=== PATIENT | female | born 1960 | race Caucasian/White ===

== ENCOUNTER 2020-03-27 11:50 | Inpatient (IN) | payer MEDICARE, MEDICAID ==
[2020-03-27] VITALS (7 sets, daily range): BP systolic 65–116; BP diastolic 41–62
[~2020-03-27] VITALS: Ht 162 cm; Wt 176.0 kg
[2020-03-27 12:26] LABS: ABG BASE EXCESS 5.9 MMOL/L (-2.5-2.5); ABG OXYGEN SATURATION 89 % (94-100); ABG PCO2 55 MMHG (35-45); ABG PH 7.37 (7.37-7.43); ABG PO2 63 MMHG (79-93); ABG TCO2 32.2 MMOL/L (21.0-31.0)
[2020-03-27 12:27] LABS: PATIENT TEMP 38.4; VENTILATOR NO
[2020-03-27 12:29] LABS: BASOPHILS % (AUTO) 0 % (0-10); EOSINOPHILS % (AUTO) 0 % (0-10); HEMATOCRIT 39 % (35-52); HEMOGLOBIN 11.8 g/dL (11.5-16.0); LYMPHOCYTES # (AUTO) 0.7 10^3/uL (1.0-4.0); LYMPHOCYTES % (AUTO) 17 % (12-44); MEAN CORPUSCULAR HEMOGLOBIN 28 pg (25-34); MEAN CORPUSCULAR HGB CONC 31 g/dL (32-36); MEAN CORPUSCULAR VOLUME 93 fL (80-99); MEAN PLATELET VOLUME 11.4 fL (9.0-12.2); MONOCYTES # (AUTO) 0.4 10^3/uL (0.0-1.0); MONOCYTES % (AUTO) 8 % (0-12); NEUTROPHILS # (AUTO) 3.2 10^3/uL (1.8-7.8); NEUTROPHILS % (AUTO) 74 % (42-75); PLATELET COUNT 175 10^3/uL (130-400); WHITE BLOOD COUNT 4.3 10^3/uL (4.3-11.0)
[2020-03-27 12:32] LABS: ALBUMIN 3.4 GM/DL (3.2-4.5)
[2020-03-27 12:32] LABS: BILIRUBIN,URINE NEGATIVE (NEGATIVE); CLARITY,URINE CLEAR; COLOR,URINE YELLOW; GLUCOSE, URINE (UA) NEGATIVE (NEGATIVE); KETONES,URINE NEGATIVE (NEGATIVE); LEUKOCYTE ESTERASE ,URINE NEGATIVE (NEGATIVE); NITRITE,URINE POSITIVE (NEGATIVE); PROTEIN,URINE 2+ (NEGATIVE)
--- NOTE | 2020-03-27 12:32 | ED General ---
General Chief Complaint: Respiratory Problems Stated Complaint: COVID + Source of Information: Patient Exam Limitations: No Limitations History of Present Illness Date Seen by Provider: Mar 27, 2020 Time Seen by Provider: 12:00 Initial Comments Patient is a 59-year-old female who presents to the emergency department today with a chief complaint of shortness of breath. Patient lives in a local senior care. She has been in and out of the hospital over the last 6 months with sepsis and then for rehab. Most recent admission to the senior care was a week ago this past Wednesday. Patient had a COVID-19 test on Wednesday. She started developing symptoms in the last 48 hours. She has had shortness of breath productive cough, body aches, generalized weakness. Patient is also had a mild sore throat. She denies headache, GI symptoms, symptoms. She is on supplemental oxygen at 15 L per nonrebreather at the time of my initial evaluation satting 86 to 87%. She exhibits obvious increased work of breathing with 4-5 word sentences. She also complains of a diffuse papular rash to her torso and bilateral upper extremities that has been present for the last week or 2. All other review of systems reviewed and negative except as stated above. Timing/Duration: 2-3 Days Severity: Severe Associated Systoms: Fever/Chills, Malaise, Shortness of Air Allergies and Home Medications Allergies Coded Allergies: Penicillins (Verified Allergy, Unknown, 03/27/20) acetylcholine (Verified Allergy, Unknown, 03/27/20) amoxicillin (Verified Allergy, Unknown, 03/27/20) clarithromycin (Verified Allergy, Unknown, 03/27/20) levofloxacin (Verified Allergy, Unknown, 03/27/20) Patient Home Medication List Home Medication List Reviewed: Yes Review of Systems Review of Systems Constitutional: fever, malaise, weakness EENTM: throat pain Respiratory: cough, short of breath Cardiovascular: no symptoms reported Gastrointestinal: no symptoms reported Genitourinary: no symptoms reported Musculoskeletal: no symptoms reported Skin: rash Psychiatric/Neurological: No Symptoms Reported All Other Systems Reviewed Negative Unless Noted: Yes Physical Exam-Suspected Sepsis Physical Exam Vital Signs Vital Signs - First Documented 03/27/20 14:38 FiO2 100 Capillary Refill : Height, Weight, BMI Height: '" Weight: lbs. oz. kg; BMI Method: General Appearance: No Apparent Distress, WD/WN, Moderate Distress Eyes: Bilateral Eye Normal Inspection, Bilateral Eye PERRL, Bilateral Eye EOMI Neck: Full Range of Motion Respiratory: No Normal Breath Sounds; Respiratory Distress, Rhonci (Coarse rhonchus breath sounds throughout bilateral lung fuller) Cardiovascular: Regular Rate, Rhythm, Tachycardia Gastrointestinal: Normal Bowel Sounds, Non Tender, Soft Extremity: Other (1-2+ edema bilateral lower extremities. 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 Nonexcoriated, nondraining, nonpustular) Focused Exam Lactate Level 03/27/20 12:00: Lactic Acid Level 0.78 Lactic Acid Level Progress/Results/Core Measures Suspected Sepsis SIRS Temperature: Pulse: Respiratory Rate: Laboratory Tests 03/27/20 12:00: White Blood Count 4.3 Blood Pressure / Mean: 03/27/20 12:00: Lactic Acid Level 0.78 Laboratory Tests 03/27/20 12:00: Creatinine 0.85, INR Comment 1.0, Platelet Count 175, Total Bilirubin 0.4 Results/Orders Lab Results Laboratory Tests Test 03/27/20 12:00 03/27/20 12:06 03/27/20 12:19 03/27/20 15:15 Range/Units White Blood Count 4.3 4.3-11.0 10^3/uL Red Blood Count 4.15 3.80-5.11 10^6/uL Hemoglobin 11.8 11.5-16.0 g/dL Hematocrit 39 35-52 % Mean Corpuscular Volume 93 80-99 fL Mean Corpuscular Hemoglobin 28 25-34 pg Mean Corpuscular Hemoglobin Concent 31 L 32-36 g/dL Red Cell Distribution Width 14.2 10.0-14.5 % Platelet Count 175 130-400 10^3/uL Mean Platelet Volume 11.4 9.0-12.2 fL Immature Granulocyte % (Auto) 0 % Neutrophils (%) (Auto) 74 42-75 % Lymphocytes (%) (Auto) 17 12-44 % Monocytes (%) (Auto) 8 0-12 % Eosinophils (%) (Auto) 0 0-10 % Basophils (%) (Auto) 0 0-10 % Neutrophils # (Auto) 3.2 1.8-7.8 10^3/uL Lymphocytes # (Auto) 0.7 L 1.0-4.0 10^3/uL Monocytes # (Auto) 0.4 0.0-1.0 10^3/uL Eosinophils # (Auto) 0.0 0.0-0.3 10^3/uL Basophils # (Auto) 0.0 0.0-0.1 10^3/uL Immature Granulocyte # (Auto) 0.0 0.0-0.1 10^3/uL Prothrombin Time 13.5 12.2-14.7 SEC INR Comment 1.0 0.8-1.4 Activated Partial Thromboplast Time 30 24-35 SEC D-Dimer 1.11 H 0.00-0.49 UG/ML Sodium Level 139 135-145 MMOL/L Potassium Level 4.1 3.6-5.0 MMOL/L Chloride Level 99 98-107 MMOL/L Carbon Dioxide Level 27 21-32 MMOL/L Anion Gap 13 5-14 MMOL/L Blood Urea Nitrogen 13 7-18 MG/DL Creatinine 0.85 0.60-1.30 MG/DL Estimat Glomerular Filtration Rate > 60 BUN/Creatinine Ratio 15 Glucose Level 132 H 70-105 MG/DL Lactic Acid Level 0.78 0.50-2.00 MMOL/L Calcium Level 8.0 L 8.5-10.1 MG/DL Corrected Calcium 8.5 8.5-10.1 MG/DL Total Bilirubin 0.4 0.1-1.0 MG/DL Aspartate Amino Transf (AST/SGOT) 28 5-34 U/L Alanine Aminotransferase (ALT/SGPT) 22 0-55 U/L Alkaline Phosphatase 117 40-136 U/L C-Reactive Protein High Sensitivity 10.77 H 0.00-0.50 MG/DL Total Protein 6.5 6.4-8.2 GM/DL Albumin 3.4 3.2-4.5 GM/DL Triglycerides Level 68 <150 MG/DL Procalcitonin 0.10 H <0.10 NG/ML Blood Gas Puncture Site "AXILLARY" RIGHT RADIAL Blood Gas Patient Temperature 38.4 37.2 Arterial Blood pH 7.37 7.36 L 7.37-7.43 Arterial Blood Partial Pressure CO2 55 H 58 H 35-45 MMHG Arterial Blood Partial Pressure O2 63 L 62 L 79-93 MMHG Arterial Blood HCO3 31 H 32 H 23-27 MMOL/L Arterial Blood Total CO2 32.2 H 33.3 H 21.0-31.0 MMOL/L Arterial Blood Oxygen Saturation 89 L 90 L 94-100 % Arterial Blood Base Excess 5.9 H 6.2 H -2.5-2.5 MMOL/L Luis Test UNK POSITVE Blood Gas Ventilator Setting NO NO Blood Gas Inspired Oxygen UNK 100% BIPAP Urine Color YELLOW Urine Clarity CLEAR Urine pH 6.0 5-9 Urine Specific [place] 1.025 H 1.016-1.022 Urine Protein 2+ H NEGATIVE Urine Glucose (UA) NEGATIVE NEGATIVE Urine Ketones NEGATIVE NEGATIVE Urine Nitrite POSITIVE H NEGATIVE Urine Bilirubin NEGATIVE NEGATIVE Urine Urobilinogen 1.0 < = 1.0 MG/DL Urine Leukocyte Esterase NEGATIVE NEGATIVE Urine RBC (Auto) NEGATIVE NEGATIVE Urine RBC RARE /HPF Urine WBC 0-2 /HPF Urine Squamous Epithelial Cells 10-25 H /HPF Urine Crystals NONE /LPF Urine Bacteria LARGE H /HPF Urine Casts NONE /LPF Urine Mucus NEGATIVE /LPF Urine Yeast MODERATE H /HPF Urine Culture Indicated CULTURE PENDING Test 03/27/20 16:55 03/27/20 18:01 Range/Units Blood Gas Puncture Site RIGHT RADIAL Blood Gas Patient Temperature 36.8 Arterial Blood pH 7.34 *L 7.37-7.43 Arterial Blood Partial Pressure CO2 57 H 35-45 MMHG Arterial Blood Partial Pressure O2 58 L 79-93 MMHG Arterial Blood HCO3 30 H 23-27 MMOL/L Arterial Blood Total CO2 31.4 H 21.0-31.0 MMOL/L Arterial Blood Oxygen Saturation 90 L 94-100 % Arterial Blood Base Excess 4.2 H -2.5-2.5 MMOL/L Luis Test POSITIVE Blood Gas Ventilator Setting YES Blood Gas Inspired Oxygen 100% Glucometer 101 70-110 MG/DL My Orders Orders - EB UNDERWOOD MD Cbc With Automated Diff (03/27/20 12:22) Comprehensive Metabolic Panel (03/27/20 12:22) Blood Culture (03/27/20 12:22) Sputum Culture (03/27/20 12:22) Urinalysis (03/27/20 12:22) Urine Culture (03/27/20 12:22) Protime With Inr (03/27/20 12:22) Partial Thromboplastin Time (03/27/20 12:22) Chest 1 View, Ap/Pa Only (03/27/20 12:22) Ed Iv/Invasive Line Start (03/27/20 12:22) Ed Iv/Invasive Line Start (03/27/20 12:22) Vital Signs Adult Sepsis Patie Q15M (03/27/20 12:22) O2 (03/27/20 12:22) Remove Rings In Anticipation O (03/27/20 12:22) Lactic Acid Analyzer (03/27/20 12:22) Hs C Reactive Protein (03/27/20 12:22) Procalcitonin (Pct) (03/27/20 12:22) Arterial Blood Gas (03/27/20 12:22) Fibrin Degradation Products (03/27/20 12:22) Ns Iv 1000 Ml (Sodium Chloride 0.9%) (03/27/20 13:35) Dexamethasone Injection (Decadron Inje (03/27/20 13:35) Vital Signs/I&O 03/27/20 03/27/20 03/27/20 03/27/20 19:00 19:00 19:00 19:44 Temp 36.7 Pulse 84 84 Resp 24 B/P (MAP) 95/58 Pulse Ox 100 O2 Delivery Mechanical Ventilator Mechanical Ventilator O2 Flow Rate 50.00 50.00 03/27/20 03/27/20 03/27/20 03/27/20 19:55 20:00 20:05 20:12 Temp 37.3 Pulse 73 77 Resp 21 24 B/P (MAP) 91/53 85/51 Pulse Ox 99 100 O2 Delivery Mechanical Ventilator Mechanical Ventilator Mechanical Ventilator Mechanical Ventilator O2 Flow Rate 50.00 45.00 50.00 FiO2 50 03/27/20 03/27/20 03/27/20 03/27/20 20:13 21:00 21:09 21:46 Temp 37.2 37.1 Pulse 93 78 77 79 Resp 23 19 20 B/P (MAP) 85/51 84/53 89/52 Pulse Ox 94 98 95 O2 Delivery Mechanical Ventilator Mechanical Ventilator Mechanical Ventilator O2 Flow Rate 50.00 FiO2 50 50 03/27/20 03/27/20 03/27/20 03/27/20 22:00 22:09 23:00 23:45 Pulse 76 79 95 Resp 24 24 19 B/P (MAP) 90/56 92/53 Pulse Ox 91 93 92 O2 Delivery Mechanical Ventilator Mechanical Ventilator Mechanical Ventilator O2 Flow Rate 50.00 50.00 65.00 FiO2 50 03/28/20 03/28/20 03/28/20 01:00 06:51 06:52 Pulse 94 77 102 Capillary Refill : Diagnostic Imaging Diagonstic Imaging: Xray Plain Films/CT/US/NM/MRI: chest Comments [facility], [place] NAME: JAVIER MERIDA [facility] REC#: [id number] PT STATUS: REG ER : 1960 PHYSICIAN: EB UNDERWOOD MD ADMIT DATE: 03/27/20/ER Draft Date of Exam:03/27/20 CHEST 1 VIEW, AP/PA ONLY INDICATION: Sepsis and respiratory distress, COVID positive Frontal chest obtained at 1236 p.m. and compared to 09/27/2014. The heart is enlarged. There is vascular congestion. There is extensive patchy bilateral infiltrate throughout both lungs which is new compared to the previous study. There is no pneumothorax or pleural fluid. IMPRESSION: Cardiomegaly. Extensive patchy infiltrates throughout both lungs are present which are new compared to the prior study, compatible with pneumonia. Some vascular congestion is present. Report was faxed to [facility] Infection Control by nia at 12:55PM. Dictated on workstation # [id number] Dict: 03/27/20 1251 Trans: 03/27/20 1256 NIA [id number] Interpreted by: NAVIN PARISI MD Electronically signed by: Critical Care Note Critical Care Start Time: 12:00 Stop Time: 13:28 Total Time (minutes) 45 minutes critical care time in the evaluation and management of this patient with hypoxia requiring aggressive supplemental oxygen via Vapotherm, IV fluids, review of labs, chest x-ray, discussion with hospitalist for admission Departure Communication (Admissions) Time/Spoke to Admitting Phy: 13:[address] Renae who accepts the patient for admission to the intensive care unit Impression Primary Impression: Pneumonia Qualified Codes: J18.9 - Pneumonia, unspecified organism Additional Impressions: Coronavirus infection Respiratory failure with hypoxia and hypercapnia Qualified Codes: J96.01 - Acute respiratory failure with hypoxia; J96.02 - Acute respiratory failure with hypercapnia Disposition: 09 ADMITTED INPATIENT Condition: Critical Admissions Decision to Admit Reason: Admit from ER (General) Decision to Admit/Date: Mar 27, 2020 Time/Decision to Admit Time: 13:28 Departure-Patient Inst. Referrals: PHUONG ALICEA DO (PCP/Family) Primary Care Physician EB UNDERWOOD MD Mar 27, 2020 12:32
[2020-03-27 12:33] LABS: CHLORIDE 99 MMOL/L (98-107); POTASSIUM 4.1 MMOL/L (3.6-5.0); SODIUM 139 MMOL/L (135-145)
[2020-03-27 12:35] LABS: GLUCOSE 132 MG/DL (70-105); TOTAL PROTEIN 6.5 GM/DL (6.4-8.2)
[2020-03-27 12:36] LABS: CARBON DIOXIDE 27 MMOL/L (21-32)
[2020-03-27 12:37] LABS: BILIRUBIN,TOTAL 0.4 MG/DL (0.1-1.0)
[2020-03-27 12:39] LABS: ALKALINE PHOSPHATASE 117 U/L (40-136); CREATININE SERUM 0.85 MG/DL (0.60-1.30); GFR ESTIMATED > 60
[2020-03-27 12:40] LABS: BUN/CREATININE RATIO 15; FIBRIN DEGRADATION PRODUCTS 1.11 UG/ML (0.00-0.49); PROTHROMBIN TIME PATIENT 13.5 SEC (12.2-14.7)
[2020-03-27 12:42] LABS: ALANINE AMINOTRANSFERASE 22 U/L (0-55)
[2020-03-27 12:54] LABS: BACTERIA,URINE LARGE /HPF; RBC,URINE RARE /HPF; WBC,URINE 0-2 /HPF; YEAST,URINE MODERATE /HPF
--- NOTE | 2020-03-27 12:57 | Diagnostic Imaging Report ---
INDICATION: Sepsis and respiratory distress, COVID positive Frontal chest obtained at 1236 p.m. and compared to 09/27/2014. The heart is enlarged. There is vascular congestion. There is extensive patchy bilateral infiltrate throughout both lungs which is new compared to the previous study. There is no pneumothorax or pleural fluid. IMPRESSION: Cardiomegaly. Extensive patchy infiltrates throughout both lungs are present which are new compared to the prior study, compatible with pneumonia. Some vascular congestion is present. Report was faxed to [facility] by myles at 12:55PM. Dictated by: Dictated on workstation # [id number]
[2020-03-27] MEDS ORDERED: NS IV 1000 ML 1,000 ML IV STA (13:35)
--- NOTE | 2020-03-27 13:35 | NUR ---
SEE LIST FOR CURRENT MEDS
[2020-03-27 15:25] LABS: ABG BASE EXCESS 6.2 MMOL/L (-2.5-2.5); ABG OXYGEN SATURATION 90 % (94-100); ABG PCO2 58 MMHG (35-45); ABG PH 7.36 (7.37-7.43); ABG PO2 62 MMHG (79-93); ABG TCO2 33.3 MMOL/L (21.0-31.0); ALLENS TEST POSITVE; INSPIRED O2 100% BIPAP; PATIENT TEMP 37.2; VENTILATOR NO
[2020-03-27] MEDS ORDERED: PROPOFOL DRIP (ICU) 100 ML IV ONE ×2 (15:29→15:53)
[2020-03-27] MEDS: NS IV 1000 ML 1,000 ML IV SCH (15:30)
[2020-03-27] MEDS ORDERED: CATHETER FLUSH 10 ML SYR IV PRN (15:45)
[2020-03-27] MEDS ORDERED: fentaNYL DRIP PRE-MIX 250 ML IV ONE (15:53)
--- NOTE | 2020-03-27 16:04 | Pulmonary Procedures ---
Pulmonary Procedures Date of Procedure Date of Service: Mar 27, 2020 Reason for Intubation: Acute respiratory failure Time of Intubation: 16:04 Intubation Method: orotracheal Medications: Fentanyl, Propofol, Rocuronium, Versed Positive End Tide CO2: Yes Breath Sounds after Intubation: bilateral-equal Intubation Complications: no complications Post Intubation Xray: Yes WINIFRED LEON DO Mar 27, 2020 16:04
--- NOTE | 2020-03-27 16:11 | Pulmonary Consultation ---
History of Present Illness History of Present Illness Date Seen by Provider: Mar 27, 2020 Time Seen by Provider: 16:05 Date of Admission History of Present Illness 59yo from [facility] presented to ED secondary to worsening SOB She has been in and out of the hospital over the last 6 months with sepsis and then for rehab. Most recent admission to the snf was a week ago this past Wednesday. Patient had a COVID-19 test on Wednesday. She started developing symptoms in the last 48 hours. She has had shortness of breath productive cough, body aches, generalized weakness. Patient is also had a mild sore throat. She has had diffuse papular rash to her torso and bilateral upper extremities that has been present for the last week or 2. denies headache, GI symptoms, symptoms. All information obtained from chart because pt is in acute respiratory distress and currnetly on BiPAP with 100%. Allergies and Home Medications Allergies Coded Allergies: Penicillins (Verified Allergy, Unknown, 03/27/20) acetylcholine (Verified Allergy, Unknown, 03/27/20) amoxicillin (Verified Allergy, Unknown, 03/27/20) clarithromycin (Verified Allergy, Unknown, 03/27/20) levofloxacin (Verified Allergy, Unknown, 03/27/20) Home Medications Aripiprazole 5 Mg Tablet, 7.5 MG PO DAILY, (Reported) TAKES 1 & (5MG) TABS Ascorbate Calcium 500 Mg Tablet, 500 MG PO DAILY, (Reported) Bupropion HCl 75 Mg Tablet, 150 MG PO TID, (Reported) TAKES 2 (75MG) TABS Cephalexin 250 Mg Capsule, 250 MG PO QID, (Reported) OMNICEARE FILLED #120/30 DAY SUPPLY Cetirizine HCl 10 Mg Tablet, 10 MG PO HS, (Reported) Cholecalciferol (Vitamin D3) 125 Mcg Tablet, 125 MCG PO DAILY, (Reported) Docusate Sodium 100 Mg Tablet, 100 MG PO BID, (Reported) Famotidine 20 Mg Tablet, 20 MG PO BID, (Reported) Formoterol Fumarate 20 Mcg/2 Ml Vial.neb, 20 MCG IH DAILY, (Reported) Guaifenesin 100 Mg/5 Ml Liquid, 5 ML PO Q4H PRN for COUGH, (Reported) Hydroxyzine HCl 25 Mg Tablet, 25 MG PO Q8H PRN for ITCHING, (Reported) Levothyroxine Sodium 200 Mcg Tablet, 200 MCG PO DAILY, (Reported) Lidocaine 1 Each Adh..patch, 1 EACH TP DAILY, (Reported) REMOVE PATCH AT BEDTIME Lisinopril 5 Mg Tablet, 5 MG PO DAILY, (Reported) Melatonin 3 Mg Tablet, 3 MG PO HS, (Reported) Menthol 5.8 Mg Lozenge, 5.8 MG MM Q4H PRN for COUGH, (Reported) Mirabegron 50 Mg Tab.er.24h, 50 MG PO DAILY, (Reported) Oxycodone HCl 10 Mg Tab.er.12h, 10 MG PO DAILY, (Reported) Oxycodone HCl 5 Mg Tablet, 5 MG PO Q6H PRN for PAIN-SEVERE (8-10), (Reported) Pantoprazole Sodium 40 Mg Tablet.dr, 40 MG PO DAILY, (Reported) Polyethylene Glycol 3350 17 Gm Powd.pack, 17 GM PO DAILY, (Reported) Pregabalin 200 Mg Capsule, 200 MG PO 0900,1700, (Reported) Zinc Gluconate 50 Mg Tablet, 50 MG PO DAILY, (Reported) Past Lcurtny-Qnpssr-Zifbuz Hx Patient Social History Alcohol Use: Denies Use Recreational Drug Use: No Recent Foreign Travel: No Contact w/Someone Who Travel: No Recent Infectious Disease Expo: No Recent Hopitalizations: Yes Physical Abuse: No Sexual Abuse: No Immunizations Up To Date Date of Influenza Vaccine: Feb 02, 2020 Seasonal Allergies Seasonal Allergies: No Past Medical History Respiratory: Yes Asthma Cardiac: No Neurological: No Genitourinary: No Gastrointestinal: Yes Gastroesophageal Reflux Musculoskeletal: Yes Arthritis Endocrine: Yes Diabetes, Insulin dep, Hypothyroidsim HEENT: No Cancer: No Psychosocial: Yes Depression Integumentary: No Review of Systems Time Seen by Provider: 16:17 Sepsis Event Evaluation Height, Weight, BMI Height: '" Weight: lbs. oz. kg; 67.00 BMI Method: Exam Exam Vital Signs Date Time Temp Pulse Resp B/P (MAP) Pulse Ox O2 Delivery O2 Flow Rate FiO2 03/27/20 15:35 37.3 03/27/20 14:49 91 26 91 100.00 03/27/20 14:38 87 Vapotherm 40.00 100 03/27/20 14:05 93 40 119/60 (91) 93 Vapotherm 03/27/20 11:50 87 Non Rebreather 15.00 03/27/20 11:50 38.3 106 33 121/76 (91) 87 Non Rebreather 15.00 Height & Weight Height: '" Weight: lbs. oz. kg; 67.00 BMI Method: General Appearance: No Apparent Distress, WD/WN, Moderate Distress Neck: Full Range of Motion Respiratory: No Normal Breath Sounds; Respiratory Distress, Rhonci (Coarse rhonchus breath sounds throughout bilateral lung fuller) Cardiovascular: Regular Rate, Rhythm, Tachycardia Capillary Refill: Less Than 3 Seconds Extremity: Other (1-2+ edema bilateral lower extremities. 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
[2020-03-27] MEDS ORDERED: REMDESIVIR INJ 200 MG in NS (IVPB) 210 ML IV NR (16:15)
[2020-03-27] MEDS ORDERED: FLUCONAZOLE 200 MG/100 ML 100 ML IV NR (16:15)
[2020-03-27] MEDS: PROPOFOL DRIP (ICU) 100 ML IV SCH ×2 (16:16→21:09)
[2020-03-27] MEDS: fentaNYL DRIP PRE-MIX 250 ML IV SCH (16:17)
--- NOTE | 2020-03-27 16:44 | Diagnostic Imaging Report ---
INDICATION: Intubation. TECHNIQUE: Single view chest 4:16 PM. CORRELATION STUDY: 03/27/2020 FINDINGS: There has been placement of an endotracheal tube, tip projecting over the trachea approximately clavicles above the candice. Gastric tube has also been placed. Tip cannot be definitively confirmed on this study. Heart size and mediastinum appear generally stable. Extensive patchy infiltrates throughout both lung fuller left slightly greater than right are again demonstrated. IMPRESSION: 1. Interval intubation. Tip projecting over the trachea above the candice. 2. Gastric tube has also been placed, however tip confirmation cannot be definitively determined on this study. 3. Extensive bilateral pulmonary infiltrates do persist left slightly greater than right. Dictated by: Dictated on workstation # [id number]
[2020-03-27 17:11] LABS: ABG BASE EXCESS 4.2 MMOL/L (-2.5-2.5); ABG OXYGEN SATURATION 90 % (94-100); ABG PCO2 57 MMHG (35-45); ABG PO2 58 MMHG (79-93); ABG TCO2 31.4 MMOL/L (21.0-31.0)
[2020-03-27 17:14] LABS: ABG PH 7.34 (7.37-7.43); ALLENS TEST POSITIVE
[2020-03-27 17:15] LABS: INSPIRED O2 100%; PATIENT TEMP 36.8; VENTILATOR YES
--- NOTE | 2020-03-27 17:31 | NUR ---
Timeline note: 1544- 2mg Versed administered 1544- NS bolus started 1550- 2 mg Versed administered 1550- 5 cc propofol administered by Dr. Mcclure 1551- 50 mg of Rocuronium administered 1552- 5 cc propofol administered by Dr. Mcclure 1552- 8.0 24 at lip-color change. 400 VT 24 R P16 FIO2 100 1558- xray called 1558- OG tube placed.
[2020-03-27] MEDS ORDERED: fentaNYL INJECTION 100 MCG/2 ML AMP IV ONE (20:16)
[2020-03-27] MEDS ORDERED: ROCURONIUM 10 MG/ML 5 ML SYRINGE IV ONE (20:16)
[2020-03-27] MEDS ORDERED: MIDAZOLAM 5 MG/5 ML (VERSED) VIAL IJ ONE (20:16)
[2020-03-28] MEDS: NS IV 1000 ML 1,000 ML IV SCH ×5 (00:23→20:33)
[2020-03-28 03:41] LABS: BASOPHILS % (AUTO) 0 % (0-10); HEMOGLOBIN 10.1 g/dL (11.5-16.0); MEAN CORPUSCULAR VOLUME 94 fL (80-99)
[2020-03-28 04:14] LABS: POTASSIUM 3.9 MMOL/L (3.6-5.0)
[2020-03-28 04:15] LABS: CALCIUM 7.5 MG/DL (8.5-10.1)
[2020-03-28 04:19] LABS: PHOSPHORUS 2.8 MG/DL (2.3-4.7)
[2020-03-28 04:20] LABS: CREATININE SERUM 1.07 MG/DL (0.60-1.30)
[2020-03-28 04:22] LABS: MAGNESIUM 1.9 MG/DL (1.6-2.4)
[2020-03-28] MEDS: inSUlin ASPART (NovoLOG) 1 UNIT/0.01 ML (CHARGE PER UNIT) SC SCH ×4 (06:43→17:41)
[2020-03-28 06:47] VITALS: BP 92/54
[2020-03-28] MEDS: PROPOFOL DRIP (ICU) 100 ML IV SCH ×8 (06:51→23:49)
[2020-03-28 07:06] LABS: EOSINOPHILS % (AUTO) 1 % (0-10); HEMATOCRIT 33 % (35-52); LYMPHOCYTES # (AUTO) 0.8 10^3/uL (1.0-4.0); LYMPHOCYTES % (AUTO) 24 % (12-44); MEAN CORPUSCULAR HEMOGLOBIN 28 pg (25-34); MEAN CORPUSCULAR HGB CONC 30 g/dL (32-36); MEAN PLATELET VOLUME 11.7 fL (9.0-12.2); MONOCYTES # (AUTO) 0.2 10^3/uL (0.0-1.0); MONOCYTES % (AUTO) 7 % (0-12); NEUTROPHILS # (AUTO) 2.2 10^3/uL (1.8-7.8); NEUTROPHILS % (AUTO) 68 % (42-75); PLATELET COUNT 140 10^3/uL (130-400); WHITE BLOOD COUNT 3.2 10^3/uL (4.3-11.0)
--- NOTE | 2020-03-28 07:37 | Diagnostic Imaging Report ---
INDICATION: Dyspnea. COMPARISON: 03/27/2020 FINDINGS: Single frontal radiographic view of the chest was obtained. Indwelling endotracheal tube is seen with tip approximately 2 cm above the candice. Gastric tube is also present with side-port just above the esophageal hiatus by approximately 2 cm. Tip likely terminates within the stomach. Lungs continue to show diffuse patchy and confluent bilateral infiltrates. Overall lung volumes are slightly diminished compared to prior exam, but otherwise aeration appears stable. There is no large effusion or pneumothorax. Cardiac silhouette is stable as well. IMPRESSION: 1. Interval diminished lung volumes, but otherwise stable bilateral diffuse infiltrates. 2. Lines and tubes as above. Dictated by: Dictated on workstation # [id number]
[2020-03-28 07:49] LABS: ABG PH 7.41 (7.37-7.43)
[2020-03-28 07:50] LABS: ABG BASE EXCESS 4.5 MMOL/L (-2.5-2.5); ABG OXYGEN SATURATION 91 % (94-100); ABG PCO2 47 MMHG (35-45); ABG PO2 63 MMHG (79-93); ABG TCO2 30.5 MMOL/L (21.0-31.0)
[2020-03-28 07:52] LABS: ALLENS TEST YES-POS; INSPIRED O2 100%; PATIENT TEMP 37; VENTILATOR YES
[2020-03-28] MEDS: ENOXAPARIN 60 MG/0.6 ML (LOVENOX) SYR SC SCH ×2 (08:00→20:30)
[2020-03-28] MEDS: PANTOPRAZOLE 40 MG (PROTONIX) VIAL IV SCH (08:00)
[2020-03-28] MEDS: FLUCONAZOLE 100 MG/50 ML IVPB IV SCH ×2 (08:09)
--- NOTE | 2020-03-28 08:29 | Occ Therapy Progress Note ---
Therapy Progress Note OT orders received, chart reviewed. Pt. currently being sedated and intubated. Will continue to monitor pt. and assess when medically stable. [id number] TRISTIAN YUAN OT Mar 28, 2020 08:29
[2020-03-28] MEDS ORDERED: ENOXAPARIN 40 MG/0.4 ML (LOVENOX) SYR SC SCH (09:00)
[2020-03-28] MEDS ORDERED: FLUCONAZOLE 200 MG/100 ML 50 ML, EMPTY IV BAG (PVC) 1 EA IV SCH ×2 (09:00)
[2020-03-28] MEDS: fentaNYL DRIP PRE-MIX 250 ML IV SCH ×3 (09:05→23:47)
--- NOTE | 2020-03-28 09:25 | NUR ---
Phone call placed to sister Chapman. Update given and questions answered. Obtained consent for picc line, verified with [facility] Leyva. Family has no further questions or concerns at this time.
[2020-03-28 10:25] VITALS: BP 115/102
[2020-03-28] MEDS: cefTRIAXone 1,000 MG/SWFI 10 ML IV PUSH IV SCH ×2 (11:30)
[2020-03-28] MEDS ORDERED: ARIP5TAB12 PO (12:01)
[2020-03-28] MEDS ORDERED: MENT5.8L MM (12:01)
[2020-03-28] MEDS ORDERED: ASCO-262 PO (12:01)
[2020-03-28] MEDS ORDERED: BUPR-168 PO (12:01)
[2020-03-28] MEDS ORDERED: CETI10TA17 PO (12:01)
[2020-03-28] MEDS ORDERED: OXYC-473 PO (12:01)
[2020-03-28] MEDS ORDERED: DOCU100T2 PO (12:01)
[2020-03-28] MEDS ORDERED: MELA3TAB39 PO (12:01)
[2020-03-28] MEDS ORDERED: LEVO200T6 PO (12:01)
[2020-03-28] MEDS ORDERED: FORM20VI IH (12:01)
[2020-03-28] MEDS ORDERED: MIRA50TA PO (12:01)
[2020-03-28] MEDS ORDERED: ZINC50TA11 PO (12:01)
[2020-03-28] MEDS ORDERED: FAMO20TA5 PO (12:01)
[2020-03-28] MEDS ORDERED: OXC10TCR PO (12:01)
[2020-03-28] MEDS ORDERED: CHOL500044 PO (12:01)
[2020-03-28] MEDS ORDERED: CEPH-506 PO (12:01)
[2020-03-28] MEDS ORDERED: GUAI100L13 PO (12:01)
[2020-03-28] MEDS ORDERED: LIDO1ADH TP (12:01)
[2020-03-28] MEDS ORDERED: LISI-556 PO (12:01)
[2020-03-28] MEDS ORDERED: HYDR-700 PO (12:01)
[2020-03-28] MEDS ORDERED: PANT40TA2 PO (12:01)
[2020-03-28] MEDS ORDERED: PREG200C PO (12:01)
[2020-03-28] MEDS ORDERED: POLY17PO6 PO (12:01)
--- NOTE | 2020-03-28 12:02 | NUR ---
MED REC WAS ENTERED USING THE MAR FROM [facility] I CALLED [facility] TO VERIFY THAT BOTH OXYCODONE 5MG AND OXYCODONE ER 10MG WERE BOTH DISPENSED AND WAS TOLD YES THEY FILL BOTH FOR THE PT. I ALSO ASKED THE QTY DISPENSED ON CEPHALEXIN 250MG AND WAS TOLD #120 WERE SENT OUT
--- NOTE | 2020-03-28 14:30 | NUR ---
Edgar Scale 12. patient proned at this time, unable to assess anterior skin. posterior skin shows no skin breakdown over bony prominences. shortened bed bath given, barrier cream applied to all skin fold areas on legs, arms, sides. gluteal fold darkened, no MASD or other skin breakdown at this time. area cleansed, zinc barrier cream applied. Heels dry et peeling. small calluses bilaterally at lateral 5th metatarsophalangeal joint. skin cream applied to peeling and callused areas. SCD's and foot floating booties reapplied/on. Sacral, vertebral, and scapular allevyns placed at this time. Unable to assess patient anterior skin at this time. Patient to be turned supine in early am hours. This RN to assess anterior body skin in am once patient is supine. will con't to monitor.
[2020-03-28 14:47] VITALS: BP 111/67
--- NOTE | 2020-03-28 15:33 | NUR ---
During care rounds, it was discussed to start TF. Recommended Pulmocare at 15ml/hr with 25ml free water flushes q4h for hydration status and to prevent the tube from clogging. Will continue to follow and reassess as pt needs, intake, and status change. Srinivasa Franks, MS RD LD [phone] cell
[2020-03-28] MEDS: REMDESIVIR INJ 100 MG in NS (IVPB) 230 ML IV SCH (15:37)
[2020-03-28 18:37] VITALS: BP 116/67
[2020-03-28 21:57] VITALS: BP 118/67
[2020-03-29] MEDS: inSUlin ASPART (NovoLOG) 1 UNIT/0.01 ML (CHARGE PER UNIT) SC SCH ×5 (01:34→23:55)
[2020-03-29] MEDS: NS IV 1000 ML 1,000 ML IV SCH (03:15)
[2020-03-29 03:18] VITALS: BP 123/71
[2020-03-29 03:34] LABS: ABG BASE EXCESS -1.7 MMOL/L (-2.5-2.5); ABG OXYGEN SATURATION 91 % (94-100); ABG PCO2 50 MMHG (35-45); ABG PO2 67 MMHG (79-93); ABG TCO2 25.4 MMOL/L (21.0-31.0)
[2020-03-29 03:48] LABS: ALLENS TEST POS; INSPIRED O2 80%; VENTILATOR YES
[2020-03-29 03:49] LABS: PATIENT TEMP 37
[2020-03-29] MEDS: PROPOFOL DRIP (ICU) 100 ML IV SCH ×8 (04:27→20:24)
[2020-03-29 04:56] LABS: BASOPHILS % (AUTO) 0 % (0-10); EOSINOPHILS % (AUTO) 0 % (0-10); HEMATOCRIT 39 % (35-52); LYMPHOCYTES # (AUTO) 0.3 10^3/uL (1.0-4.0); LYMPHOCYTES % (AUTO) 10 % (12-44); MEAN CORPUSCULAR HEMOGLOBIN 28 pg (25-34); MEAN CORPUSCULAR HGB CONC 29 g/dL (32-36); MEAN CORPUSCULAR VOLUME 99 fL (80-99); MEAN PLATELET VOLUME 11.6 fL (9.0-12.2); MONOCYTES # (AUTO) 0.2 10^3/uL (0.0-1.0); MONOCYTES % (AUTO) 6 % (0-12); NEUTROPHILS # (AUTO) 2.3 10^3/uL (1.8-7.8); NEUTROPHILS % (AUTO) 84 % (42-75); PLATELET COUNT 159 10^3/uL (130-400); WHITE BLOOD COUNT 2.7 10^3/uL (4.3-11.0)
[2020-03-29 05:09] LABS: CHLORIDE 111 MMOL/L (98-107); POTASSIUM 4.6 MMOL/L (3.6-5.0); SODIUM 141 MMOL/L (135-145)
[2020-03-29 05:11] LABS: GLUCOSE 150 MG/DL (70-105); TRIGLYCERIDES 96 MG/DL (<150)
[2020-03-29 05:12] LABS: CARBON DIOXIDE 17 MMOL/L (21-32)
[2020-03-29 05:14] LABS: PHOSPHORUS 4.1 MG/DL (2.3-4.7)
[2020-03-29 05:15] LABS: BUN/CREATININE RATIO 23; CREATININE SERUM 0.74 MG/DL (0.60-1.30); GFR ESTIMATED > 60
[2020-03-29 05:17] LABS: MAGNESIUM 2.2 MG/DL (1.6-2.4)
--- NOTE | 2020-03-29 05:39 | Pulmonary Progress Note ---
Subjective Date Seen by a Provider: Mar 28, 2020 (Late note. ) Time Seen by a Provider: 05:38 Subjective/Events-last exam Sedated on vent. Sepsis Event Evaluation Height, Weight, BMI Height: '" Weight: lbs. oz. kg; 67.00 BMI Method: Focused Exam Lactate Level 03/27/20 12:00: Lactic Acid Level 0.78 Exam Exam Vital Signs Date Time Temp Pulse Resp B/P (MAP) Pulse Ox O2 Delivery O2 Flow Rate FiO2 03/29/20 05:00 54 23 127/71 94 Mechanical Ventilator 80.00 03/29/20 04:27 56 121/69 03/29/20 04:00 56 23 129/72 93 Mechanical Ventilator 80.00 03/29/20 03:18 56 24 95 80 03/29/20 03:00 55 24 125/69 98 Mechanical Ventilator 80.00 03/29/20 02:00 56 24 117/68 99 Mechanical Ventilator 80.00 03/29/20 01:00 64 23 137/72 98 Mechanical Ventilator 80.00 03/29/20 01:00 64 03/29/20 00:00 59 24 117/66 97 Mechanical Ventilator 80.00 03/28/20 23:49 69 140/77 03/28/20 23:00 56 24 140/77 96 Mechanical Ventilator 80.00 03/28/20 22:00 56 23 114/66 96 Mechanical Ventilator 80.00 03/28/20 21:57 56 24 96 80 03/28/20 21:00 57 24 118/67 95 Mechanical Ventilator 80.00 03/28/20 21:00 96 Mechanical Ventilator 80 03/28/20 20:33 74 117/67 03/28/20 20:00 73 24 106/62 97 Mechanical Ventilator 80.00 03/28/20 19:28 36.0 03/28/20 19:00 75 03/28/20 19:00 74 24 121/70 95 Mechanical Ventilator 80.00 03/28/20 18:37 77 24 90 80 03/28/20 18:30 23 94 Mechanical Ventilator 80.00 03/28/20 18:00 77 23 112/66 97 Mechanical Ventilator 80.00 03/28/20 17:59 89 129/77 03/28/20 17:00 88 23 120/71 94 Mechanical Ventilator 80.00 03/28/20 16:00 89 23 129/77 97 Mechanical Ventilator 80.00 03/28/20 15:56 36.6 03/28/20 15:00 92 24 119/74 96 Mechanical Ventilator 80.00 03/28/20 14:47 93 24 95 80 03/28/20 14:27 84 102/64 03/28/20 14:00 85 23 111/67 96 Mechanical Ventilator 80.00 03/28/20 13:00 99 24 114/69 95 Mechanical Ventilator 80.00 03/28/20 12:42 81 03/28/20 12:00 37.3 84 24 102/64 95 Mechanical Ventilator 80.00 03/28/20 11:36 102 115/102 03/28/20 11:00 99 24 103/62 95 Mechanical Ventilator 80.00 03/28/20 10:25 102 24 93 80 03/28/20 10:00 102 19 102/64 93 Mechanical Ventilator 80.00 03/28/20 09:00 98 19 103/62 95 Mechanical Ventilator 80.00 03/28/20 08:11 37.9 24 95 Mechanical Ventilator 80.00 03/28/20 08:02 102 94/68 03/28/20 08:00 100 24 95/63 96 Mechanical Ventilator 80.00 03/28/20 07:00 99 23 98/59 96 Mechanical Ventilator 80.00 03/28/20 06:52 102 03/28/20 06:51 77 03/28/20 06:47 101 24 95 80 03/28/20 06:40 81 03/28/20 06:00 115 23 94/68 96 Mechanical Ventilator 80.00 03/28/20 05:50 37.1 94 19 92/53 92 Mechanical Ventilator 40.00 80.00 I & O 03/29/20 07:00 Intake Total 50 ml Output Total 2200 ml Balance -2150 ml Height & Weight Height: '" Weight: lbs. oz. kg; 67.00 BMI Method: General Appearance: No Apparent Distress, WD/WN, Moderate Distress Neck: Full Range of Motion Respiratory: No Normal Breath Sounds; Respiratory Distress, Rhonci (Coarse rhonchus breath sounds throughout bilateral lung fuller) Cardiovascular: Regular Rate, Rhythm, Tachycardia Capillary Refill: Less Than 3 Seconds Extremity: Other (1-2+ edema bilateral lower extremities. 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
[2020-03-29] MEDS ORDERED: FUROSEMIDE 40 MG/4 ML INJ (LASIX) IVP ONE (05:45)
--- NOTE | 2020-03-29 05:45 | Pulmonary Progress Note ---
Subjective Time Seen by a Provider: 05:39 Subjective/Events-last exam Sedated on vent. Sepsis Event Evaluation Height, Weight, BMI Height: '" Weight: lbs. oz. kg; 67.00 BMI Method: Focused Exam Lactate Level 03/27/20 12:00: Lactic Acid Level 0.78 Exam Exam Vital Signs Date Time Temp Pulse Resp B/P (MAP) Pulse Ox O2 Delivery O2 Flow Rate FiO2 03/29/20 05:00 54 23 127/71 94 Mechanical Ventilator 80.00 03/29/20 04:27 56 121/69 03/29/20 04:00 56 23 129/72 93 Mechanical Ventilator 80.00 03/29/20 03:18 56 24 95 80 03/29/20 03:00 55 24 125/69 98 Mechanical Ventilator 80.00 03/29/20 02:00 56 24 117/68 99 Mechanical Ventilator 80.00 03/29/20 01:00 64 23 137/72 98 Mechanical Ventilator 80.00 03/29/20 01:00 64 03/29/20 00:00 59 24 117/66 97 Mechanical Ventilator 80.00 03/28/20 23:49 69 140/77 03/28/20 23:00 56 24 140/77 96 Mechanical Ventilator 80.00 03/28/20 22:00 56 23 114/66 96 Mechanical Ventilator 80.00 03/28/20 21:57 56 24 96 80 03/28/20 21:00 57 24 118/67 95 Mechanical Ventilator 80.00 03/28/20 21:00 96 Mechanical Ventilator 80 03/28/20 20:33 74 117/67 03/28/20 20:00 73 24 106/62 97 Mechanical Ventilator 80.00 03/28/20 19:28 36.0 03/28/20 19:00 75 03/28/20 19:00 74 24 121/70 95 Mechanical Ventilator 80.00 03/28/20 18:37 77 24 90 80 03/28/20 18:30 23 94 Mechanical Ventilator 80.00 03/28/20 18:00 77 23 112/66 97 Mechanical Ventilator 80.00 03/28/20 17:59 89 129/77 03/28/20 17:00 88 23 120/71 94 Mechanical Ventilator 80.00 03/28/20 16:00 89 23 129/77 97 Mechanical Ventilator 80.00 03/28/20 15:56 36.6 03/28/20 15:00 92 24 119/74 96 Mechanical Ventilator 80.00 03/28/20 14:47 93 24 95 80 03/28/20 14:27 84 102/64 03/28/20 14:00 85 23 111/67 96 Mechanical Ventilator 80.00 03/28/20 13:00 99 24 114/69 95 Mechanical Ventilator 80.00 03/28/20 12:42 81 03/28/20 12:00 37.3 84 24 102/64 95 Mechanical Ventilator 80.00 03/28/20 11:36 102 115/102 03/28/20 11:00 99 24 103/62 95 Mechanical Ventilator 80.00 03/28/20 10:25 102 24 93 80 03/28/20 10:00 102 19 102/64 93 Mechanical Ventilator 80.00 03/28/20 09:00 98 19 103/62 95 Mechanical Ventilator 80.00 03/28/20 08:11 37.9 24 95 Mechanical Ventilator 80.00 03/28/20 08:02 102 94/68 03/28/20 08:00 100 24 95/63 96 Mechanical Ventilator 80.00 03/28/20 07:00 99 23 98/59 96 Mechanical Ventilator 80.00 03/28/20 06:52 102 03/28/20 06:51 77 03/28/20 06:47 101 24 95 80 03/28/20 06:40 81 03/28/20 06:00 115 23 94/68 96 Mechanical Ventilator 80.00 03/28/20 05:50 37.1 94 19 92/53 92 Mechanical Ventilator 40.00 80.00 I & O 03/29/20 07:00 Intake Total 50 ml Output Total 2200 ml Balance -2150 ml Height & Weight Height: '" Weight: lbs. oz. kg; 67.00 BMI Method: General Appearance: No Apparent Distress, WD/WN, Moderate Distress Neck: Full Range of Motion Respiratory: No Normal Breath Sounds; Respiratory Distress, Rhonci (Coarse rhonchus breath sounds throughout bilateral lung fuller) Cardiovascular: Regular Rate, Rhythm, Tachycardia Capillary Refill: Less Than 3 Seconds Extremity: Other (1-2+ edema bilateral lower extremities. 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
[2020-03-29] MEDS: fentaNYL DRIP PRE-MIX 250 ML IV SCH ×4 (07:18→21:10)
[2020-03-29 07:54] VITALS: BP 121/67
[2020-03-29] MEDS ORDERED: RT-ALBUTEROL INHALER HFA (VENTOLIN HFA) 18 GM IH PRN (08:00)
[2020-03-29] MEDS ORDERED: IPRATROPIUM INHALER (ATROVENT) 12.9 GM INH PRN (08:00)
[2020-03-29] MEDS: PANTOPRAZOLE 40 MG (PROTONIX) VIAL IV SCH (08:56)
[2020-03-29] MEDS: ENOXAPARIN 60 MG/0.6 ML (LOVENOX) SYR SC SCH ×2 (08:57→20:21)
[2020-03-29] MEDS: FLUCONAZOLE 100 MG/50 ML IVPB IV SCH ×2 (08:57)
[2020-03-29] MEDS: cefTRIAXone 1,000 MG/SWFI 10 ML IV PUSH IV SCH ×2 (08:59)
--- NOTE | 2020-03-29 09:58 | NUR ---
frontal skin cleansed. skin under breast tissue and in folds healthy, pink. skin under pannus reddened & darkened, pillowcase placed prior to assessment. areas cleansed, dried. barrier cream applied. will con't to monitor.
[2020-03-29] MEDS ORDERED: ZINC OXIDE 40% (Butt Paste MAX/Desitin) 57 gm TOP PRN (10:00)
--- NOTE | 2020-03-29 10:33 | Diagnostic Imaging Report ---
INDICATION: COVID positive, dyspnea, on mechanical ventilation. TECHNIQUE: Single view chest 9:38 AM. CORRELATION STUDY: 03/28/2020 FINDINGS: Endotracheal tube projects over the trachea just below the clavicles. Gastric tube is also present. Tip is not well-defined but appears to pass below left hemidiaphragm. Heart size remains enlarged and mediastinum prominent. Bilateral pulmonary infiltrates are again demonstrated but overall appear perhaps slightly improved from prior. IMPRESSION: 1. Extensive bilateral pulmonary infiltrates persisting but does appear to be slightly improved from one day earlier. 2. Generally stable appearance about support lines and tubes. Gastric tube however is not well visualized. Report was faxed to [facility] by myles at 10:32am. Dictated by: Dictated on workstation # [id number]
[2020-03-29] MEDS: LACTATED RINGERS 1,000 ML IV SCH (10:34)
--- NOTE | 2020-03-29 10:38 | Physical Therapy Progress Note ---
Therapy Progress Note Pt is currently sedated and intubated. PROM B U/LE's performed. RANJANA ANDERSON PT Mar 29, 2020 10:38
[2020-03-29 11:55] VITALS: BP 150/81
[2020-03-29] MEDS: IPRATROPIUM INHALER (ATROVENT) 12.9 GM INH SCH ×5 (11:55→21:58)
[2020-03-29] MEDS: RT-ALBUTEROL INHALER HFA (VENTOLIN HFA) 18 GM IH SCH ×4 (11:55→21:58)
[2020-03-29] MEDS: MEROPENEM 500 MG/SWFI 10 ML IV PUSH IV SCH ×6 (12:32→23:54)
--- NOTE | 2020-03-29 14:02 | Diagnostic Imaging Report ---
INDICATION: Line placement. TECHNIQUE: Single view chest 1:09 PM. CORRELATION STUDY: 03/29/2020 FINDINGS: Right upper extremity central line has been placed. There is a folding of the distal tip with the tip inverted and directed superiorly may be extending into the innominate vein. Heart size enlarged. Mediastinum stable. Vasculature is slightly prominent. Scattered bilateral pulmonary infiltrates are present most pronounced at the left lower lobe. IMPRESSION: 1. Right upper extremity central line has been placed tip is partially folded on itself. This should be retracted at least 2 cm upon unfolding of the catheter with perhaps slight interval re-advancement. 2. Bilateral pulmonary infiltrates persisting greatest involving the left lung base. Report was called to [facility] by myles at 2:05p.m. Dictated by: Dictated on workstation # [id number]
[2020-03-29 14:45] VITALS: BP 145/81
--- NOTE | 2020-03-29 15:05 | NUR ---
Note pt is currently intubated/sedated. Pt currently receiving TF of Pulmocare at 15ml/hr with 25ml flushes q4h. Would recommend conservative increases of 10ml q12h as medically able and as tolerated, toward goal rate of 40ml/hr. Will continue to follow and reassess as pt needs, intake, and status change. Srinivasa Frnaks, MS RD LD [phone] cell
--- NOTE | 2020-03-29 15:51 | Diagnostic Imaging Report ---
INDICATION: Central line repositioning. TECHNIQUE: Single view chest 3:32 PM. CORRELATION STUDY: 03/29/2020 FINDINGS: The right upper extremity central line appears to have been repositioned. Whle the tip is somewhat indeterminate, it appears to be positioned over the SVC. Endotracheal tube projecting over the lower trachea, approximately 12 mm above the candice. Heart size and mediastinum are generally stable. Scattered pulmonary parenchymal densities appear unchanged. IMPRESSION: 1. Interval repositioning of the right upper extremity central line. Tip appears to be positioned over the expected location of the SVC. Dictated by: Dictated on workstation # [id number]
[2020-03-29] MEDS: REMDESIVIR INJ 100 MG in NS (IVPB) 230 ML IV SCH (16:49)
[2020-03-29] MEDS ORDERED: CEFEPIME 1,000 MG/SWFI 10 ML IV PUSH IV SCH ×2 (18:00)
[2020-03-29 18:50] VITALS: BP 149/85
[2020-03-29] MEDS: MICONAZOLE NITRATE 2% CRM 30 GM TP SCH (20:21)
--- NOTE | 2020-03-29 20:22 | NUR ---
unable to adm. Miconazole to pt panus d/t prone positioning
--- NOTE | 2020-03-29 20:34 | NUR ---
RECTAL THERMOMETER PLACED @ 2030 D/T AXILLARY TEMP READING 93.4 AND 92.6
--- NOTE | 2020-03-29 20:35 | NUR ---
TEMP PER RECTAL THERMOMETER - 35.3
[2020-03-29 21:58] VITALS: BP 149/85
[2020-03-30] MEDS: PROPOFOL DRIP (ICU) 100 ML IV SCH ×7 (01:47→20:07)
[2020-03-30] MEDS: fentaNYL DRIP PRE-MIX 250 ML IV SCH ×4 (01:47→20:06)
[2020-03-30 02:13] LABS: ABG BASE EXCESS 2.3 MMOL/L (-2.5-2.5); ABG OXYGEN SATURATION 96 % (94-100); ABG PCO2 50 MMHG (35-45); ABG PH 7.35 (7.37-7.43); ABG PO2 87 MMHG (79-93); ABG TCO2 29.1 MMOL/L (21.0-31.0)
[2020-03-30 02:17] LABS: ALLENS TEST POSITIVE; INSPIRED O2 30; PATIENT TEMP 36.1; VENTILATOR YES
[2020-03-30 02:19] LABS: BASOPHILS % (AUTO) 0 % (0-10); EOSINOPHILS % (AUTO) 0 % (0-10); HEMATOCRIT 37 % (35-52); HEMOGLOBIN 11.1 g/dL (11.5-16.0); LYMPHOCYTES # (AUTO) 0.3 10^3/uL (1.0-4.0); LYMPHOCYTES % (AUTO) 8 % (12-44); MEAN CORPUSCULAR HEMOGLOBIN 28 pg (25-34); MEAN CORPUSCULAR HGB CONC 30 g/dL (32-36); MEAN CORPUSCULAR VOLUME 92 fL (80-99); MEAN PLATELET VOLUME 11.3 fL (9.0-12.2); MONOCYTES # (AUTO) 0.3 10^3/uL (0.0-1.0); MONOCYTES % (AUTO) 8 % (0-12); NEUTROPHILS # (AUTO) 3.4 10^3/uL (1.8-7.8); NEUTROPHILS % (AUTO) 84 % (42-75); PLATELET COUNT 215 10^3/uL (130-400); WHITE BLOOD COUNT 4.1 10^3/uL (4.3-11.0)
[2020-03-30 02:29] LABS: CHLORIDE 105 MMOL/L (98-107); POTASSIUM 4.5 MMOL/L (3.6-5.0); SODIUM 142 MMOL/L (135-145)
[2020-03-30 02:31] LABS: GLUCOSE 157 MG/DL (70-105)
[2020-03-30 02:32] LABS: CARBON DIOXIDE 24 MMOL/L (21-32)
[2020-03-30 02:35] LABS: CREATININE SERUM 0.74 MG/DL (0.60-1.30); GFR ESTIMATED > 60; PHOSPHORUS 4.4 MG/DL (2.3-4.7)
[2020-03-30 02:36] LABS: BUN/CREATININE RATIO 26
[2020-03-30 02:37] LABS: MAGNESIUM 1.7 MG/DL (1.6-2.4)
[2020-03-30 02:57] VITALS: BP 149/85
[2020-03-30] MEDS: RT-ALBUTEROL INHALER HFA (VENTOLIN HFA) 18 GM IH SCH ×6 (02:57→23:29)
[2020-03-30] MEDS: IPRATROPIUM INHALER (ATROVENT) 12.9 GM INH SCH ×6 (02:57→23:29)
[2020-03-30] MEDS ORDERED: MAGNESIUM 1 GM/100 ML IVPB 200 ML IV ONE (04:36)
[2020-03-30] MEDS: MAGNESIUM 1 GM/100 ML IVPB 100 ML IV SCH ×2 (05:35→05:38)
[2020-03-30] MEDS: LACTATED RINGERS 1,000 ML IV SCH ×2 (05:35→23:50)
[2020-03-30] MEDS: inSUlin ASPART (NovoLOG) 1 UNIT/0.01 ML (CHARGE PER UNIT) SC SCH ×4 (05:35→23:50)
[2020-03-30] MEDS: MEROPENEM 500 MG/SWFI 10 ML IV PUSH IV SCH ×8 (05:35→23:48)
[2020-03-30] MEDS: LEVOTHYROXINE 100 MCG (LEVOTHROID) TAB PO SCH (05:36)
[2020-03-30 07:14] VITALS: BP 104/52
--- NOTE | 2020-03-30 07:28 | Physical Therapy Progress Note ---
Therapy Progress Note Pt remains sedated and on the vent. Will continue to follow RANJANA ANDERSON PT Mar 30, 2020 07:28
[2020-03-30] MEDS: PANTOPRAZOLE 40 MG (PROTONIX) VIAL IV SCH (07:58)
[2020-03-30] MEDS: ENOXAPARIN 60 MG/0.6 ML (LOVENOX) SYR SC SCH ×2 (07:58→20:05)
[2020-03-30] MEDS: FLUCONAZOLE 100 MG/50 ML IVPB IV SCH ×2 (07:59)
[2020-03-30] MEDS: MICONAZOLE NITRATE 2% CRM 30 GM TP SCH ×2 (07:59→20:08)
--- NOTE | 2020-03-30 08:10 | Progress Note - Hospitalist ---
Subjective HPI/CC On Admission Date Seen by Provider: Mar 30, 2020 Time Seen by Provider: 08:06 Subjective/Events-last exam Pt remains intubated and sedated. 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 Doing better with oxygenation. Focused Exam Lactate Level 03/27/20 12:00: Lactic Acid Level 0.78 Objective Exam Vital Signs Vital Signs Date Time Temp Pulse Resp B/P (MAP) Pulse Ox O2 Delivery O2 Flow Rate FiO2 03/30/20 07:28 35.8 03/30/20 07:14 66 24 96 35 03/30/20 06:00 101/51 Mechanical Ventilator 35.00 Capillary Refill : Less Than 3 Seconds General Appearance: Obese, Other (intubated and sedated) Respiratory: Decreased Breath Sounds, Other (on vent) Cardiovascular: Regular Rate, Rhythm, No Murmur Gastrointestinal: Normal Bowel Sounds, Non Tender, Soft Genital/Rectal: Other (schuster in place) Extremity: No Pedal Edema Neurologic/Psychiatric: Other (sedated, appears comfortable) Results/Procedures Lab Laboratory Tests 03/30/20 02:05 Patient resulted labs reviewed. Assessment/Plan Assessment and Plan Assess & Plan/Chief Complaint Acute respiratory failure secondary to COVID -19 with PNA with ARDS -Intubated 03/27 -Continue Remdesivir and decadron - s/pCVP -LR at 30cc/hr -Responded well to lasix with diuresis, BNP only 25 so will hold further dos es for now -Will not prone pt secondary to morbid obesity 175.6kg UTI -Merrem per sensitivities Morbid obesity Debility GI/DVT ppx -Lovenox ppx Clinical Quality Measures DVT/VTE Risk/Contraindication: Risk Factor Score Per Nursin RFS Level Per Nursing on Admit: 4+=Very High RHONDA PIERCE MD Mar 30, 2020 08:10
[2020-03-30] MEDS ORDERED: NON-FORMULARY MEDICATION 1 EA EA (Levothyroxine Sodium 200 MCG) PO SCH (09:00)
--- NOTE | 2020-03-30 10:55 | Diagnostic Imaging Report ---
INDICATION: Follow-up, on a ventilator, COVID positive EXAMINATION: Chest from 03/30/2020 COMPARISON: 03/29/2020 FINDINGS: The heart is prominent. Pulmonary vasculature is congested. There are increased interstitial changes throughout both lungs with airspace opacities bilaterally consistent with infiltrates. No effusions or pneumothorax. ET tube stable. There is a feeding tube with its tip not well seen. Right PICC line tip difficult to visualize as well likely in the distal SVC. IMPRESSION: 1. Worsening appearance of the lungs with increasing bilateral infiltrates and edema suspected. Dictated by: Dictated on workstation # [id number]
[2020-03-30 10:58] VITALS: BP 116/57
[2020-03-30] MEDS: REMDESIVIR INJ 100 MG in NS (IVPB) 230 ML IV SCH (15:12)
[2020-03-30 15:33] VITALS: BP 143/73
[2020-03-30 19:00] VITALS: BP 129/73
[2020-03-31] MEDS: fentaNYL DRIP PRE-MIX 250 ML IV SCH ×5 (00:53→22:48)
[2020-03-31] MEDS: PROPOFOL DRIP (ICU) 100 ML IV SCH ×5 (00:54→20:13)
[2020-03-31] MEDS: IPRATROPIUM INHALER (ATROVENT) 12.9 GM INH SCH ×6 (02:18→21:41)
[2020-03-31] MEDS: RT-ALBUTEROL INHALER HFA (VENTOLIN HFA) 18 GM IH SCH ×6 (02:18→21:41)
[2020-03-31 02:20] VITALS: BP 128/70
[2020-03-31 02:45] LABS: BASOPHILS % (AUTO) 0 % (0-10); EOSINOPHILS % (AUTO) 0 % (0-10); HEMATOCRIT 35 % (35-52); HEMOGLOBIN 10.6 g/dL (11.5-16.0); LYMPHOCYTES # (AUTO) 0.5 10^3/uL (1.0-4.0); LYMPHOCYTES % (AUTO) 11 % (12-44); MEAN CORPUSCULAR HEMOGLOBIN 28 pg (25-34); MEAN CORPUSCULAR HGB CONC 30 g/dL (32-36); MEAN CORPUSCULAR VOLUME 93 fL (80-99); MEAN PLATELET VOLUME 11.2 fL (9.0-12.2); MONOCYTES # (AUTO) 0.4 10^3/uL (0.0-1.0); MONOCYTES % (AUTO) 9 % (0-12); NEUTROPHILS # (AUTO) 3.4 10^3/uL (1.8-7.8); NEUTROPHILS % (AUTO) 79 % (42-75); PLATELET COUNT 226 10^3/uL (130-400); WHITE BLOOD COUNT 4.3 10^3/uL (4.3-11.0)
[2020-03-31 02:47] LABS: ABG BASE EXCESS 2.4 MMOL/L (-2.5-2.5); ABG OXYGEN SATURATION 95 % (94-100); ABG PCO2 51 MMHG (35-45); ABG PH 7.35 (7.37-7.43); ABG PO2 78 MMHG (79-93); ABG TCO2 29.3 MMOL/L (21.0-31.0); INSPIRED O2 40; PATIENT TEMP 36.2; VENTILATOR YES
[2020-03-31 02:56] LABS: CHLORIDE 104 MMOL/L (98-107); POTASSIUM 4.6 MMOL/L (3.6-5.0); SODIUM 142 MMOL/L (135-145)
[2020-03-31 02:58] LABS: GLUCOSE 150 MG/DL (70-105); TRIGLYCERIDES 241 MG/DL (<150)
[2020-03-31 03:00] LABS: CARBON DIOXIDE 26 MMOL/L (21-32)
[2020-03-31 03:02] LABS: CREATININE SERUM 0.72 MG/DL (0.60-1.30); GFR ESTIMATED > 60; PHOSPHORUS 3.4 MG/DL (2.3-4.7)
[2020-03-31 03:03] LABS: BUN/CREATININE RATIO 26
[2020-03-31 03:04] LABS: MAGNESIUM 2.1 MG/DL (1.6-2.4)
[2020-03-31] MEDS: MEROPENEM 500 MG/SWFI 10 ML IV PUSH IV SCH ×8 (06:10→23:58)
[2020-03-31] MEDS: inSUlin ASPART (NovoLOG) 1 UNIT/0.01 ML (CHARGE PER UNIT) SC SCH ×4 (06:10→23:45)
[2020-03-31] MEDS: LEVOTHYROXINE 100 MCG (LEVOTHROID) TAB PO SCH (06:10)
[2020-03-31 08:26] VITALS: BP 123/62
[2020-03-31] MEDS: ENOXAPARIN 60 MG/0.6 ML (LOVENOX) SYR SC SCH ×2 (08:37→20:12)
[2020-03-31] MEDS: PANTOPRAZOLE 40 MG (PROTONIX) VIAL IV SCH (08:37)
[2020-03-31] MEDS: MICONAZOLE NITRATE 2% CRM 30 GM TP SCH ×2 (08:38→21:12)
--- NOTE | 2020-03-31 09:31 | Progress Note - Hospitalist ---
Subjective HPI/CC On Admission Date Seen by Provider: Mar 31, 2020 Time Seen by Provider: 09:24 Subjective/Events-last exam Pt remains on the vent. No ROS possible. Coming down on PEEP and FiO2. Objective Exam Vital Signs Vital Signs Date Time Temp Pulse Resp B/P (MAP) Pulse Ox O2 Delivery O2 Flow Rate FiO2 03/31/20 08:26 58 24 93 45 03/31/20 06:23 134/67 03/31/20 06:00 36.1 Mechanical Ventilator 40.00 Capillary Refill : Less Than 3 Seconds General Appearance: Obese, Other (sedated, on vent) Respiratory: Decreased Breath Sounds ( ), Rhonci; No Wheezing; Other (on vent) Cardiovascular: Regular Rate, Rhythm, No Murmur Gastrointestinal: Normal Bowel Sounds, Non Tender, Soft Neurologic/Psychiatric: Alert, Oriented x3 Results/Procedures Lab Laboratory Tests 03/31/20 02:30 Patient resulted labs reviewed. Assessment/Plan Assessment and Plan Assess & Plan/Chief Complaint Acute respiratory failure secondary to COVID -19 with PNA with ARDS - Intubated 03/27 - Continue Remdesivir and decadron - s/p CVP - Will not prone pt secondary to morbid obesity 175.6kg - TeleICU consulted, appreciate recs - Seems to be improving slightly, hopeful to be able to wean in the next 1-2 days if she continues at this pace UTI -Merrem per sensitivities Morbid obesity Debility GI/DVT ppx -Lovenox ppx Clinical Quality Measures DVT/VTE Risk/Contraindication: Risk Factor Score Per Nursin RFS Level Per Nursing on Admit: 4+=Very High RHONDA PIERCE MD Mar 31, 2020 09:31
--- NOTE | 2020-03-31 09:44 | Diagnostic Imaging Report ---
CHEST 1 VIEW, AP/PA ONLY Indication: Dyspnea Comparison: 03/30/2020 Findings: Stable ET tube with tip approximately 1.5 cm above the candice. Stable ET tube. Stable right PICC. Allowing for differences in technique, stable slight improvement in the bilateral diffuse pulmonary opacities. No pleural effusion or pneumothorax. Stable cardiomediastinal silhouette. Impression: 1. ET tube is in similar position with tip approximately 1.5 cm above the candice. 2. Stable to slight improvement in diffuse bilateral pulmonary opacities. Dictated by: Dictated on workstation # [id number]
[2020-03-31 10:46] VITALS: BP 124/72
[2020-03-31] MEDS: FLUCONAZOLE 100 MG/50 ML IVPB IV SCH ×2 (11:29)
[2020-03-31 15:43] VITALS: BP 128/72
[2020-03-31] MEDS: REMDESIVIR INJ 100 MG in NS (IVPB) 230 ML IV SCH (17:28)
[2020-03-31 19:55] VITALS: BP 126/75
[2020-03-31 21:42] VITALS: BP 125/72
[2020-04-01] VITALS (11 sets, daily range): BP systolic 119–139; BP diastolic 67–74
[2020-04-01] MEDS: PROPOFOL DRIP (ICU) 100 ML IV SCH ×8 (00:42→22:02)
[2020-04-01] MEDS: IPRATROPIUM INHALER (ATROVENT) 12.9 GM INH SCH ×6 (02:03→21:44)
[2020-04-01] MEDS: RT-ALBUTEROL INHALER HFA (VENTOLIN HFA) 18 GM IH SCH ×6 (02:03→21:44)
[2020-04-01] MEDS: fentaNYL DRIP PRE-MIX 250 ML IV SCH ×5 (03:48→22:04)
[2020-04-01 03:55] LABS: BASOPHILS % (AUTO) 0 % (0-10); EOSINOPHILS % (AUTO) 1 % (0-10); HEMATOCRIT 35 % (35-52); HEMOGLOBIN 10.8 g/dL (11.5-16.0); LYMPHOCYTES # (AUTO) 0.7 10^3/uL (1.0-4.0); LYMPHOCYTES % (AUTO) 17 % (12-44); MEAN CORPUSCULAR HEMOGLOBIN 29 pg (25-34); MEAN CORPUSCULAR HGB CONC 31 g/dL (32-36); MEAN CORPUSCULAR VOLUME 93 fL (80-99); MEAN PLATELET VOLUME 11.9 fL (9.0-12.2); MONOCYTES # (AUTO) 0.4 10^3/uL (0.0-1.0); MONOCYTES % (AUTO) 10 % (0-12); NEUTROPHILS % (AUTO) 70 % (42-75); PLATELET COUNT 222 10^3/uL (130-400); WHITE BLOOD COUNT 4.3 10^3/uL (4.3-11.0)
[2020-04-01 04:09] LABS: ABG BASE EXCESS 1.3 MMOL/L (-2.5-2.5); ABG OXYGEN SATURATION 99 % (94-100); ABG PCO2 52 MMHG (35-45); ABG PH 7.33 (7.37-7.43); ABG PO2 118 MMHG (79-93); ABG TCO2 28.4 MMOL/L (21.0-31.0)
[2020-04-01 04:09] LABS: CHLORIDE 103 MMOL/L (98-107); POTASSIUM 3.6 MMOL/L (3.6-5.0); SODIUM 139 MMOL/L (135-145)
[2020-04-01 04:10] LABS: ALLENS TEST POSITIVE; INSPIRED O2 45; PATIENT TEMP 36.4; VENTILATOR YES
[2020-04-01 04:10] LABS: CALCIUM 7.8 MG/DL (8.5-10.1)
[2020-04-01 04:11] LABS: GLUCOSE 107 MG/DL (70-105)
[2020-04-01 04:12] LABS: CARBON DIOXIDE 22 MMOL/L (21-32)
[2020-04-01 04:15] LABS: CREATININE SERUM 0.65 MG/DL (0.60-1.30); GFR ESTIMATED > 60; PHOSPHORUS 2.5 MG/DL (2.3-4.7)
[2020-04-01 04:16] LABS: BUN/CREATININE RATIO 26
[2020-04-01 04:17] LABS: MAGNESIUM 1.7 MG/DL (1.6-2.4)
[2020-04-01] MEDS: KCL 20 MEQ TAB (K-DUR) PO SCH (04:22)
[2020-04-01] MEDS: POTASSIUM CL 10MEQ/50ML IVPB 50 ML IV SCH ×3 (04:22→05:16)
[2020-04-01] MEDS: inSUlin ASPART (NovoLOG) 1 UNIT/0.01 ML (CHARGE PER UNIT) SC SCH ×4 (04:22→23:27)
[2020-04-01] MEDS: MAGNESIUM 1 GM/100 ML IVPB 100 ML IV SCH ×3 (04:22→05:16)
--- NOTE | 2020-04-01 04:36 | Pulmonary Progress Note ---
Subjective Time Seen by a Provider: 04:33 Sepsis Event Evaluation Height, Weight, BMI Height: '" Weight: lbs. oz. kg; 67.00 BMI Method: Exam Exam Vital Signs Date Time Temp Pulse Resp B/P (MAP) Pulse Ox O2 Delivery O2 Flow Rate FiO2 04/01/20 04:16 Mechanical Ventilator 60.00 04/01/20 03:34 36.4 04/01/20 02:03 61 24 91 50 04/01/20 00:42 132/77 04/01/20 00:42 132/77 03/31/20 23:00 36.4 61 24 127/74 91 Mechanical Ventilator 55.00 03/31/20 22:00 36.4 61 23 123/73 92 Mechanical Ventilator 55.00 03/31/20 21:42 60 24 92 55 03/31/20 21:12 93 Mechanical Ventilator 55 03/31/20 21:00 36.4 61 24 123/73 93 Mechanical Ventilator 55.00 03/31/20 20:18 36.4 61 24 132/76 93 Mechanical Ventilator 55.00 03/31/20 20:13 126/75 03/31/20 20:13 126/75 03/31/20 19:55 61 24 92 55 03/31/20 19:00 36.4 50 22 126/78 88 Mechanical Ventilator 55.00 03/31/20 19:00 50 03/31/20 18:00 36.4 59 23 126/73 94 Mechanical Ventilator 55.00 03/31/20 17:00 36.4 52 23 124/72 94 Mechanical Ventilator 55.00 03/31/20 16:00 36.4 61 24 127/72 93 Mechanical Ventilator 55.00 03/31/20 15:43 61 24 93 55 03/31/20 15:11 64 141/84 03/31/20 15:11 64 141/84 03/31/20 15:00 36.5 64 24 141/84 93 Mechanical Ventilator 40.00 03/31/20 14:00 36.5 54 23 125/72 94 Mechanical Ventilator 40.00 03/31/20 13:00 36.5 53 23 122/69 94 Mechanical Ventilator 40.00 03/31/20 12:37 62 03/31/20 12:00 36.5 57 23 123/70 91 Mechanical Ventilator 40.00 03/31/20 11:28 78 122/73 03/31/20 11:28 78 122/73 03/31/20 11:00 36.6 78 23 122/73 91 Mechanical Ventilator 40.00 03/31/20 10:46 66 24 90 45 03/31/20 10:00 36.5 52 24 105/53 93 Mechanical Ventilator 40.00 03/31/20 09:30 36.5 53 23 104/53 93 Mechanical Ventilator 40.00 03/31/20 09:29 93 Mechanical Ventilator 45 03/31/20 09:15 36.5 52 23 104/54 93 Mechanical Ventilator 40.00 03/31/20 09:00 36.5 52 23 101/51 93 Mechanical Ventilator 40.00 03/31/20 08:45 36.4 60 23 114/59 92 Mechanical Ventilator 40.00 03/31/20 08:30 36.4 60 23 123/62 92 Mechanical Ventilator 40.00 03/31/20 08:26 58 24 93 45 03/31/20 08:15 36.4 51 24 107/56 93 Mechanical Ventilator 40.00 03/31/20 08:00 36.3 52 23 109/55 92 Mechanical Ventilator 40.00 03/31/20 07:45 36.3 51 23 108/56 92 Mechanical Ventilator 40.00 03/31/20 07:30 36.3 52 23 112/55 93 Mechanical Ventilator 40.00 03/31/20 07:15 36.3 52 24 108/54 93 Mechanical Ventilator 40.00 03/31/20 07:00 55 03/31/20 07:00 36.3 52 23 113/56 93 Mechanical Ventilator 40.00 03/31/20 06:23 58 134/67 03/31/20 06:23 58 134/67 03/31/20 06:00 36.1 52 23 117/58 92 Mechanical Ventilator 40.00 03/31/20 05:00 36.1 53 24 122/61 92 Mechanical Ventilator 40.00 I & O 04/01/20 07:00 Intake Total 1200 ml Output Total 730 ml Balance 470 ml Height & Weight Height: '" Weight: lbs. oz. kg; 67.00 BMI Method: General Appearance: Obese, Other (sedated, on vent) Neck: Full Range of Motion Respiratory: Decreased Breath Sounds ( ), Rhonci; No Wheezing; Other (on vent) Cardiovascular: Regular Rate, Rhythm, No Murmur Capillary Refill: Less Than 3 Seconds Extremity: No Pedal Edema Neurologic/Psychiatric: Alert, Oriented x3 Results Lab Laboratory Tests 03/31/20 02:30 04/01/20 03:35 Assessment/Plan Assessment/Plan Acute respiratory failure secondary to COVID -19 with PNA with ARDS -Intubated 03/27 -s/p Remdesivir, CVP PEEP to 10 currently -Decadron -Change IVF to LR and decrease to 30cc/hr -Give 40mg of Lasix x 1 -Check BNP, PCT, and Ddimer -Continue to Prone -LR currently at 30cc/hr -Repeat PCT, DDImer, and BNP UTI -Currently on Merrem and Diflucan -Improving leukocytosis Morbid obesity Debility GI/DVT ppx -Lovenox ppx WINIFRED LEON DO Apr 01, 2020 04:36
[2020-04-01] MEDS: MEROPENEM 500 MG/SWFI 10 ML IV PUSH IV SCH ×8 (05:01→23:27)
[2020-04-01] MEDS: LACTATED RINGERS 1,000 ML IV SCH (05:15)
[2020-04-01] MEDS: LEVOTHYROXINE 100 MCG (LEVOTHROID) TAB PO SCH (06:46)
--- NOTE | 2020-04-01 07:34 | Diagnostic Imaging Report ---
INDICATION: Followup COVID pneumonia. COMPARISON: 03/31/2020 FINDINGS: Single frontal radiographic view of the chest was obtained and demonstrates indwelling endotracheal tube with tip at the lower level of the clavicular heads. Gastric tube is also seen and appears to terminate within the lower esophagus. Right upper extremity PICC line is present with tip likely in the SVC. Lungs continue to show diffuse bilateral patchy and confluent infiltrates. Overall, aeration is not safely changed. Cardiac silhouette is heavily obscured. There is no large effusion or pneumothorax. Osseous structures are unchanged. IMPRESSION: 1. Stable exam of the chest showing diffuse bilateral infiltrates. 2. Lines and tubes as above. Dictated by: Dictated on workstation # [id number]
[2020-04-01] MEDS: METOCLOPRAMIDE INJ 10 MG/2 ML (REGLAN) IVP SCH ×2 (08:23→19:46)
[2020-04-01] MEDS: FLUCONAZOLE 100 MG/50 ML IVPB IV SCH ×2 (08:23)
[2020-04-01] MEDS: ENOXAPARIN 60 MG/0.6 ML (LOVENOX) SYR SC SCH ×2 (08:23→19:46)
[2020-04-01] MEDS: PANTOPRAZOLE 40 MG (PROTONIX) VIAL IV SCH (08:23)
[2020-04-01] MEDS: MICONAZOLE NITRATE 2% CRM 30 GM TP SCH ×2 (08:24→19:46)
--- NOTE | 2020-04-01 09:55 | NUR ---
OK TO D/C PRONING PER DR LEON.
--- NOTE | 2020-04-01 12:01 | Physical Therapy Progress Note ---
Therapy Progress Note PROM B U/LE in available planes. RANJANA ANDERSON PT Apr 01, 2020 12:01
--- NOTE | 2020-04-01 15:47 | NUR ---
Note pt had issues with vomiting over the weekend, per Muna RN. Note kangaroo pump tubing shortage, and note pt is getting 60ml bolus TF throughout the day, per Muna. Would recommend continuation of bolus feeds until tubing is available. Would recommend flushing with 60ml free water before and after each bolus. Will continue to follow and reassess as pt needs, intake, and status change. Srinivasa Franks, MS RD LD [phone] cell
[2020-04-02 01:58] VITALS: BP 129/68
[2020-04-02] MEDS: IPRATROPIUM INHALER (ATROVENT) 12.9 GM INH SCH ×6 (01:58→21:17)
[2020-04-02] MEDS: RT-ALBUTEROL INHALER HFA (VENTOLIN HFA) 18 GM IH SCH ×6 (01:58→21:17)
[2020-04-02] MEDS: PROPOFOL DRIP (ICU) 100 ML IV SCH ×8 (02:30→20:27)
[2020-04-02 02:41] LABS: ABG OXYGEN SATURATION 95 % (94-100); ABG PCO2 45 MMHG (35-45); ABG PH 7.42 (7.37-7.43); ABG PO2 76 MMHG (79-93); ABG TCO2 29.7 MMOL/L (21.0-31.0); BASOPHILS % (AUTO) 0 % (0-10); EOSINOPHILS % (AUTO) 1 % (0-10); HEMATOCRIT 31 % (35-52); LYMPHOCYTES # (AUTO) 0.4 10^3/uL (1.0-4.0); LYMPHOCYTES % (AUTO) 12 % (12-44); MEAN CORPUSCULAR HEMOGLOBIN 30 pg (25-34); MEAN CORPUSCULAR HGB CONC 32 g/dL (32-36); MEAN CORPUSCULAR VOLUME 92 fL (80-99); MEAN PLATELET VOLUME 11.7 fL (9.0-12.2); MONOCYTES # (AUTO) 0.3 10^3/uL (0.0-1.0); MONOCYTES % (AUTO) 10 % (0-12); NEUTROPHILS # (AUTO) 2.5 10^3/uL (1.8-7.8); NEUTROPHILS % (AUTO) 76 % (42-75); PLATELET COUNT 210 10^3/uL (130-400); WHITE BLOOD COUNT 3.2 10^3/uL (4.3-11.0)
[2020-04-02 02:42] LABS: ALLENS TEST YES-POS; INSPIRED O2 70%; PATIENT TEMP 36.7; VENTILATOR YES
[2020-04-02 02:55] LABS: CHLORIDE 101 MMOL/L (98-107); POTASSIUM 4.2 MMOL/L (3.6-5.0); SODIUM 142 MMOL/L (135-145)
[2020-04-02 02:57] LABS: GLUCOSE 141 MG/DL (70-105)
[2020-04-02 02:58] LABS: CARBON DIOXIDE 21 MMOL/L (21-32)
[2020-04-02 03:01] LABS: CREATININE SERUM 0.55 MG/DL (0.60-1.30); GFR ESTIMATED > 60; PHOSPHORUS 2.7 MG/DL (2.3-4.7)
[2020-04-02 03:02] LABS: BUN/CREATININE RATIO 20
[2020-04-02] MEDS: fentaNYL DRIP PRE-MIX 250 ML IV SCH ×5 (03:02→22:29)
[2020-04-02] MEDS ORDERED: FUROSEMIDE 40 MG/4 ML INJ (LASIX) ONE (04:40)
--- NOTE | 2020-04-02 04:42 | Pulmonary Progress Note ---
Subjective Time Seen by a Provider: 04:38 Subjective/Events-last exam Pt is sedated on vent. Sepsis Event Evaluation Height, Weight, BMI Height: '" Weight: lbs. oz. kg; 67.00 BMI Method: Exam Exam Vital Signs Date Time Temp Pulse Resp B/P (MAP) Pulse Ox O2 Delivery O2 Flow Rate FiO2 04/02/20 02:31 127/65 04/02/20 02:30 51 04/02/20 01:58 51 24 87 55 04/01/20 22:02 134/68 04/01/20 22:02 134/68 04/01/20 21:59 54 24 92 55 04/01/20 21:45 54 24 92 55 04/01/20 20:49 90 Mechanical Ventilator 60 04/01/20 19:40 37.0 54 24 130/65 90 Mechanical Ventilator 55.00 04/01/20 19:00 56 04/01/20 18:34 54 24 92 50 04/01/20 18:33 54 24 92 50 04/01/20 18:00 55 135/69 91 Mechanical Ventilator 50.00 04/01/20 17:23 54 139/70 04/01/20 17:23 54 139/70 04/01/20 17:00 55 24 126/64 91 Mechanical Ventilator 50.00 04/01/20 16:00 53 24 138/71 90 Mechanical Ventilator 50.00 04/01/20 15:29 36.2 Mechanical Ventilator 50.00 04/01/20 15:00 54 23 138/71 91 Mechanical Ventilator 50.00 04/01/20 14:21 54 24 92 50 04/01/20 14:20 54 24 92 50 04/01/20 14:00 53 24 136/71 91 Mechanical Ventilator 50.00 04/01/20 13:26 53 137/73 04/01/20 13:26 53 137/73 04/01/20 13:25 Mechanical Ventilator 50.00 04/01/20 13:00 55 37 137/71 91 Mechanical Ventilator 40.00 04/01/20 12:31 56 04/01/20 12:00 53 137/73 90 Mechanical Ventilator 40.00 04/01/20 11:53 36.7 04/01/20 11:00 61 17 136/69 92 Mechanical Ventilator 40.00 04/01/20 10:32 61 24 92 40 04/01/20 10:31 61 24 92 40 04/01/20 10:00 62 24 125/68 92 Mechanical Ventilator 40.00 04/01/20 09:20 63 119/67 04/01/20 09:19 63 119/67 04/01/20 09:09 Mechanical Ventilator 40.00 04/01/20 09:00 66 24 100/57 96 Mechanical Ventilator 50.00 04/01/20 09:00 95 Mechanical Ventilator 50 04/01/20 08:22 35.9 Mechanical Ventilator 50.00 04/01/20 08:00 56 23 116/66 96 Mechanical Ventilator 60.00 04/01/20 07:00 61 24 118/74 94 Mechanical Ventilator 60.00 04/01/20 06:41 63 04/01/20 06:19 63 24 95 50 04/01/20 06:18 63 24 95 50 04/01/20 06:00 62 24 115/68 95 Mechanical Ventilator 60.00 04/01/20 05:16 63 04/01/20 05:15 63 04/01/20 05:00 63 24 128/72 94 Mechanical Ventilator 60.00 I & O 04/02/20 07:00 Intake Total 2280 ml Output Total 3325 ml Balance -1045 ml Height & Weight Height: '" Weight: lbs. oz. kg; 67.00 BMI Method: General Appearance: Obese, Other (sedated, on vent) Neck: Full Range of Motion Respiratory: Decreased Breath Sounds ( ), Rhonci; No Wheezing; Other (on vent) Cardiovascular: Regular Rate, Rhythm, No Murmur Capillary Refill: Less Than 3 Seconds Extremity: No Pedal Edema Neurologic/Psychiatric: Alert, Oriented x3 Results Lab Laboratory Tests 04/01/20 03:35 04/02/20 02:20 Assessment/Plan Assessment/Plan Acute respiratory failure secondary to COVID -19 with PNA with ARDS -Intubated 03/27 -s/p Remdesivir, CVP -Continue TF PEEP to 10 currently -Decadron -Change IVF to LR and decrease to 30cc/hr -Give 40mg of Lasix x 1 -Check BNP, PCT, and Ddimer -LR currently at 30cc/hr -Repeat PCT, DDImer, and BNP UTI -Currently on Merrem and Diflucan -Improving leukocytosis Morbid obesity Debility GI/DVT ppx -Lovenox ppx WINIFRED LEON DO Apr 02, 2020 04:42
[2020-04-02] MEDS: MAGNESIUM 1 GM/100 ML IVPB 100 ML IV SCH (04:44)
[2020-04-02] MEDS: POTASSIUM CL 10MEQ/50ML IVPB 50 ML IV SCH (04:44)
[2020-04-02] MEDS ORDERED: FUROSEMIDE 40 MG/4 ML INJ (LASIX) IVP ONE (04:45)
[2020-04-02] MEDS: KCL 20 MEQ TAB (K-DUR) PO SCH (04:45)
[2020-04-02] MEDS: inSUlin ASPART (NovoLOG) 1 UNIT/0.01 ML (CHARGE PER UNIT) SC SCH ×3 (04:45→17:54)
[2020-04-02] MEDS: MEROPENEM 500 MG/SWFI 10 ML IV PUSH IV SCH ×6 (05:06→17:54)
[2020-04-02] MEDS: LACTATED RINGERS 1,000 ML IV SCH ×2 (05:07→11:31)
[2020-04-02] MEDS: LEVOTHYROXINE 100 MCG (LEVOTHROID) TAB PO SCH (05:07)
[2020-04-02 06:29] VITALS: BP 123/68
[2020-04-02] MEDS: FLUCONAZOLE 100 MG/50 ML IVPB IV SCH ×2 (08:29)
[2020-04-02] MEDS: ENOXAPARIN 60 MG/0.6 ML (LOVENOX) SYR SC SCH ×2 (08:30→20:24)
[2020-04-02] MEDS: PANTOPRAZOLE 40 MG (PROTONIX) VIAL IV SCH (08:30)
[2020-04-02] MEDS: METOCLOPRAMIDE INJ 10 MG/2 ML (REGLAN) IVP SCH ×2 (08:35→20:24)
[2020-04-02] MEDS: MICONAZOLE NITRATE 2% CRM 30 GM TP SCH ×2 (08:35→20:28)
[2020-04-02 11:24] VITALS: BP 159/80
[2020-04-02 14:24] VITALS: BP 157/78
--- NOTE | 2020-04-02 14:30 | NUR ---
Placed phone call to Sister Adela. Update given and questions answered. Sister has no further questions or concerns at this time.
--- NOTE | 2020-04-02 15:14 | NUR ---
Note pt is currently receiving Pulmocare via bolus feeds of 60ml q4h with 30ml free water flushes before and after bolus. Wen SIMPSON states pt is tolerating well. Would recommend continuing bolus feeds at this time. Will continue to follow and reassess as pt needs, intake, and status change. Addy ZELAYA, MS RD LD [phone] CELL
[2020-04-02 18:42] VITALS: BP 130/74
[2020-04-02 21:18] VITALS: BP 130/76
[2020-04-03] MEDS: MEROPENEM 500 MG/SWFI 10 ML IV PUSH IV SCH ×8 (00:18→18:04)
[2020-04-03] MEDS: inSUlin ASPART (NovoLOG) 1 UNIT/0.01 ML (CHARGE PER UNIT) SC SCH ×4 (00:26→18:07)
[2020-04-03] MEDS: PROPOFOL DRIP (ICU) 100 ML IV SCH ×9 (01:21→23:43)
[2020-04-03] MEDS: IPRATROPIUM INHALER (ATROVENT) 12.9 GM INH SCH ×6 (02:08→21:42)
[2020-04-03] MEDS: RT-ALBUTEROL INHALER HFA (VENTOLIN HFA) 18 GM IH SCH ×6 (02:08→21:42)
[2020-04-03 02:09] VITALS: BP 138/73
[2020-04-03 03:30] LABS: ABG BASE EXCESS 7.8 MMOL/L (-2.5-2.5); ABG OXYGEN SATURATION 91 % (94-100); ABG PCO2 49 MMHG (35-45); ABG PH 7.43 (7.37-7.43); ABG PO2 62 MMHG (79-93); ABG TCO2 33.9 MMOL/L (21.0-31.0); BASOPHILS % (AUTO) 0 % (0-10); EOSINOPHILS % (AUTO) 0 % (0-10); HEMATOCRIT 36 % (35-52); HEMOGLOBIN 10.9 g/dL (11.5-16.0); LYMPHOCYTES # (AUTO) 0.5 10^3/uL (1.0-4.0); LYMPHOCYTES % (AUTO) 10 % (12-44); MEAN CORPUSCULAR HEMOGLOBIN 28 pg (25-34); MEAN CORPUSCULAR HGB CONC 30 g/dL (32-36); MEAN CORPUSCULAR VOLUME 92 fL (80-99); MEAN PLATELET VOLUME 11.2 fL (9.0-12.2); MONOCYTES # (AUTO) 0.4 10^3/uL (0.0-1.0); MONOCYTES % (AUTO) 9 % (0-12); NEUTROPHILS # (AUTO) 3.8 10^3/uL (1.8-7.8); NEUTROPHILS % (AUTO) 79 % (42-75); PLATELET COUNT 296 10^3/uL (130-400); WHITE BLOOD COUNT 4.8 10^3/uL (4.3-11.0)
[2020-04-03 03:31] LABS: ALLENS TEST YES-POS; INSPIRED O2 60%; PATIENT TEMP 36.3; VENTILATOR YES
[2020-04-03] MEDS: fentaNYL DRIP PRE-MIX 250 ML IV SCH ×4 (03:33→23:40)
[2020-04-03 04:04] LABS: BUN/CREATININE RATIO 23; CARBON DIOXIDE 28 MMOL/L (21-32); CHLORIDE 103 MMOL/L (98-107); CREATININE SERUM 0.64 MG/DL (0.60-1.30); GFR ESTIMATED > 60; GLUCOSE 149 MG/DL (70-105); MAGNESIUM 2.1 MG/DL (1.6-2.4); PHOSPHORUS 3.9 MG/DL (2.3-4.7); POTASSIUM 4.3 MMOL/L (3.6-5.0); SODIUM 143 MMOL/L (135-145)
[2020-04-03] MEDS: MAGNESIUM 1 GM/100 ML IVPB 100 ML IV SCH (04:24)
[2020-04-03] MEDS: POTASSIUM CL 10MEQ/50ML IVPB 50 ML IV SCH ×5 (04:24→09:35)
[2020-04-03] MEDS: KCL 20 MEQ TAB (K-DUR) PO SCH (04:24)
--- NOTE | 2020-04-03 05:09 | Pulmonary Progress Note ---
Subjective Time Seen by a Provider: 05:06 Sepsis Event Evaluation Height, Weight, BMI Height: '" Weight: lbs. oz. kg; 67.00 BMI Method: Exam Exam Vital Signs Date Time Temp Pulse Resp B/P (MAP) Pulse Ox O2 Delivery O2 Flow Rate FiO2 04/03/20 02:09 68 24 99 70 04/03/20 01:21 72 04/03/20 01:21 73 04/03/20 01:00 Mechanical Ventilator 60.00 04/03/20 01:00 70 04/03/20 00:00 36.3 Mechanical Ventilator 70.00 04/02/20 21:18 80 24 97 70 04/02/20 20:39 95 Mechanical Ventilator 70 04/02/20 20:27 76 04/02/20 20:25 76 04/02/20 20:00 36.3 Mechanical Ventilator 70.00 04/02/20 19:00 87 04/02/20 18:42 71 24 99 70 04/02/20 18:00 36.4 23 23 133/76 (95) 98 Mechanical Ventilator 70.00 04/02/20 17:00 36.6 24 126/73 (90) 96 Mechanical Ventilator 70.00 04/02/20 16:00 36.6 150/72 (98) 92 Mechanical Ventilator 70.00 04/02/20 15:36 49 157/78 04/02/20 15:00 36.6 51 147/73 (97) 92 Mechanical Ventilator 70.00 04/02/20 14:24 49 24 92 70 04/02/20 14:00 36.5 152/74 (100) 92 Mechanical Ventilator 70.00 04/02/20 13:00 36.4 155/77 (103) 92 Mechanical Ventilator 70.00 04/02/20 12:46 52 04/02/20 12:00 36.4 156/78 (104) 91 Mechanical Ventilator 70.00 04/02/20 11:31 51 159/80 04/02/20 11:30 51 159/80 04/02/20 11:24 51 24 91 70 04/02/20 11:00 36.4 153/80 (104) 90 Mechanical Ventilator 70.00 04/02/20 10:00 36.4 156/78 (104) 89 Mechanical Ventilator 70.00 04/02/20 09:00 36.3 134/76 (95) 90 Mechanical Ventilator 70.00 04/02/20 09:00 95 Mechanical Ventilator 70 04/02/20 08:00 36.4 60 134/72 (92) 92 Mechanical Ventilator 70.00 04/02/20 07:20 120/66 04/02/20 07:20 48 04/02/20 07:00 36.4 49 120/64 (82) 88 Mechanical Ventilator 70.00 04/02/20 06:43 52 04/02/20 06:29 49 24 88 70 04/02/20 06:00 36.4 52 129/66 89 Mechanical Ventilator 70.00 I & O 04/03/20 07:00 Intake Total 1440 ml Output Total 4810 ml Balance -3370 ml Height & Weight Height: '" Weight: lbs. oz. kg; 67.00 BMI Method: General Appearance: Obese, Other (sedated, on vent) Neck: Full Range of Motion Respiratory: Decreased Breath Sounds ( ), Rhonci; No Wheezing; Other (on vent) Cardiovascular: Regular Rate, Rhythm, No Murmur Capillary Refill: Less Than 3 Seconds Extremity: No Pedal Edema Neurologic/Psychiatric: Alert, Oriented x3 Results Lab Laboratory Tests 04/02/20 02:20 04/03/20 03:05 Assessment/Plan Assessment/Plan Acute respiratory failure secondary to COVID -19 with PNA with ARDS -Intubated 03/27 -s/p Remdesivir, CVP -Continue TF PEEP to 10 currently -Decadron -Change IVF to LR and decrease to 30cc/hr -Give 40mg of Lasix x 1 -Check BNP, PCT, and Ddimer -LR currently at 30cc/hr UTI -Currently on Merrem and Diflucan -Improving leukocytosis Morbid obesity Debility GI/DVT ppx -Lovenox ppx WINIFRED LEON DO Apr 03, 2020 05:09
[2020-04-03] MEDS ORDERED: FUROSEMIDE 40 MG/4 ML INJ (LASIX) IVP ONE (05:15)
--- NOTE | 2020-04-03 06:49 | NUR ---
PT BED SCALE INOPERABLE. Addendum: 04/03/20 at 0649 by LY HOROWITZ RN Amended: Links added.
[2020-04-03 07:11] VITALS: BP 129/84
[2020-04-03] MEDS: PANTOPRAZOLE 40 MG (PROTONIX) VIAL IV SCH (08:30)
[2020-04-03] MEDS: METOCLOPRAMIDE INJ 10 MG/2 ML (REGLAN) IVP SCH ×2 (08:30→21:52)
[2020-04-03] MEDS: FLUCONAZOLE 100 MG/50 ML IVPB IV SCH ×2 (08:32)
[2020-04-03] MEDS: MICONAZOLE NITRATE 2% CRM 30 GM TP SCH ×2 (09:23→21:53)
[2020-04-03] MEDS: ENOXAPARIN 60 MG/0.6 ML (LOVENOX) SYR SC SCH ×2 (10:21→21:53)
[2020-04-03] MEDS: LEVOTHYROXINE 100 MCG (LEVOTHROID) TAB PO SCH (10:46)
[2020-04-03 11:40] VITALS: BP 141/80
--- NOTE | 2020-04-03 12:02 | Diagnostic Imaging Report ---
Indication: Intubated patient COMPARISON: 04/01/2020 FINDINGS: Single frontal radiograph view the chest was obtained demonstrates indwelling endotracheal tube with tip at the clavicular heads. Gastric tube is also seen with tip just above the hiatus. Right upper extremity PICC line is seen with tip in the SVC. Lungs continue to show diffuse bilateral infiltrates. Overall, aeration is stable. There is no new large effusion or pneumothorax. Cardiac silhouette is heavily obscured, but appears stable as well. IMPRESSION: 1. Stable bilateral diffuse infiltrates. 2. Lines and tubes as above. Dictated by: Dictated on workstation # [id number]
--- NOTE | 2020-04-03 12:59 | Physical Therapy Progress Note ---
Therapy Progress Note Pt is currently intubated and sedated, no skilled therapy services performed this date. RANJANA ANDERSON PT Apr 03, 2020 12:59
--- NOTE | 2020-04-03 14:20 | NUR ---
Report given to Anjana SIMPSON, Janny SIMPSON.
[2020-04-03 15:12] VITALS: BP 166/86
--- NOTE | 2020-04-03 15:27 | NUR ---
Note pt currently receiving Pulmocare via 60ml bolus feeds q4h, with 30ml water flushes before and after each bolus. Would recommend continuing current regimen at this time. Will continue to follow and reassess as pt needs, intake, and status change. Addy ZELAYA, MS RD LD [phone] CELL
--- NOTE | 2020-04-03 16:04 | Physical Therapy Progress Note ---
Therapy Progress Note PROM B U/LE all planes. RANJANA ANDERSON PT Apr 03, 2020 16:04
[2020-04-03 19:00] VITALS: BP 142/89
--- NOTE | 2020-04-03 20:37 | NUR ---
DR ROBBINS E-ICU NOTIFIED OF PATIENT'S CONTINUED BRADYCARDIA. RATES DECREASING TO 40'S AND SUSTAINING. REQUESTED POSSIBLE CHANGE IN SEDATION FROM PROPOFOL TO VERSED. NO NEW ORDERS RECEIVED AT THIS TIME. WILL CONTINUE TO CLOSELY MONITOR PATIENT.
[2020-04-03 21:42] VITALS: BP 142/89
[2020-04-03] MEDS: FAMOTIDINE 20MG/2ML IV (PEPCID) IV SCH (21:52)
[2020-04-03] MEDS: LACTATED RINGERS 1,000 ML IV SCH (21:53)
--- NOTE | 2020-04-03 22:11 | NUR ---
ADMINISTERED PULMOCARE 60 ML AND H20 60 ML. IMMEDIATELY FOLLOWING ADMINISTRATION TUBE FEED AND WATER WAS RUNNING OUT OF PATIENT'S MOUTH. THIS RN SUCTIONED ORAL AND ENDOTRACHEAL AT THIS TIME. Addendum: 04/03/20 at 2212 by LY HOROWITZ RN Amended: Links added.
[2020-04-04] MEDS: MEROPENEM 500 MG/SWFI 10 ML IV PUSH IV SCH ×10 (00:42→23:41)
[2020-04-04] MEDS: inSUlin ASPART (NovoLOG) 1 UNIT/0.01 ML (CHARGE PER UNIT) SC SCH ×5 (00:43→22:56)
[2020-04-04] MEDS: RT-ALBUTEROL INHALER HFA (VENTOLIN HFA) 18 GM IH SCH ×5 (01:34→21:15)
[2020-04-04] MEDS: IPRATROPIUM INHALER (ATROVENT) 12.9 GM INH SCH ×5 (01:34→21:15)
[2020-04-04 01:35] VITALS: BP 135/77
[2020-04-04] MEDS: PROPOFOL DRIP (ICU) 100 ML IV SCH ×7 (03:15→20:40)
[2020-04-04 03:34] LABS: ABG BASE EXCESS 7.3 MMOL/L (-2.5-2.5); ABG OXYGEN SATURATION 99 % (94-100); ABG PCO2 38 MMHG (35-45); ABG PH 7.51 (7.37-7.43); ABG PO2 116 MMHG (79-93)
[2020-04-04 03:59] LABS: ALLENS TEST POS; INSPIRED O2 45%; PATIENT TEMP 36.3; VENTILATOR YES
[2020-04-04] MEDS: fentaNYL DRIP PRE-MIX 250 ML IV SCH ×4 (04:55→19:54)
[2020-04-04] MEDS: LEVOTHYROXINE 100 MCG (LEVOTHROID) TAB PO SCH (05:26)
--- NOTE | 2020-04-04 06:06 | Pulmonary Progress Note ---
Subjective Time Seen by a Provider: 06:00 Subjective/Events-last exam Pt is sedated on vent. Sepsis Event Evaluation Height, Weight, BMI Height: '" Weight: lbs. oz. kg; 67.00 BMI Method: Exam Exam Vital Signs Date Time Temp Pulse Resp B/P (MAP) Pulse Ox O2 Delivery O2 Flow Rate FiO2 04/04/20 04:41 72 26 94 04/04/20 04:00 68 24 134/78 (96) 100 04/04/20 03:15 56 04/04/20 03:15 56 04/04/20 03:00 57 19 136/84 (101) 96 Mechanical Ventilator 45.00 04/04/20 02:00 58 23 130/76 (94) Mechanical Ventilator 45.00 04/04/20 02:00 36.3 Mechanical Ventilator 45.00 04/04/20 01:35 57 24 94 45 04/04/20 01:00 52 24 126/76 (93) 93 Mechanical Ventilator 45.00 04/04/20 00:46 36.3 Mechanical Ventilator 45.00 04/04/20 00:00 52 23 138/76 (96) Mechanical Ventilator 45.00 04/03/20 23:43 54 140/79 04/03/20 23:41 54 140/79 04/03/20 23:00 54 23 144/88 (106) 94 Mechanical Ventilator 45.00 04/03/20 22:00 53 23 127/75 (92) Mechanical Ventilator 45.00 04/03/20 21:55 36.3 Mechanical Ventilator 45.00 04/03/20 21:42 53 24 94 55 04/03/20 21:00 96 Mechanical Ventilator 55 04/03/20 21:00 55 24 140/80 (100) 94 Mechanical Ventilator 55.00 04/03/20 20:00 36.4 Mechanical Ventilator 55.00 04/03/20 20:00 56 24 142/80 (100) 94 Mechanical Ventilator 55.00 04/03/20 19:45 64 04/03/20 19:45 65 04/03/20 19:23 36.4 04/03/20 19:00 56 24 98 50 04/03/20 19:00 48 24 130/77 (94) 97 Mechanical Ventilator 55.00 04/03/20 18:40 Mechanical Ventilator 55.00 04/03/20 18:17 Mechanical Ventilator 65.00 04/03/20 18:00 36.3 46 24 149/81 (103) 97 Mechanical Ventilator 75.00 04/03/20 17:00 36.3 49 24 158/86 (110) 100 Mechanical Ventilator 75.00 04/03/20 16:00 36.4 50 13 156/84 (108) 97 Mechanical Ventilator 75.00 04/03/20 15:36 36.3 04/03/20 15:12 49 24 96 50 04/03/20 15:05 49 153/87 04/03/20 15:04 49 153/87 04/03/20 15:00 36.3 52 21 154/88 (110) 96 Mechanical Ventilator 75.00 04/03/20 14:39 75.00 04/03/20 14:00 36.1 51 23 158/77 (104) 97 Mechanical Ventilator 50.00 04/03/20 13:14 49 04/03/20 12:53 50 04/03/20 12:00 36.2 49 24 153/87 (109) 96 Mechanical Ventilator 50.00 04/03/20 11:40 50 24 95 50 04/03/20 11:00 36.2 51 24 147/82 (103) 97 Mechanical Ventilator 50.00 04/03/20 10:21 60 130/85 04/03/20 10:21 61 130/85 04/03/20 10:00 36.3 51 24 148/86 (106) 94 Mechanical Ventilator 50.00 04/03/20 09:00 36.3 62 23 128/86 (100) 93 Mechanical Ventilator 50.00 04/03/20 08:00 36.4 80 24 126/81 (96) 92 Mechanical Ventilator 50.00 04/03/20 07:56 97 Mechanical Ventilator 40 04/03/20 07:11 51 24 95 50 04/03/20 07:00 36.4 73 23 139/85 (103) 96 Mechanical Ventilator 50.00 04/03/20 06:44 73 04/03/20 06:30 62 04/03/20 06:25 64 I & O 04/04/20 07:00 Intake Total 1460 ml Output Total 5835 ml Balance -4375 ml Height & Weight Height: '" Weight: lbs. oz. kg; 67.00 BMI Method: General Appearance: Obese, Other (sedated, on vent) Neck: Full Range of Motion Respiratory: Decreased Breath Sounds ( ), Rhonci; No Wheezing; Other (on vent) Cardiovascular: Regular Rate, Rhythm, No Murmur Capillary Refill: Less Than 3 Seconds Extremity: No Pedal Edema Neurologic/Psychiatric: Alert, Oriented x3 Results Lab Laboratory Tests 04/03/20 03:05 Assessment/Plan Assessment/Plan Acute respiratory failure secondary to COVID -19 with PNA with ARDS -Intubated 03/27 -s/p Remdesivir, CVP -Labs pending -Continue TF PEEP to 10 currently -Decadron -Change IVF to LR and decrease to 30cc/hr -Give 40mg of Lasix x 1 -Check BNP, PCT, and Ddimer -LR currently at 30cc/hr UTI -Currently on Merrem and Diflucan -Improving leukocytosis Morbid obesity Debility GI/DVT ppx -Lovenox ppx WINIFRED LEON DO Apr 04, 2020 06:06
[2020-04-04 06:26] LABS: BASOPHILS % (AUTO) 0 % (0-10); EOSINOPHILS % (AUTO) 1 % (0-10); HEMATOCRIT 36 % (35-52); LYMPHOCYTES # (AUTO) 0.6 10^3/uL (1.0-4.0); LYMPHOCYTES % (AUTO) 15 % (12-44); MEAN CORPUSCULAR HEMOGLOBIN 28 pg (25-34); MEAN CORPUSCULAR HGB CONC 31 g/dL (32-36); MEAN CORPUSCULAR VOLUME 90 fL (80-99); MEAN PLATELET VOLUME 10.9 fL (9.0-12.2); MONOCYTES # (AUTO) 0.5 10^3/uL (0.0-1.0); MONOCYTES % (AUTO) 12 % (0-12); NEUTROPHILS # (AUTO) 2.9 10^3/uL (1.8-7.8); NEUTROPHILS % (AUTO) 70 % (42-75); PLATELET COUNT 306 10^3/uL (130-400); WHITE BLOOD COUNT 4.2 10^3/uL (4.3-11.0)
[2020-04-04 06:52] LABS: BUN/CREATININE RATIO 27; CALCIUM 8.9 MG/DL (8.5-10.1); CARBON DIOXIDE 29 MMOL/L (21-32); CHLORIDE 100 MMOL/L (98-107); CREATININE SERUM 0.63 MG/DL (0.60-1.30); GFR ESTIMATED > 60; GLUCOSE 140 MG/DL (70-105); MAGNESIUM 2.3 MG/DL (1.6-2.4); PHOSPHORUS 3.4 MG/DL (2.3-4.7); POTASSIUM 3.9 MMOL/L (3.6-5.0); SODIUM 141 MMOL/L (135-145)
[2020-04-04] MEDS: MAGNESIUM 1 GM/100 ML IVPB 100 ML IV SCH (07:43)
[2020-04-04] MEDS: POTASSIUM CL 10MEQ/50ML IVPB 50 ML IV SCH (07:43)
[2020-04-04] MEDS: KCL 20 MEQ TAB (K-DUR) PO SCH (07:43)
--- NOTE | 2020-04-04 07:43 | Diagnostic Imaging Report ---
INDICATION: Covid pneumonia. Comparison made with prior examination 04/03/2020. FINDINGS: There are persistent bilateral pulmonary infiltrates. There is cardiomegaly. There is no pleural fusion or pneumothorax. Lines and tubes are in satisfactory position. IMPRESSION: Persistent bilateral airspace disease suspect for pneumonia. Some underlying central pulmonary venous congestion cannot be excluded. Dictated by: Dictated on workstation # [id number]
[2020-04-04] MEDS: METOCLOPRAMIDE INJ 10 MG/2 ML (REGLAN) IVP SCH ×2 (08:05→20:45)
[2020-04-04] MEDS: FAMOTIDINE 20MG/2ML IV (PEPCID) IV SCH ×2 (08:06→20:42)
[2020-04-04] MEDS: ENOXAPARIN 60 MG/0.6 ML (LOVENOX) SYR SC SCH ×2 (08:06→20:42)
[2020-04-04] MEDS: MICONAZOLE NITRATE 2% CRM 30 GM TP SCH ×2 (08:07→20:43)
[2020-04-04 08:27] VITALS: BP 143/85
[2020-04-04] MEDS: FLUCONAZOLE 100 MG/50 ML IVPB IV SCH ×2 (08:39)
[2020-04-04 09:46] LABS: ABG OXYGEN SATURATION 97 % (94-100); ABG PCO2 44 MMHG (35-45); ABG PH 7.46 (7.37-7.43); ABG PO2 83 MMHG (79-93); ABG TCO2 32.6 MMOL/L (21.0-31.0)
[2020-04-04 09:47] LABS: ALLENS TEST YES-POS; INSPIRED O2 70%; PATIENT TEMP 36.1; VENTILATOR YES
--- NOTE | 2020-04-04 13:23 | Physical Therapy Progress Note ---
Therapy Progress Note Pt intubated and sedated. PROM B U/LE available planes. Assisted nursing to turn her to unweight her buttock area. RANJANA ANDERSON PT Apr 04, 2020 13:23
--- NOTE | 2020-04-04 14:00 | NUR ---
PT'S SISTER YUNIER UPDATED ON CONDITION BY PHONE. NO QUESTIONS/CONCERNS VOICED.
[2020-04-04 15:08] VITALS: BP 136/76
--- NOTE | 2020-04-04 15:24 | NUR ---
Note pt is currently receiving Pulmocare via 60ml bolus feeds q4h with 30ml water flushes before and each bolus. Pt appears to be tolerating well when supine, but not when prone per Muna RN. Discussed with Muna about increasing TF to 75ml q4h when supine, but holding off when prone. Will continue to follow and reassess as pt needs, intake, and status change. Addy ZELAYA, MS RD LD
[2020-04-04] MEDS: ARTIFICIAL TEARS OINT (LACRI-LUBE) 3.5 GM TUBE OU SCH (20:46)
[2020-04-04 21:15] VITALS: BP 147/80
[2020-04-05] MEDS: fentaNYL DRIP PRE-MIX 250 ML IV SCH ×6 (00:51→22:28)
[2020-04-05] MEDS: PROPOFOL DRIP (ICU) 100 ML IV SCH ×4 (01:08→06:01)
[2020-04-05] MEDS: IPRATROPIUM INHALER (ATROVENT) 12.9 GM INH SCH ×7 (01:53→22:52)
[2020-04-05] MEDS: RT-ALBUTEROL INHALER HFA (VENTOLIN HFA) 18 GM IH SCH ×6 (01:53→22:52)
[2020-04-05 01:54] VITALS: BP 140/81
[2020-04-05 03:36] LABS: BASOPHILS % (AUTO) 0 % (0-10); EOSINOPHILS % (AUTO) 0 % (0-10); HEMATOCRIT 35 % (35-52); HEMOGLOBIN 11.3 g/dL (11.5-16.0); LYMPHOCYTES # (AUTO) 0.5 10^3/uL (1.0-4.0); LYMPHOCYTES % (AUTO) 16 % (12-44); MEAN CORPUSCULAR HEMOGLOBIN 29 pg (25-34); MEAN CORPUSCULAR HGB CONC 33 g/dL (32-36); MEAN CORPUSCULAR VOLUME 90 fL (80-99); MEAN PLATELET VOLUME 11.5 fL (9.0-12.2); MONOCYTES # (AUTO) 0.4 10^3/uL (0.0-1.0); MONOCYTES % (AUTO) 12 % (0-12); NEUTROPHILS # (AUTO) 2.1 10^3/uL (1.8-7.8); NEUTROPHILS % (AUTO) 68 % (42-75); PLATELET COUNT 295 10^3/uL (130-400); WHITE BLOOD COUNT 3.1 10^3/uL (4.3-11.0)
[2020-04-05 03:58] LABS: CHLORIDE 97 MMOL/L (98-107); POTASSIUM 4.1 MMOL/L (3.6-5.0); SODIUM 136 MMOL/L (135-145)
[2020-04-05 03:59] LABS: CALCIUM 8.5 MG/DL (8.5-10.1)
[2020-04-05 04:00] LABS: GLUCOSE 128 MG/DL (70-105)
[2020-04-05 04:01] LABS: CARBON DIOXIDE 27 MMOL/L (21-32)
[2020-04-05 04:04] LABS: CREATININE SERUM 0.61 MG/DL (0.60-1.30); GFR ESTIMATED > 60; PHOSPHORUS 3.4 MG/DL (2.3-4.7)
[2020-04-05 04:05] LABS: BUN/CREATININE RATIO 26
[2020-04-05 04:06] LABS: MAGNESIUM 1.8 MG/DL (1.6-2.4)
[2020-04-05 04:07] LABS: TRIGLYCERIDES 1624 MG/DL (<150)
[2020-04-05] MEDS: LACTATED RINGERS 1,000 ML IV SCH (04:59)
[2020-04-05] MEDS: KCL 20 MEQ TAB (K-DUR) PO SCH (05:47)
[2020-04-05] MEDS: MAGNESIUM 1 GM/100 ML IVPB 100 ML IV SCH (05:47)
[2020-04-05] MEDS: POTASSIUM CL 10MEQ/50ML IVPB 50 ML IV SCH (05:47)
[2020-04-05] MEDS: inSUlin ASPART (NovoLOG) 1 UNIT/0.01 ML (CHARGE PER UNIT) SC SCH ×3 (05:48→17:06)
[2020-04-05] MEDS: MEROPENEM 500 MG/SWFI 10 ML IV PUSH IV SCH ×2 (06:05)
[2020-04-05 06:53] VITALS: BP 140/81
[2020-04-05] MEDS: LEVOTHYROXINE 100 MCG (LEVOTHROID) TAB PO SCH (07:10)
--- NOTE | 2020-04-05 07:25 | Pulmonary Progress Note ---
Subjective Time Seen by a Provider: 07:24 Subjective/Events-last exam Sedated on vent. Sepsis Event Evaluation Height, Weight, BMI Height: '" Weight: lbs. oz. kg; 67.00 BMI Method: Exam Exam Vital Signs Date Time Temp Pulse Resp B/P (MAP) Pulse Ox O2 Delivery O2 Flow Rate FiO2 04/05/20 06:53 47 24 96 35 04/05/20 06:01 56 133/83 04/05/20 06:00 56 133/83 04/05/20 05:00 35.5 52 23 136/83 (100) 94 Mechanical Ventilator 70.00 04/05/20 04:00 35.6 53 23 131/80 (97) 93 Mechanical Ventilator 70.00 04/05/20 03:00 35.7 53 24 134/80 (98) 93 Mechanical Ventilator 70.00 04/05/20 02:00 35.7 55 23 136/79 (98) 93 Mechanical Ventilator 70.00 04/05/20 01:54 47 24 96 40 04/05/20 01:11 52 147/77 04/05/20 01:08 50 147/77 04/05/20 01:00 56 04/05/20 01:00 35.7 56 15 147/79 (101) 92 Mechanical Ventilator 70.00 04/05/20 00:00 35.7 52 23 140/93 (109) 93 Mechanical Ventilator 70.00 04/04/20 23:00 35.8 48 24 134/79 (97) 94 Mechanical Ventilator 70.00 04/04/20 22:00 35.9 51 24 148/86 (106) 94 Mechanical Ventilator 70.00 04/04/20 22:00 35.8 04/04/20 21:22 92 Mechanical Ventilator 70 04/04/20 21:15 52 24 95 60 04/04/20 21:00 36.1 46 24 135/74 (94) 93 Mechanical Ventilator 70.00 04/04/20 20:40 149/79 04/04/20 20:38 149/79 04/04/20 20:19 58 24 95 70 04/04/20 20:00 36.0 46 13 131/76 (94) 94 Mechanical Ventilator 70.00 04/04/20 19:00 47 04/04/20 19:00 36.0 46 23 134/77 (96) 93 Mechanical Ventilator 70.00 04/04/20 18:00 51 23 144/78 (100) 95 Mechanical Ventilator 70.00 04/04/20 17:00 49 23 148/81 (103) 96 Mechanical Ventilator 70.00 04/04/20 16:00 47 24 142/79 (100) 95 Mechanical Ventilator 70.00 04/04/20 15:53 54 136/76 04/04/20 15:53 54 136/76 04/04/20 15:52 Mechanical Ventilator 50.00 04/04/20 15:08 54 24 96 70 04/04/20 15:00 54 24 141/78 (99) 96 Mechanical Ventilator 70.00 04/04/20 14:00 51 15 132/78 (96) 95 Mechanical Ventilator 70.00 04/04/20 13:00 51 23 132/66 (88) 96 Mechanical Ventilator 70.00 04/04/20 12:30 49 04/04/20 12:08 46 143/85 04/04/20 12:07 46 143/85 04/04/20 12:00 49 23 150/79 (102) 95 Mechanical Ventilator 70.00 04/04/20 11:00 50 24 147/77 (100) 93 Mechanical Ventilator 70.00 04/04/20 10:00 47 19 129/73 (91) 93 Mechanical Ventilator 70.00 04/04/20 09:00 92 Mechanical Ventilator 70 04/04/20 09:00 46 24 160/84 (109) 93 Mechanical Ventilator 70.00 04/04/20 08:34 Mechanical Ventilator 70.00 04/04/20 08:27 46 24 94 70 04/04/20 08:07 72 134/78 04/04/20 08:07 72 134/78 04/04/20 08:00 46 13 123/71 (88) 94 Mechanical Ventilator 70.00 I & O 04/05/20 07:00 Intake Total 4175 ml Output Total 3600 ml Balance 575 ml Height & Weight Height: '" Weight: lbs. oz. kg; 67.00 BMI Method: General Appearance: Obese, Other (sedated, on vent) Neck: Full Range of Motion Respiratory: Decreased Breath Sounds ( ), Rhonci; No Wheezing; Other (on vent) Cardiovascular: Regular Rate, Rhythm, No Murmur Capillary Refill: Less Than 3 Seconds Extremity: No Pedal Edema Neurologic/Psychiatric: Alert, Oriented x3 Results Lab Laboratory Tests 04/04/20 06:20 04/05/20 03:01 Assessment/Plan Assessment/Plan Acute respiratory failure secondary to COVID -19 with PNA with ARDS -Intubated 03/27 -s/p Remdesivir, CVP -Labs pending -Continue TF PEEP to 10 currently -Decadron -Change IVF to LR and decrease to 30cc/hr -Check BNP, PCT, and Ddimer -LR currently at 30cc/hr UTI -Currently on Merrem and Diflucan -Improving leukocytosis Morbid obesity Debility GI/DVT ppx -Lovenox ppx WINIFRED LEON DO Apr 05, 2020 07:25
--- NOTE | 2020-04-05 07:41 | Diagnostic Imaging Report ---
INDICATION: Covid positive. TECHNIQUE: Single view chest 7:09 AM. CORRELATION STUDY: 04/04/2020 FINDINGS: Endotracheal tube projecting over the lower trachea, stable. Gastric tube likely in the proximal body of stomach. Right upper extremity central line tip over the SVC. Heart size and mediastinum remains enlarged and prominent. Extensive 5 lobe infiltrate persists stable to slightly increased. Small effusions suspect. IMPRESSION: 1. Generally stable appearance about support lines and tubes. 2. Extensive 5 lobe infiltrate stable to slightly progressed from prior. Dictated by: Dictated on workstation # [id number]
[2020-04-05] MEDS: MIDAZOLAM DRIP PRE-MIX 100 ML IV SCH ×2 (07:59→21:11)
[2020-04-05] MEDS: FAMOTIDINE 20MG/2ML IV (PEPCID) IV SCH ×2 (08:03→20:35)
[2020-04-05] MEDS: FLUCONAZOLE 100 MG/50 ML IVPB IV SCH ×2 (08:03)
[2020-04-05] MEDS: METOCLOPRAMIDE INJ 10 MG/2 ML (REGLAN) IVP SCH ×2 (08:04→20:35)
[2020-04-05] MEDS: DOCUSATE SODIUM 10 MG/ML 10 ML UDC (COLACE) PO SCH ×2 (08:04→20:35)
[2020-04-05] MEDS: ENOXAPARIN 60 MG/0.6 ML (LOVENOX) SYR SC SCH ×2 (08:05→20:35)
[2020-04-05] MEDS: MICONAZOLE NITRATE 2% CRM 30 GM TP SCH ×2 (08:12→20:36)
[2020-04-05] MEDS: ARTIFICIAL TEARS OINT (LACRI-LUBE) 3.5 GM TUBE OU SCH ×2 (08:13→20:36)
[2020-04-05 08:43] LABS: ABG BASE EXCESS 7.4 MMOL/L (-2.5-2.5); ABG OXYGEN SATURATION 48 % (94-100); ABG PCO2 47 MMHG (35-45); ABG PH 7.44 (7.37-7.43); ABG TCO2 33.5 MMOL/L (21.0-31.0)
[2020-04-05 08:46] LABS: ABG PO2 29 MMHG (79-93); ALLENS TEST YES-POS
[2020-04-05 08:47] LABS: INSPIRED O2 45%; PATIENT TEMP 35.6; VENTILATOR YES
[2020-04-05 10:45] VITALS: BP 137/76
--- NOTE | 2020-04-05 11:24 | Physical Therapy Progress Note ---
Therapy Progress Note Patient sedated and ventilated. PROM all extremities. AIME GIFFORD PT Apr 05, 2020 11:24
--- NOTE | 2020-04-05 13:57 | NUR ---
Note pt currently intubated/sedated. Note pt currently receiving Pulmocare via 75ml bolus feeds q4h, with 30ml water flushes before/after each bolus. Recommend increase TF by 30ml q8h as tolerated, toward goal of 150ml bolus feed q4h. Will continue to follow and reassess as pt needs, intake, and status change. Srinivasa Franks, MS RD [phone] cell
[2020-04-05 15:13] VITALS: BP 148/84
--- NOTE | 2020-04-05 15:30 | NUR ---
ATTEMPTED T.F WHILE PT IN PRONE POSITION. WATER FLUSH STARTED COMING OUT OF PT'S MOUTH. ORAL CARE DONE AND T.F HELD UNTIL TURNED BACK SUPINE.
--- NOTE | 2020-04-05 15:42 | NUR ---
PT'S SISTER YUNIER UPDATED ON CONDITION BY PHONE. NO QUESTIONS/CONCERNS VOICED.
[2020-04-05 19:30] VITALS: BP 138/81
[2020-04-05 22:52] VITALS: BP 136/82
[2020-04-06] MEDS: inSUlin ASPART (NovoLOG) 1 UNIT/0.01 ML (CHARGE PER UNIT) SC SCH ×5 (00:46→22:36)
[2020-04-06] MEDS: IPRATROPIUM INHALER (ATROVENT) 12.9 GM INH SCH ×6 (03:06→21:37)
[2020-04-06] MEDS: RT-ALBUTEROL INHALER HFA (VENTOLIN HFA) 18 GM IH SCH ×6 (03:06→21:37)
[2020-04-06 03:07] VITALS: BP 162/95
[2020-04-06 03:14] LABS: BASOPHILS % (AUTO) 0 % (0-10); EOSINOPHILS % (AUTO) 0 % (0-10); HEMATOCRIT 37 % (35-52); HEMOGLOBIN 11.4 g/dL (11.5-16.0); LYMPHOCYTES # (AUTO) 0.6 10^3/uL (1.0-4.0); LYMPHOCYTES % (AUTO) 16 % (12-44); MEAN CORPUSCULAR HEMOGLOBIN 28 pg (25-34); MEAN CORPUSCULAR HGB CONC 31 g/dL (32-36); MEAN CORPUSCULAR VOLUME 90 fL (80-99); MEAN PLATELET VOLUME 11.1 fL (9.0-12.2); MONOCYTES # (AUTO) 0.4 10^3/uL (0.0-1.0); MONOCYTES % (AUTO) 12 % (0-12); NEUTROPHILS # (AUTO) 2.5 10^3/uL (1.8-7.8); NEUTROPHILS % (AUTO) 68 % (42-75); PLATELET COUNT 321 10^3/uL (130-400); WHITE BLOOD COUNT 3.6 10^3/uL (4.3-11.0)
[2020-04-06 03:15] LABS: ABG BASE EXCESS 7.6 MMOL/L (-2.5-2.5); ABG OXYGEN SATURATION 97 % (94-100); ABG PCO2 48 MMHG (35-45); ABG PH 7.43 (7.37-7.43); ABG PO2 87 MMHG (79-93); ABG TCO2 33.7 MMOL/L (21.0-31.0)
[2020-04-06 03:16] LABS: ALLENS TEST POSITIVE; INSPIRED O2 35; PATIENT TEMP 36; VENTILATOR YES
[2020-04-06 03:25] LABS: CHLORIDE 100 MMOL/L (98-107); SODIUM 140 MMOL/L (135-145)
[2020-04-06 03:26] LABS: CALCIUM 8.8 MG/DL (8.5-10.1)
[2020-04-06 03:27] LABS: GLUCOSE 115 MG/DL (70-105)
[2020-04-06 03:28] LABS: CARBON DIOXIDE 28 MMOL/L (21-32)
[2020-04-06 03:30] LABS: PHOSPHORUS 3.8 MG/DL (2.3-4.7)
[2020-04-06 03:31] LABS: CREATININE SERUM 0.61 MG/DL (0.60-1.30); GFR ESTIMATED > 60
[2020-04-06 03:32] LABS: BUN/CREATININE RATIO 28
[2020-04-06 03:33] LABS: MAGNESIUM 1.7 MG/DL (1.6-2.4)
[2020-04-06] MEDS: fentaNYL DRIP PRE-MIX 250 ML IV SCH ×4 (04:48→20:14)
[2020-04-06] MEDS: MAGNESIUM 1 GM/100 ML IVPB 100 ML IV SCH (05:25)
[2020-04-06] MEDS: POTASSIUM CL 10MEQ/50ML IVPB 50 ML IV SCH (05:25)
[2020-04-06] MEDS: KCL 20 MEQ TAB (K-DUR) PO SCH (05:26)
[2020-04-06] MEDS: LEVOTHYROXINE 100 MCG (LEVOTHROID) TAB PO SCH (06:12)
[2020-04-06 06:48] VITALS: BP 119/66
--- NOTE | 2020-04-06 06:55 | Diagnostic Imaging Report ---
INDICATION: COVID pneumonia. Comparison made with prior examination of 04/05/2020. FINDINGS: There are bilateral pulmonary infiltrates. There is cardiomegaly. There is some venous congestion. No pneumothorax. Lines and tubes are in satisfactory position. IMPRESSION: Bilateral pulmonary infiltrates suspect for pneumonia. Cardiomegaly and some central pulmonary venous congestion. Dictated by: Dictated on workstation # [id number]
[2020-04-06] MEDS: LACTATED RINGERS 1,000 ML IV SCH (08:33)
[2020-04-06] MEDS: FLUCONAZOLE 100 MG/50 ML IVPB IV SCH ×2 (08:33)
[2020-04-06] MEDS: DOCUSATE SODIUM 10 MG/ML 10 ML UDC (COLACE) PO SCH ×2 (08:34→20:14)
[2020-04-06] MEDS: MICONAZOLE NITRATE 2% CRM 30 GM TP SCH ×2 (08:34→20:15)
[2020-04-06] MEDS: ENOXAPARIN 60 MG/0.6 ML (LOVENOX) SYR SC SCH ×2 (08:34→20:14)
[2020-04-06] MEDS: METOCLOPRAMIDE INJ 10 MG/2 ML (REGLAN) IVP SCH ×2 (08:34→20:14)
[2020-04-06] MEDS: FAMOTIDINE 20MG/2ML IV (PEPCID) IV SCH ×2 (08:34→20:14)
[2020-04-06] MEDS: ARTIFICIAL TEARS OINT (LACRI-LUBE) 3.5 GM TUBE OU SCH ×2 (08:34→20:15)
[2020-04-06 10:42] VITALS: BP 132/79
--- NOTE | 2020-04-06 11:51 | Progress Note - Hospitalist ---
Subjective HPI/CC On Admission Date Seen by Provider: Apr 06, 2020 Time Seen by Provider: 11:15 Subjective/Events-last exam No major events overnight Reviewed meds and labs Vent management appreciated Objective Exam Vital Signs Vital Signs Date Time Temp Pulse Resp B/P (MAP) Pulse Ox O2 Delivery O2 Flow Rate FiO2 04/07/20 06:00 37.7 82 20 99/59 (72) 93 Mechanical Ventilator 30.00 04/07/20 01:58 35 Capillary Refill : Less Than 3 Seconds General Appearance: No Apparent Distress, WD/WN, Chronically ill, Obese Respiratory: Normal Breath Sounds, Decreased Breath Sounds Cardiovascular: Regular Rate, Rhythm Neurologic/Psychiatric: Other (sedated) Results/Procedures Lab Laboratory Tests 04/07/20 02:05 Patient resulted labs reviewed. Assessment/Plan Assessment and Plan Assess & Plan/Chief Complaint Assessment per Dr Mcclure: Acute respiratory failure secondary to COVID -19 with PNA with ARDS -Intubated 03/27 -s/p Remdesivir, CVP -Labs pending -Continue TF PEEP to 10 currently -Decadron -Change IVF to LR and decrease to 30cc/hr -Check BNP, PCT, and Ddimer -LR currently at 30cc/hr UTI -Currently on Merrem and Diflucan -Improving leukocytosis Morbid obesity Debility GI/DVT ppx -Lovenox ppx 04/06/20: Prone position helpful since desats when supine Clinical Quality Measures DVT/VTE Risk/Contraindication: Risk Factor Score Per Nursin RFS Level Per Nursing on Admit: 4+=Very High TREMAINE PANDYA DO Apr 06, 2020 11:51
[2020-04-06] MEDS: MIDAZOLAM DRIP PRE-MIX 100 ML IV SCH (13:04)
[2020-04-06 14:55] VITALS: BP 137/91
[2020-04-06] MEDS ORDERED: FUROSEMIDE 40 MG/4 ML INJ (LASIX) ONE (16:02)
[2020-04-06 20:10] VITALS: BP 139/83
[2020-04-06 21:38] VITALS: BP 129/74
[2020-04-07] MEDS: fentaNYL DRIP PRE-MIX 250 ML IV SCH ×5 (01:53→23:22)
[2020-04-07] MEDS: RT-ALBUTEROL INHALER HFA (VENTOLIN HFA) 18 GM IH SCH ×6 (01:58→22:24)
[2020-04-07] MEDS: IPRATROPIUM INHALER (ATROVENT) 12.9 GM INH SCH ×6 (01:58→22:23)
[2020-04-07 02:11] LABS: BASOPHILS % (AUTO) 0 % (0-10); EOSINOPHILS # (AUTO) 0.1 10^3/uL (0.0-0.3); EOSINOPHILS % (AUTO) 2 % (0-10); HEMATOCRIT 39 % (35-52); HEMOGLOBIN 11.7 g/dL (11.5-16.0); LYMPHOCYTES # (AUTO) 0.8 10^3/uL (1.0-4.0); LYMPHOCYTES % (AUTO) 16 % (12-44); MEAN CORPUSCULAR HEMOGLOBIN 28 pg (25-34); MEAN CORPUSCULAR HGB CONC 30 g/dL (32-36); MEAN CORPUSCULAR VOLUME 91 fL (80-99); MEAN PLATELET VOLUME 10.7 fL (9.0-12.2); MONOCYTES # (AUTO) 0.6 10^3/uL (0.0-1.0); MONOCYTES % (AUTO) 11 % (0-12); NEUTROPHILS # (AUTO) 3.4 10^3/uL (1.8-7.8); NEUTROPHILS % (AUTO) 69 % (42-75); PLATELET COUNT 324 10^3/uL (130-400)
[2020-04-07 02:29] LABS: CHLORIDE 97 MMOL/L (98-107); POTASSIUM 3.6 MMOL/L (3.6-5.0); SODIUM 138 MMOL/L (135-145)
[2020-04-07 02:30] LABS: CALCIUM 8.9 MG/DL (8.5-10.1)
[2020-04-07 02:31] LABS: GLUCOSE 111 MG/DL (70-105); TRIGLYCERIDES 365 MG/DL (<150)
[2020-04-07 02:32] LABS: CARBON DIOXIDE 27 MMOL/L (21-32)
[2020-04-07 02:34] LABS: PHOSPHORUS 3.6 MG/DL (2.3-4.7)
[2020-04-07 02:35] LABS: BUN/CREATININE RATIO 29; CREATININE SERUM 0.62 MG/DL (0.60-1.30); GFR ESTIMATED > 60
[2020-04-07 02:37] LABS: MAGNESIUM 1.4 MG/DL (1.6-2.4)
[2020-04-07 02:45] LABS: ABG BASE EXCESS 7.7 MMOL/L (-2.5-2.5); ABG OXYGEN SATURATION 94 % (94-100); ABG PCO2 42 MMHG (35-45); ABG PH 7.49 (7.37-7.43); ABG PO2 65 MMHG (79-93); ALLENS TEST POSITIVE; INSPIRED O2 35; PATIENT TEMP 37.3; VENTILATOR YES
[2020-04-07] MEDS: MIDAZOLAM DRIP PRE-MIX 100 ML IV SCH ×2 (04:29→21:51)
[2020-04-07] MEDS: MAGNESIUM 1 GM/100 ML IVPB 100 ML IV SCH ×3 (04:57→06:39)
[2020-04-07] MEDS: POTASSIUM CL 10MEQ/50ML IVPB 50 ML IV SCH ×3 (04:57→06:38)
[2020-04-07] MEDS: LACTATED RINGERS 1,000 ML IV SCH ×2 (06:38→16:01)
[2020-04-07] MEDS: KCL 20 MEQ TAB (K-DUR) PO SCH (06:39)
[2020-04-07] MEDS: inSUlin ASPART (NovoLOG) 1 UNIT/0.01 ML (CHARGE PER UNIT) SC SCH ×4 (06:47→23:12)
[2020-04-07 07:19] VITALS: BP 100/65
--- NOTE | 2020-04-07 08:20 | Diagnostic Imaging Report ---
CHEST 1 VIEW, AP/PA ONLY Indication: Intubation Comparison: 04/06/2020 Findings: Stable ET and enteric tubes. The tip of the ET tube is 2 cm above the candice. Stable right PICC. Diffuse bilateral pulmonary opacities have increased. No pleural effusion or pneumothorax. Grossly stable cardiomediastinal silhouette. Impression: 1. Stable position of ET and enteric tubes. 2. Mild progression in bilateral pulmonary consolidations. Dictated by: Dictated on workstation # [id number]
[2020-04-07] MEDS: FAMOTIDINE 20MG/2ML IV (PEPCID) IV SCH ×2 (08:49→21:51)
[2020-04-07] MEDS: LEVOTHYROXINE 100 MCG (LEVOTHROID) TAB PO SCH (08:49)
[2020-04-07] MEDS: MICONAZOLE NITRATE 2% CRM 30 GM TP SCH ×2 (08:49→21:52)
[2020-04-07] MEDS: DOCUSATE SODIUM 10 MG/ML 10 ML UDC (COLACE) PO SCH ×2 (08:49→21:52)
[2020-04-07] MEDS: METOCLOPRAMIDE INJ 10 MG/2 ML (REGLAN) IVP SCH ×2 (08:49→21:51)
[2020-04-07] MEDS: ARTIFICIAL TEARS OINT (LACRI-LUBE) 3.5 GM TUBE OU SCH ×2 (08:49→21:52)
[2020-04-07] MEDS: ENOXAPARIN 60 MG/0.6 ML (LOVENOX) SYR SC SCH ×2 (08:50→21:52)
[2020-04-07] MEDS ORDERED: APAP 325 MG/10.15 ML LIQ (TYLENOL) UDC ONE (08:51)
[2020-04-07] MEDS: APAP 325 MG/10.15 ML LIQ (TYLENOL) UDC PO PRN (08:54)
[2020-04-07] MEDS ORDERED: FUROSEMIDE 40 MG/4 ML INJ (LASIX) IVP ONE (10:00)
[2020-04-07 11:13] VITALS: BP 96/43
--- NOTE | 2020-04-07 11:54 | Progress Note - Hospitalist ---
Subjective HPI/CC On Admission Date Seen by Provider: Apr 07, 2020 Time Seen by Provider: 11:00 Subjective/Events-last exam No major events overnight [place] candidate? Monitor BP Objective Exam Vital Signs Vital Signs Date Time Temp Pulse Resp B/P (MAP) Pulse Ox O2 Delivery O2 Flow Rate FiO2 04/07/20 19:10 82 24 94 40 04/07/20 18:08 35.00 04/07/20 18:00 37.6 116/57 (70) Mechanical Ventilator Capillary Refill : Less Than 3 Seconds General Appearance: No Apparent Distress, WD/WN, Chronically ill Respiratory: Lungs Clear, Normal Breath Sounds Cardiovascular: Regular Rate, Rhythm Results/Procedures Lab Laboratory Tests 04/07/20 02:05 Patient resulted labs reviewed. Assessment/Plan Assessment and Plan Assess & Plan/Chief Complaint Assessment per Dr Mcclure: Acute respiratory failure secondary to COVID -19 with PNA with ARDS -Intubated 03/27 -s/p Remdesivir, CVP -Labs pending -Continue TF PEEP to 10 currently -Decadron -Change IVF to LR and decrease to 30cc/hr -Check BNP, PCT, and Ddimer -LR currently at 30cc/hr UTI -Currently on Merrem and Diflucan -Improving leukocytosis Morbid obesity Debility GI/DVT ppx -Lovenox ppx 04/06/20: Prone position helpful since desats when supine 04/07/20: supine now and doing much better Clinical Quality Measures DVT/VTE Risk/Contraindication: Risk Factor Score Per Nursin RFS Level Per Nursing on Admit: 4+=Very High TREMAINE PANDYA DO Apr 07, 2020 11:54
[2020-04-07 14:37] VITALS: BP 117/61
[2020-04-07 19:10] VITALS: BP 100/65
[2020-04-07 22:24] VITALS: BP 106/53
[2020-04-08] MEDS: RT-ALBUTEROL INHALER HFA (VENTOLIN HFA) 18 GM IH SCH ×6 (02:44→21:28)
[2020-04-08] MEDS: IPRATROPIUM INHALER (ATROVENT) 12.9 GM INH SCH ×6 (02:44→21:28)
[2020-04-08 02:45] VITALS: BP 116/84
[2020-04-08 03:23] LABS: BASOPHILS % (AUTO) 0 % (0-10); EOSINOPHILS % (AUTO) 1 % (0-10); HEMATOCRIT 33 % (35-52); HEMOGLOBIN 10.1 g/dL (11.5-16.0); LYMPHOCYTES # (AUTO) 0.8 10^3/uL (1.0-4.0); LYMPHOCYTES % (AUTO) 14 % (12-44); MEAN CORPUSCULAR HEMOGLOBIN 28 pg (25-34); MEAN CORPUSCULAR HGB CONC 30 g/dL (32-36); MEAN CORPUSCULAR VOLUME 92 fL (80-99); MONOCYTES # (AUTO) 0.5 10^3/uL (0.0-1.0); MONOCYTES % (AUTO) 9 % (0-12); NEUTROPHILS # (AUTO) 3.9 10^3/uL (1.8-7.8); NEUTROPHILS % (AUTO) 74 % (42-75); PLATELET COUNT 273 10^3/uL (130-400); WHITE BLOOD COUNT 5.3 10^3/uL (4.3-11.0)
[2020-04-08 03:26] LABS: ALLENS TEST POSITIVE; INSPIRED O2 35; PATIENT TEMP 37.5; VENTILATOR YES
[2020-04-08 03:35] LABS: CHLORIDE 100 MMOL/L (98-107); POTASSIUM 3.7 MMOL/L (3.6-5.0); SODIUM 139 MMOL/L (135-145)
[2020-04-08 03:36] LABS: CALCIUM 8.4 MG/DL (8.5-10.1); GLUCOSE 153 MG/DL (70-105)
[2020-04-08 03:38] LABS: CARBON DIOXIDE 27 MMOL/L (21-32)
[2020-04-08 03:40] LABS: CREATININE SERUM 0.71 MG/DL (0.60-1.30); GFR ESTIMATED > 60; PHOSPHORUS 3.8 MG/DL (2.3-4.7)
[2020-04-08 03:41] LABS: BUN/CREATININE RATIO 34
[2020-04-08 03:43] LABS: MAGNESIUM 1.6 MG/DL (1.6-2.4)
[2020-04-08] MEDS ORDERED: FUROSEMIDE 40 MG/4 ML INJ (LASIX) ONE (04:44)
--- NOTE | 2020-04-08 04:44 | Pulmonary Progress Note ---
Subjective Time Seen by a Provider: 04:40 Subjective/Events-last exam Sedated on vent. Sepsis Event Evaluation Height, Weight, BMI Height: '" Weight: lbs. oz. kg; 67.00 BMI Method: Exam Exam Vital Signs Date Time Temp Pulse Resp B/P (MAP) Pulse Ox O2 Delivery O2 Flow Rate FiO2 04/08/20 04:00 37.6 90 24 110/53 (72) 96 Mechanical Ventilator 35.00 04/08/20 03:00 37.5 80 24 125/61 (82) 92 Mechanical Ventilator 30.00 04/08/20 02:45 75 24 91 40 04/08/20 02:00 37.4 80 23 114/56 (75) 90 Mechanical Ventilator 30.00 04/08/20 01:00 37.4 84 24 111/53 (72) 89 Mechanical Ventilator 30.00 04/08/20 01:00 84 04/08/20 00:00 37.4 82 24 102/51 (68) 91 Mechanical Ventilator 30.00 04/07/20 23:00 37.5 86 23 118/59 (78) 96 Mechanical Ventilator 30.00 04/07/20 22:24 84 24 94 40 04/07/20 22:00 37.5 83 101/49 (66) 90 Mechanical Ventilator 30.00 04/07/20 21:51 83 24 96/46 04/07/20 21:30 Mechanical Ventilator 30.00 04/07/20 21:00 95 Mechanical Ventilator 35 04/07/20 21:00 37.5 80 25 116/58 (77) 90 Mechanical Ventilator 35.00 04/07/20 20:45 37.5 81 25 120/55 (71) 90 04/07/20 20:30 37.5 73 24 117/59 (74) 91 04/07/20 20:15 37.5 83 33 113/55 (74) 90 04/07/20 20:00 37.5 82 25 112/56 (69) 90 Mechanical Ventilator 35.00 04/07/20 19:45 37.5 84 27 114/56 (71) 90 04/07/20 19:30 37.6 82 33 113/54 (69) 90 04/07/20 19:15 37.6 83 33 110/53 (67) 91 04/07/20 19:10 82 24 94 40 04/07/20 19:00 86 12/13/20 19:00 37.6 86 24 108/54 (68) 91 Mechanical Ventilator 35.00 04/07/20 18:08 35.00 04/07/20 18:00 37.6 78 23 116/57 (70) 92 Mechanical Ventilator 40.00 04/07/20 17:45 37.5 98 41 118/69 (86) 93 04/07/20 17:30 37.6 101 25 123/59 (74) 92 04/07/20 17:15 37.6 101 25 117/62 (78) 92 04/07/20 17:00 37.6 101 24 118/54 (77) 94 Mechanical Ventilator 40.00 04/07/20 16:45 37.6 98 23 119/54 (71) 95 04/07/20 16:30 37.6 80 24 121/57 (77) 98 04/07/20 16:15 37.6 80 26 113/54 (69) 97 04/07/20 16:00 37.6 78 26 120/59 (76) 97 Mechanical Ventilator 40.00 04/07/20 15:45 37.6 78 26 127/57 (74) 97 04/07/20 15:30 37.6 82 27 127/57 (69) 97 04/07/20 15:15 37.5 83 27 122/53 (74) 98 04/07/20 15:00 37.5 76 25 130/57 (78) 96 Mechanical Ventilator 40.00 04/07/20 14:45 37.5 75 25 127/62 (79) 95 04/07/20 14:37 81 24 94 40 04/07/20 14:30 37.5 81 24 117/61 (77) 94 04/07/20 14:15 37.6 72 23 115/53 (69) 93 04/07/20 14:00 37.6 79 24 110/56 (73) 93 Mechanical Ventilator 40.00 04/07/20 13:45 37.6 83 25 109/55 (69) 93 04/07/20 13:30 37.7 79 27 112/51 (68) 93 04/07/20 13:15 37.7 79 24 114/50 (65) 93 04/07/20 13:00 37.7 78 28 112/50 (67) 93 Mechanical Ventilator 40.00 04/07/20 12:45 37.7 71 48 155/71 (95) 92 04/07/20 12:37 109 04/07/20 12:30 37.8 110 24 101/52 (71) 92 04/07/20 12:15 37.8 110 27 101/50 (67) 93 04/07/20 12:00 37.8 109 25 100/56 (72) 93 Mechanical Ventilator 40.00 04/07/20 11:45 37.8 108 27 102/60 (74) 94 04/07/20 11:30 37.8 101 26 98/54 (72) 94 04/07/20 11:15 37.8 101 26 97/59 (72) 95 04/07/20 11:13 102 25 95 40 04/07/20 11:00 37.8 105 26 96/43 (57) 95 Mechanical Ventilator 40.00 04/07/20 10:45 37.9 100 35 87/51 (65) 94 04/07/20 10:30 37.9 106 26 91/44 (55) 94 04/07/20 10:15 37.9 105 26 95/46 (58) 95 04/07/20 10:00 37.9 110 24 79/46 (58) 90 Mechanical Ventilator 40.00 04/07/20 09:45 37.9 88 34 84/47 (58) 92 04/07/20 09:34 37.9 04/07/20 09:30 37.9 88 32 89/52 (64) 92 04/07/20 09:15 37.8 86 28 113/62 (78) 92 04/07/20 09:00 37.8 81 36 100/58 (70) 93 Mechanical Ventilator 40.00 04/07/20 08:54 37.8 04/07/20 08:45 40.00 04/07/20 08:45 92 Mechanical Ventilator 40 04/07/20 08:45 37.8 104/64 (73) 04/07/20 08:30 37.8 98 56 94/65 (75) 89 04/07/20 08:15 37.8 98 56 108/62 (79) 89 04/07/20 08:00 37.8 82 27 105/63 (76) 90 Mechanical Ventilator 30.00 04/07/20 07:45 37.8 83 27 109/64 (78) 91 04/07/20 07:30 37.7 82 33 107/64 (79) 90 04/07/20 07:19 80 24 90 35 04/07/20 07:15 37.7 82 29 100/65 (75) 91 04/07/20 07:00 37.7 81 24 101/63 (74) 91 Mechanical Ventilator 30.00 04/07/20 07:00 82 04/07/20 06:45 37.7 80 22 106/62 (76) 93 04/07/20 06:30 37.7 17 99/60 (71) 90 04/07/20 06:15 37.7 22 99/59 (72) 91 04/07/20 06:00 37.7 82 20 99/59 (72) 93 Mechanical Ventilator 30.00 04/07/20 05:00 37.6 79 24 112/64 (80) 94 Mechanical Ventilator 30.00 I & O 04/08/20 07:00 Intake Total 2830 ml Output Total 515 ml Balance 2315 ml Height & Weight Height: '" Weight: lbs. oz. kg; 67.00 BMI Method: General Appearance: No Apparent Distress, WD/WN, Chronically ill Neck: Full Range of Motion Respiratory: Lungs Clear, Normal Breath Sounds Cardiovascular: Regular Rate, Rhythm Capillary Refill: Less Than 3 Seconds Extremity: No Pedal Edema Neurologic/Psychiatric: Other (sedated) Results Lab Laboratory Tests 04/07/20 02:05 04/08/20 03:00 Assessment/Plan Assessment/Plan Acute respiratory failure secondary to COVID -19 with PNA with ARDS -Intubated 03/27 -s/p Remdesivir, CVP -Labs pending -Continue TF PEEP to 10 currently -Decadron -Change IVF to LR and decrease to 30cc/hr -Check BNP, PCT, and Ddimer -LR currently at 30cc/hr UTI -Currently on Merrem and Diflucan -Improving leukocytosis Morbid obesity Debility GI/DVT ppx -Lovenox ppx WINIFRED LEON DO Apr 08, 2020 04:44
[2020-04-08] MEDS ORDERED: FUROSEMIDE 40 MG/4 ML INJ (LASIX) IVP ONE (04:45)
[2020-04-08] MEDS: POTASSIUM CL 10MEQ/50ML IVPB 50 ML IV SCH ×4 (05:16→06:33)
[2020-04-08 05:22] LABS: ABG PCO2 52 MMHG (35-45); ABG PO2 59 MMHG (79-93)
[2020-04-08 05:23] LABS: ABG BASE EXCESS 6.8 MMOL/L (-2.5-2.5); ABG OXYGEN SATURATION 88 % (94-100)
[2020-04-08] MEDS: KCL 20 MEQ TAB (K-DUR) PO SCH (05:50)
[2020-04-08] MEDS: inSUlin ASPART (NovoLOG) 1 UNIT/0.01 ML (CHARGE PER UNIT) SC SCH ×3 (05:50→17:44)
[2020-04-08] MEDS: MAGNESIUM 1 GM/100 ML IVPB 100 ML IV SCH ×2 (05:50→07:35)
[2020-04-08] MEDS: LEVOTHYROXINE 100 MCG (LEVOTHROID) TAB PO SCH (06:05)
--- NOTE | 2020-04-08 07:17 | Diagnostic Imaging Report ---
EXAM: CHEST 1 VIEW, AP/PA ONLY INDICATION: Hypoxia. COMPARISON: Chest radiograph 04/07/2020. FINDINGS: ETT tip is approximately 1 cm from the candice. NG tube tip and side-port in the stomach. Low lung volumes. There has been some improved aeration of the left lung with persistent airspace opacification bilaterally. Small to moderate pleural effusions greater on the left. Right PICC tip near the RA/SVC junction. No pneumothorax. Epidural spinal stimulator. IMPRESSION: 1. Mild improved aeration in the left lung with persistent airspace opacities in both lungs. 2. Small to moderate bilateral pleural effusions, greater on the left. 3. ETT is approximately 1 cm from the candice. Dictated by: Dictated on workstation # [id number]
[2020-04-08] MEDS: fentaNYL DRIP PRE-MIX 250 ML IV SCH ×3 (07:34→17:45)
[2020-04-08] MEDS: METOCLOPRAMIDE INJ 10 MG/2 ML (REGLAN) IVP SCH ×2 (07:45→21:16)
[2020-04-08] MEDS: DOCUSATE SODIUM 10 MG/ML 10 ML UDC (COLACE) PO SCH ×2 (07:45→21:15)
[2020-04-08] MEDS: ENOXAPARIN 60 MG/0.6 ML (LOVENOX) SYR SC SCH ×2 (07:45→21:16)
[2020-04-08] MEDS: MICONAZOLE NITRATE 2% CRM 30 GM TP SCH ×2 (07:46→21:15)
[2020-04-08] MEDS: ARTIFICIAL TEARS OINT (LACRI-LUBE) 3.5 GM TUBE OU SCH ×2 (07:46→21:15)
[2020-04-08] MEDS: FAMOTIDINE 20MG/2ML IV (PEPCID) IV SCH ×2 (07:46→21:16)
[2020-04-08 09:15] VITALS: BP 116/57
--- NOTE | 2020-04-08 11:46 | Physical Therapy Progress Note ---
Therapy Progress Note Patient sedated and intubated. PROM and repositioning performed. AIME GIFFORD PT Apr 08, 2020 11:46
--- NOTE | 2020-04-08 11:48 | Physical Therapy Progress Note ---
Therapy Progress Note Non skilled PROM B U/LE in available planes. Assisted nursing to reposition patient. RANJANA ANDERSON PT Apr 08, 2020 11:48
[2020-04-08] MEDS: MIDAZOLAM DRIP PRE-MIX 100 ML IV SCH (12:58)
[2020-04-08] MEDS: DexMEDEtomidine PRE MIX 100 ML IV SCH ×2 (14:58→21:38)
--- NOTE | 2020-04-08 15:46 | NUR ---
PT'S SISTER YUNIER UPDATED ON CONDITION BY PHONE. NO QUESTIONS/CONCERNS VOICED.
--- NOTE | 2020-04-08 17:12 | NUR ---
CM/SS: Telephone call to Adela - [phone] - sister of pt - she reports that she would like for pt to be considered for placement at a senior care acute care hospital in [place]. She reports that pt has not lived at the [facility] and that pt's son is from [place]. They want pt to be closer to her son and grandson. Sister reports that they feel like they want pt to get better, but being closer to family will help. Discuss visitation and limits at some facilities. She verbalizes understanding. Telephone call back to sister [phone] later in the day. Letting her know that there is a wait list for the facility in [place] by 25 people. She would like for a referral to be sent there, as well as she is open to any facility that will take pt. Even in the facility is in [facility] with the hope that pt can be moved closer to [place] at some time. This worker will follow up.
--- NOTE | 2020-04-08 17:20 | NUR ---
Note pt is currently receiving Pulm[facility] via 105ml bolus feeds q4h with 60ml water flushes before/after each bolus. Continue to increase TF by 30ml q8h as tolerated toward goal of 150ml bolus feeds q4h. Will continue to follow and reassess as pt needs, intake, and status change. Srinivasa Franks, MS RD LD [phone] cell
--- NOTE | 2020-04-08 17:51 | NUR ---
med scanner has not been working during this rn's shift. unable to scan all meds.
[2020-04-08 18:26] VITALS: BP 121/63
[2020-04-08] MEDS: APAP 325 MG/10.15 ML LIQ (TYLENOL) UDC PO PRN (21:15)
[2020-04-08 21:28] VITALS: BP 128/63
[2020-04-09] MEDS: inSUlin ASPART (NovoLOG) 1 UNIT/0.01 ML (CHARGE PER UNIT) SC SCH ×5 (00:43→23:50)
[2020-04-09] MEDS: fentaNYL DRIP PRE-MIX 250 ML IV SCH ×4 (00:43→20:07)
[2020-04-09 01:13] VITALS: BP 118/60
[2020-04-09] MEDS: RT-ALBUTEROL INHALER HFA (VENTOLIN HFA) 18 GM IH SCH ×7 (01:13→22:23)
[2020-04-09] MEDS: IPRATROPIUM INHALER (ATROVENT) 12.9 GM INH SCH ×5 (01:13→22:23)
[2020-04-09] MEDS: DexMEDEtomidine PRE MIX 100 ML IV SCH ×4 (02:52→20:05)
[2020-04-09 03:32] LABS: BASOPHILS % (AUTO) 0 % (0-10); EOSINOPHILS % (AUTO) 1 % (0-10); HEMATOCRIT 35 % (35-52); HEMOGLOBIN 10.6 g/dL (11.5-16.0); LYMPHOCYTES # (AUTO) 0.7 10^3/uL (1.0-4.0); LYMPHOCYTES % (AUTO) 14 % (12-44); MEAN CORPUSCULAR HEMOGLOBIN 28 pg (25-34); MEAN CORPUSCULAR HGB CONC 31 g/dL (32-36); MEAN CORPUSCULAR VOLUME 92 fL (80-99); MEAN PLATELET VOLUME 11.5 fL (9.0-12.2); MONOCYTES # (AUTO) 0.4 10^3/uL (0.0-1.0); MONOCYTES % (AUTO) 8 % (0-12); NEUTROPHILS # (AUTO) 3.9 10^3/uL (1.8-7.8); NEUTROPHILS % (AUTO) 75 % (42-75); PLATELET COUNT 271 10^3/uL (130-400); WHITE BLOOD COUNT 5.2 10^3/uL (4.3-11.0)
[2020-04-09 03:33] LABS: ABG BASE EXCESS 7.9 MMOL/L (-2.5-2.5); ABG OXYGEN SATURATION 89 % (94-100); ABG PCO2 52 MMHG (35-45); ABG PH 7.42 (7.37-7.43); ABG PO2 71 MMHG (79-93); ABG TCO2 33.9 MMOL/L (21.0-31.0)
[2020-04-09 03:39] LABS: ALLENS TEST YES-POS; INSPIRED O2 50%; VENTILATOR YES
[2020-04-09 03:44] LABS: CHLORIDE 97 MMOL/L (98-107); POTASSIUM 3.9 MMOL/L (3.6-5.0); SODIUM 135 MMOL/L (135-145)
[2020-04-09 03:46] LABS: CALCIUM 8.8 MG/DL (8.5-10.1); GLUCOSE 181 MG/DL (70-105); TRIGLYCERIDES 249 MG/DL (<150)
[2020-04-09 03:48] LABS: CARBON DIOXIDE 28 MMOL/L (21-32)
[2020-04-09 03:50] LABS: GFR ESTIMATED > 60
[2020-04-09 03:51] LABS: BUN/CREATININE RATIO 26
[2020-04-09 03:52] LABS: MAGNESIUM 1.9 MG/DL (1.6-2.4)
--- NOTE | 2020-04-09 04:50 | Pulmonary Progress Note ---
Subjective Time Seen by a Provider: 04:47 Subjective/Events-last exam Pt is sedated on vent currently. Sepsis Event Evaluation Height, Weight, BMI Height: '" Weight: lbs. oz. kg; 67.00 BMI Method: Exam Exam Vital Signs Date Time Temp Pulse Resp B/P (MAP) Pulse Ox O2 Delivery O2 Flow Rate FiO2 04/09/20 02:52 38.0 59 24 114/65 90 Mechanical Ventilator 50.00 04/09/20 01:13 60 24 90 50 04/09/20 01:00 60 04/09/20 01:00 38.0 60 24 118/60 (79) 90 Mechanical Ventilator 50.00 04/09/20 00:00 38.1 60 23 120/62 (81) 90 Mechanical Ventilator 50.00 04/08/20 23:00 38.1 67 23 119/62 (81) 90 Mechanical Ventilator 50.00 04/08/20 22:00 38.1 64 23 122/60 (80) 90 Mechanical Ventilator 50.00 04/08/20 21:45 38.1 04/08/20 21:39 Mechanical Ventilator 50.00 04/08/20 21:38 38.1 63 24 120/63 90 Mechanical Ventilator 50.00 04/08/20 21:28 63 24 90 45 04/08/20 21:15 38.1 04/08/20 21:00 90 Mechanical Ventilator 50 04/08/20 21:00 38.1 63 24 126/64 (84) 89 Mechanical Ventilator 45.00 04/08/20 20:00 38.1 63 24 130/65 (85) 89 Mechanical Ventilator 45.00 04/08/20 19:45 38.1 64 23 126/66 (86) 90 Mechanical Ventilator 45.00 04/08/20 19:30 38.1 64 29 125/68 (86) 90 Mechanical Ventilator 45.00 04/08/20 19:15 38.1 65 24 124/66 (84) 90 Mechanical Ventilator 45.00 04/08/20 19:00 38.1 65 23 125/66 (85) 90 Mechanical Ventilator 45.00 04/08/20 19:00 65 04/08/20 18:26 64 24 90 45 04/08/20 14:58 83 24 116/57 92 Mechanical Ventilator 40.00 04/08/20 14:31 83 24 92 35 04/08/20 13:06 Mechanical Ventilator 45.00 04/08/20 12:58 86 24 116/57 04/08/20 12:30 80 04/08/20 09:15 86 24 90 35 04/08/20 09:00 90 Mechanical Ventilator 35 04/08/20 08:52 Mechanical Ventilator 35.00 04/08/20 06:46 92 04/08/20 06:00 37.8 88 24 117/61 (79) 97 Mechanical Ventilator 30.00 04/08/20 05:00 37.6 96 20 118/59 (78) 96 Mechanical Ventilator 30.00 I & O 04/09/20 07:00 Intake Total 2530 ml Output Total 2000 ml Balance 530 ml Height & Weight Height: '" Weight: lbs. oz. kg; 67.00 BMI Method: General Appearance: No Apparent Distress, WD/WN, Chronically ill Neck: Full Range of Motion Respiratory: Lungs Clear, Normal Breath Sounds Cardiovascular: Regular Rate, Rhythm Capillary Refill: Less Than 3 Seconds Extremity: No Pedal Edema Neurologic/Psychiatric: Other (sedated) Results Lab Laboratory Tests 04/08/20 03:00 04/09/20 03:00 Assessment/Plan Assessment/Plan Acute respiratory failure secondary to COVID -19 with PNA with ARDS -Intubated 03/27 -s/p Remdesivir, CVP -Currently on Precedex and Fentanyl -Hold fentanyl and will attempt to wean today. -Will give 40mg of Lasix. -Transfer to LTAC if possible. Family wants LTAC in [place] -SW was consulted 04/08. -Labs pending -Continue TF PEEP 8 currently -Decadron -Change IVF to LR and decrease to 30cc/hr -Check BNP, PCT, and Ddimer -LR currently at 30cc/hr UTI -Currently on Merrem and Diflucan -Improving leukocytosis Morbid obesity Debility GI/DVT ppx -Lovenox ppx WINIFRED LEON DO Apr 09, 2020 04:50
[2020-04-09] MEDS ORDERED: FUROSEMIDE 40 MG/4 ML INJ (LASIX) ONE (04:57)
[2020-04-09] MEDS ORDERED: FUROSEMIDE 40 MG/4 ML INJ (LASIX) IVP ONE (05:15)
[2020-04-09] MEDS: LEVOTHYROXINE 100 MCG (LEVOTHROID) TAB PO SCH (05:48)
[2020-04-09] MEDS: POTASSIUM CL 10MEQ/50ML IVPB 50 ML IV SCH ×4 (05:48→06:28)
[2020-04-09] MEDS: LACTATED RINGERS 1,000 ML IV SCH (05:49)
[2020-04-09] MEDS: KCL 20 MEQ TAB (K-DUR) PO SCH (05:55)
[2020-04-09] MEDS: MAGNESIUM 1 GM/100 ML IVPB 100 ML IV SCH (05:55)
[2020-04-09] MEDS: ARTIFICIAL TEARS OINT (LACRI-LUBE) 3.5 GM TUBE OU SCH ×2 (07:45→20:06)
[2020-04-09] MEDS: DOCUSATE SODIUM 10 MG/ML 10 ML UDC (COLACE) PO SCH ×2 (07:45→20:06)
[2020-04-09] MEDS: ENOXAPARIN 60 MG/0.6 ML (LOVENOX) SYR SC SCH ×2 (07:45→20:06)
[2020-04-09] MEDS: METOCLOPRAMIDE INJ 10 MG/2 ML (REGLAN) IVP SCH ×2 (07:45→20:06)
[2020-04-09] MEDS: FAMOTIDINE 20MG/2ML IV (PEPCID) IV SCH ×2 (07:45→20:05)
[2020-04-09] MEDS: MICONAZOLE NITRATE 2% CRM 30 GM TP SCH ×2 (07:46→20:07)
--- NOTE | 2020-04-09 08:21 | Diagnostic Imaging Report ---
Portable semierect AP chest at 228 hours. INDICATION: Hypoxia. FINDINGS: The prior exam of 04/08/2020 noted diffuse alveolar/interstitial pulmonary infiltrates bilaterally. On this study, there does seem to have been some increase in the density in both lung bases since the prior exam. The heart is stable in size. The mediastinum is not widened. The osseous structures are intact. The supportive tubes and lines seem similar in position to the prior exam. IMPRESSION: The appearance of the chest has worsened somewhat since the prior exam as there is slightly greater involvement of both lung bases by pneumonia/atelectasis. A follow-up study would be recommended for continued evaluation. Dictated by: Dictated on workstation # [id number]
--- NOTE | 2020-04-09 08:25 | NUR ---
PT OPENS EYES, WILL NOT MAKE EYE CONTACT. NOT FOLLOWING COMMANDS. O2 SAT MID-UPPER 80S ON 50% FIO2, INCREASED TO 100%. SATS MID 90'S ON 100%. DR LEON NOTIFIED. NEW ORDERS RECEIVED TO RE-SEDATE PT.
[2020-04-09 09:14] VITALS: BP 137/68
--- NOTE | 2020-04-09 10:27 | Physical Therapy Progress Note ---
Therapy Progress Note PROM bilateral extremities all planes in supine with repositioning. Restraints in place bilateral UE. AIME GIFFORD PT Apr 09, 2020 10:27
--- NOTE | 2020-04-09 10:44 | Diagnostic Imaging Report ---
EXAMINATION: AP portable chest INDICATION: Hypoxia. Endotracheal tube placement. COMPARISON: Multiple priors, most recent performed earlier same day. FINDINGS: Evaluation is limited secondary to suboptimal technique. Endotracheal tube is in place, with distal tip near the candice, directed towards the right mainstem bronchus. Enteric tube also remains in place, with distal tip in the gastric body. Right upper extremity PICC is unchanged in position, with distal tip overlying the right atrium. No significant change in interstitial and alveolar opacities in both lungs, more pronounced in the mid and lower lungs. There are small bilateral pleural effusions, unchanged. No pneumothorax is identified. Mediastinal contours are unchanged, allowing for mild patient rotation. No acute osseous abnormality is appreciated. Spinal stimulator is again demonstrated. IMPRESSION: No significant change in bilateral airspace disease, reflecting pneumonia, and/or edema. Unchanged small bilateral pleural effusions. Endotracheal tube tip is near the level of the candice, directed towards the right mainstem bronchus. Recommend partial retraction by approximately 2 to 4 cm for optimal positioning. Called to Rosio at 10:34 a.m. by cvb. Dictated by: Dictated on workstation # [id number]
--- NOTE | 2020-04-09 12:08 | Diagnostic Imaging Report ---
Portable semierect AP chest at 11:09. Indication: Tube placement The exam performed earlier today at 9:58 AM noted that the ET tube was near the level of the candice. In the interval since the prior exam the ET tube has been slightly retracted. The tip now lies 1.3 cm cephalad to the candice. It could be retracted another 1-2 cm. The overall appearance of the chest has not changed significantly otherwise. Impression: 1. There has been slight retraction of the ET tube. The ET tube could be retracted another 1-2 cm. 2. The overall appearance the chest is otherwise stable. Called to Whitney at 12:05 p.m. by cvb. Dictated by: Dictated on workstation # [id number]
[2020-04-09 14:50] VITALS: BP 117/63
--- NOTE | 2020-04-09 15:03 | NUR ---
PT'S SISTER YUNIER UPDATED ON CONDITION BY PHONE. NO QUESTIONS/CONCERNS VOICED.
--- NOTE | 2020-04-09 15:45 | NUR ---
Note pt currently receiving Pulmocare via 150ml bolus feeds q4h with 30ml water flushes before/after each bolus. Note pt is at goal feeding at this time. Will continue to follow and reassess as pt needs, intake, and status change. Srinivasa Franks, MS RD LD [phone] cell
--- NOTE | 2020-04-09 15:45 | Diagnostic Imaging Report ---
EXAMINATION: Portable erect AP chest at 03:17 p.m. INDICATION: Tube placement. FINDINGS: The prior exam performed earlier today at 11:09 a.m. noted that the ET tube tip had been retracted since the previous study of 09:56 a.m. The tip of the tube was approximately 1.3 cm cephalad to the candice. In the interval since the prior exam, the ET tube tip has been further retracted and now lies approximately 3.2 cm cephalad to the candice. The overall appearance of the chest has not changed significantly, otherwise. No new abnormality has developed. IMPRESSION: 1. In the interval since the prior exam, the ET tube tip has been retracted and now overlies the midportion of the tracheal air shadow. 2. The overall appearance of the chest is otherwise stable. A follow-up exam would be recommended for continued evaluation. Dictated by: Dictated on workstation # [id number]
--- NOTE | 2020-04-09 16:16 | NUR ---
MOST RECENT CXRAY SENT TO DR LEON, INFORMED PT IS NOW REQUIRING 90%FIO2. NO NEW ORDERS RECEIVED.
[2020-04-09 18:32] VITALS: BP 113/61
[2020-04-09] MEDS: APAP 325 MG/10.15 ML LIQ (TYLENOL) UDC PO PRN (21:52)
[2020-04-09 22:23] VITALS: BP 110/60
[2020-04-10] MEDS: DexMEDEtomidine PRE MIX 100 ML IV SCH (02:10)
[2020-04-10] MEDS: fentaNYL DRIP PRE-MIX 250 ML IV SCH ×5 (02:11→20:00)
[2020-04-10 02:20] VITALS: BP 121/68
[2020-04-10] MEDS: RT-ALBUTEROL INHALER HFA (VENTOLIN HFA) 18 GM IH SCH ×6 (02:20→22:25)
[2020-04-10] MEDS: IPRATROPIUM INHALER (ATROVENT) 12.9 GM INH SCH ×6 (02:20→22:25)
[2020-04-10 03:24] LABS: BASOPHILS % (AUTO) 1 % (0-10); EOSINOPHILS % (AUTO) 1 % (0-10); HEMATOCRIT 33 % (35-52); HEMOGLOBIN 10.2 g/dL (11.5-16.0); LYMPHOCYTES # (AUTO) 0.8 10^3/uL (1.0-4.0); LYMPHOCYTES % (AUTO) 12 % (12-44); MEAN CORPUSCULAR HEMOGLOBIN 28 pg (25-34); MEAN CORPUSCULAR HGB CONC 31 g/dL (32-36); MEAN CORPUSCULAR VOLUME 92 fL (80-99); MEAN PLATELET VOLUME 11.2 fL (9.0-12.2); MONOCYTES # (AUTO) 0.5 10^3/uL (0.0-1.0); MONOCYTES % (AUTO) 7 % (0-12); NEUTROPHILS % (AUTO) 79 % (42-75); PLATELET COUNT 246 10^3/uL (130-400); WHITE BLOOD COUNT 6.3 10^3/uL (4.3-11.0)
[2020-04-10 03:27] LABS: ABG BASE EXCESS 8.6 MMOL/L (-2.5-2.5); ABG OXYGEN SATURATION 93 % (94-100); ABG PCO2 55 MMHG (35-45); ABG PO2 72 MMHG (79-93)
[2020-04-10 03:29] LABS: ALLENS TEST YES-POS
[2020-04-10 03:30] LABS: INSPIRED O2 90%; PATIENT TEMP 37.9; VENTILATOR YES
[2020-04-10 03:43] LABS: CHLORIDE 98 MMOL/L (98-107); POTASSIUM 4.1 MMOL/L (3.6-5.0); SODIUM 135 MMOL/L (135-145)
[2020-04-10 03:44] LABS: CALCIUM 8.4 MG/DL (8.5-10.1); GLUCOSE 168 MG/DL (70-105)
[2020-04-10 03:46] LABS: CARBON DIOXIDE 30 MMOL/L (21-32)
[2020-04-10 03:48] LABS: CREATININE SERUM 0.66 MG/DL (0.60-1.30); GFR ESTIMATED > 60; PHOSPHORUS 3.2 MG/DL (2.3-4.7)
[2020-04-10 03:49] LABS: BUN/CREATININE RATIO 23
[2020-04-10 03:51] LABS: MAGNESIUM 1.5 MG/DL (1.6-2.4)
[2020-04-10] MEDS: MAGNESIUM 1 GM/100 ML IVPB 100 ML IV SCH ×3 (03:52→04:17)
[2020-04-10] MEDS: KCL 20 MEQ TAB (K-DUR) PO SCH (03:52)
[2020-04-10] MEDS: POTASSIUM CL 10MEQ/50ML IVPB 50 ML IV SCH ×3 (03:52→06:07)
[2020-04-10] MEDS: inSUlin ASPART (NovoLOG) 1 UNIT/0.01 ML (CHARGE PER UNIT) SC SCH ×4 (03:52→23:23)
[2020-04-10] MEDS: LACTATED RINGERS 1,000 ML IV SCH (04:17)
[2020-04-10] MEDS: LEVOTHYROXINE 100 MCG (LEVOTHROID) TAB PO SCH (04:17)
[2020-04-10] MEDS ORDERED: FUROSEMIDE 40 MG/4 ML INJ (LASIX) IVP ONE (05:15)
--- NOTE | 2020-04-10 05:18 | Pulmonary Progress Note ---
Subjective Time Seen by a Provider: 05:17 Subjective/Events-last exam sedated on vent. Sepsis Event Evaluation Height, Weight, BMI Height: '" Weight: lbs. oz. kg; 67.00 BMI Method: Exam Exam Vital Signs Date Time Temp Pulse Resp B/P (MAP) Pulse Ox O2 Delivery O2 Flow Rate FiO2 04/10/20 04:00 37.7 61 34 115/65 (82) 89 Mechanical Ventilator 100.00 04/10/20 03:25 Mechanical Ventilator 100.00 04/10/20 03:00 37.9 65 23 125/68 (87) 89 Mechanical Ventilator 90.00 04/10/20 02:20 58 24 90 90 04/10/20 02:10 58 99/59 04/10/20 02:00 38.0 58 23 99/59 (72) 90 Mechanical Ventilator 90.00 04/10/20 01:00 38.1 61 24 107/59 (75) 89 Mechanical Ventilator 90.00 04/10/20 00:00 38.3 60 23 103/56 (72) 90 Mechanical Ventilator 90.00 04/09/20 23:00 38.3 61 23 108/58 (75) 90 Mechanical Ventilator 90.00 04/09/20 22:23 55 24 91 90 04/09/20 22:00 38.3 61 24 110/60 (77) 90 Mechanical Ventilator 90.00 04/09/20 21:52 38.3 04/09/20 21:06 Mechanical Ventilator 90.00 04/09/20 21:00 93 Mechanical Ventilator 90 04/09/20 21:00 38.2 71 23 117/64 (81) 91 Mechanical Ventilator 90.00 04/09/20 20:05 61 115/63 04/09/20 20:00 38.2 61 23 115/63 (80) 92 Mechanical Ventilator 90.00 04/09/20 19:45 38.2 61 23 116/62 (79) 92 Mechanical Ventilator 90.00 04/09/20 19:30 38.2 61 24 117/64 (80) 91 Mechanical Ventilator 90.00 04/09/20 19:15 38.2 60 24 114/61 (77) 91 Mechanical Ventilator 90.00 04/09/20 19:00 60 04/09/20 19:00 38.2 60 24 111/62 (77) 91 Mechanical Ventilator 90.00 04/09/20 18:32 61 24 91 90 04/09/20 18:00 38.2 62 24 106/61 (76) 90 Mechanical Ventilator 90.00 04/09/20 17:00 38.1 61 24 103/57 (72) 92 Mechanical Ventilator 90.00 04/09/20 16:14 Mechanical Ventilator 90.00 04/09/20 16:00 38.1 62 24 113/62 (79) 92 Mechanical Ventilator 100.00 04/09/20 15:34 Mechanical Ventilator 100.00 04/09/20 15:12 Mechanical Ventilator 70.00 04/09/20 15:00 38.1 53 23 107/59 (75) 94 Mechanical Ventilator 60.00 04/09/20 14:50 59 24 91 50 04/09/20 14:49 Mechanical Ventilator 50.00 04/09/20 14:37 37.9 60 24 113/62 92 Mechanical Ventilator 50.00 04/09/20 14:00 37.9 60 24 113/62 (79) 92 Mechanical Ventilator 60.00 04/09/20 13:10 Mechanical Ventilator 60.00 04/09/20 13:00 37.8 60 23 121/63 (82) 92 Mechanical Ventilator 80.00 04/09/20 12:00 37.8 56 23 145/68 (93) 94 Mechanical Ventilator 80.00 04/09/20 11:45 56 04/09/20 11:00 37.8 58 24 146/70 (95) 93 Mechanical Ventilator 80.00 04/09/20 10:00 37.8 63 23 116/57 (76) 93 Mechanical Ventilator 80.00 04/09/20 09:37 Mechanical Ventilator 80.00 04/09/20 09:36 71 25 137/68 93 Mechanical Ventilator 80.00 04/09/20 09:14 71 25 93 80 04/09/20 09:00 93 Mechanical Ventilator 80 04/09/20 09:00 37.7 59 25 103/53 (70) 92 Mechanical Ventilator 80.00 04/09/20 08:33 Mechanical Ventilator 80.00 04/09/20 08:00 37.8 71 21 126/69 (88) 92 Mechanical Ventilator 100.00 04/09/20 07:50 Mechanical Ventilator 100.00 04/09/20 07:27 58 04/09/20 07:00 37.8 57 24 106/56 (73) 91 Mechanical Ventilator 50.00 04/09/20 06:15 37.8 57 23 117/67 (84) 91 Mechanical Ventilator 50.00 04/09/20 05:36 37.8 58 24 122/65 (84) 91 Mechanical Ventilator 50.00 I & O 04/10/20 07:00 Intake Total 1950 ml Output Total 2755 ml Balance -805 ml Height & Weight Height: '" Weight: lbs. oz. kg; 67.00 BMI Method: General Appearance: WD/WN, Chronically ill Neck: Full Range of Motion Respiratory: Lungs Clear, Normal Breath Sounds Cardiovascular: Regular Rate, Rhythm Capillary Refill: Less Than 3 Seconds Extremity: No Pedal Edema Neurologic/Psychiatric: Other (sedated) Results Lab Laboratory Tests 04/09/20 03:00 04/10/20 03:00 Assessment/Plan Assessment/Plan Acute respiratory failure secondary to COVID -19 with PNA with ARDS -Intubated 03/27 -s/p Remdesivir, CVP -Currently on Precedex and Fentanyl -Change precedex to Versed pt is not ready for weaning at this time. -Will give 40mg of Lasix. -Vent setting 370, 24, peep of 8 -Increase PEEP to 12 currently requiring 100% oxygen -SW was consulted 04/08. -Resume proning -Labs pending -Continue TF -Decadron -Change IVF to LR and decrease to 30cc/hr -Check BNP, PCT, and Ddimer -LR currently at 30cc/hr UTI -Currently on Merrem and Diflucan -Improving leukocytosis Morbid obesity Debility GI/DVT ppx -Lovenox ppx WINIFRED LEON DO Apr 10, 2020 05:17
[2020-04-10] MEDS ORDERED: FUROSEMIDE 40 MG/4 ML INJ (LASIX) ONE (05:19)
[2020-04-10] MEDS ORDERED: MIDAZOLAM DRIP PRE-MIX 100 ML IV SCH (05:30)
[2020-04-10] MEDS: MIDAZOLAM DRIP PRE-MIX 100 ML IV SCH ×2 (06:06→17:18)
[2020-04-10 07:17] VITALS: BP 124/70
--- NOTE | 2020-04-10 08:20 | Diagnostic Imaging Report ---
Portable erect AP chest at 236 hours. INDICATION: Respiratory distress. FINDINGS: The cardiomegaly and the bibasilar atelectasis/infiltrate and bilateral pleural effusions seen on the prior exam of 04/09/2020 are again evident and not significantly changed. There is still alveolar/interstitial infiltrates in both perihilar regions as well. The density in the right perihilar region may be somewhat greater than on the prior exam. The mediastinum is not widened. The osseous structures are intact. The supportive tubes and lines are similar in position to the prior exam. IMPRESSION: The overall appearance of the chest has not changed significantly since the prior exam. There may be somewhat greater involvement of the right perihilar region by pneumonia/atelectasis, however. Dictated by: Dictated on workstation # [id number]
[2020-04-10] MEDS: DOCUSATE SODIUM 10 MG/ML 10 ML UDC (COLACE) PO SCH ×2 (08:50→20:00)
[2020-04-10] MEDS: ARTIFICIAL TEARS OINT (LACRI-LUBE) 3.5 GM TUBE OU SCH ×2 (08:50→20:00)
[2020-04-10] MEDS: ENOXAPARIN 60 MG/0.6 ML (LOVENOX) SYR SC SCH ×2 (08:50→20:00)
[2020-04-10] MEDS: FAMOTIDINE 20MG/2ML IV (PEPCID) IV SCH ×2 (08:50→20:00)
[2020-04-10] MEDS: METOCLOPRAMIDE INJ 10 MG/2 ML (REGLAN) IVP SCH ×2 (08:50→20:00)
[2020-04-10] MEDS: MICONAZOLE NITRATE 2% CRM 30 GM TP SCH ×2 (08:51→20:00)
[2020-04-10] MEDS: APAP 325 MG/10.15 ML LIQ (TYLENOL) UDC PO PRN (08:57)
[2020-04-10 10:43] VITALS: BP 107/69
--- NOTE | 2020-04-10 11:37 | Physical Therapy Progress Note ---
Therapy Progress Note PT performed PROM to bilateral extremities, restraints on at the end of tx. Proper PPE donned before entering room. Patient O2 sats did not decrease during ROM. HU JOYA PT Apr 10, 2020 11:37
--- NOTE | 2020-04-10 13:35 | NUR ---
Note pt currently receiving Pulmocare via 150ml bolus feeds q4h with 30ml water flushes before/after each bolus. Note pt is at goal feeding at this time. Will continue to follow and reassess as pt needs, intake, and status change. Srinivasa Franks, MS RD LD [phone] cell
--- NOTE | 2020-04-10 15:00 | NUR ---
Updated Adela, pt family at this time.
[2020-04-10 15:27] VITALS: BP 112/72
--- NOTE | 2020-04-10 17:59 | NUR ---
Held two of pt's feedings today due to suctioning back tube feeding from lungs. Will report to assistant casino shift manager so they can check this as well before feeding.
[2020-04-10 18:58] VITALS: BP 112/76
[2020-04-10 22:25] VITALS: BP 122/76
[2020-04-11] MEDS: fentaNYL DRIP PRE-MIX 250 ML IV SCH ×5 (00:56→20:34)
[2020-04-11] MEDS: MIDAZOLAM DRIP PRE-MIX 100 ML IV SCH ×3 (00:57→16:18)
[2020-04-11 02:33] LABS: ABG BASE EXCESS 4.7 MMOL/L (-2.5-2.5); ABG OXYGEN SATURATION 99 % (94-100); ABG PCO2 55 MMHG (35-45); ABG PH 7.35 (7.37-7.43); ABG PO2 149 MMHG (79-93); ABG TCO2 31.6 MMOL/L (21.0-31.0)
[2020-04-11 02:34] LABS: BASOPHILS % (AUTO) 0 % (0-10); EOSINOPHILS # (AUTO) 0.1 10^3/uL (0.0-0.3); EOSINOPHILS % (AUTO) 1 % (0-10); HEMATOCRIT 35 % (35-52); HEMOGLOBIN 10.9 g/dL (11.5-16.0); LYMPHOCYTES # (AUTO) 0.8 10^3/uL (1.0-4.0); LYMPHOCYTES % (AUTO) 12 % (12-44); MEAN CORPUSCULAR HEMOGLOBIN 28 pg (25-34); MEAN CORPUSCULAR HGB CONC 31 g/dL (32-36); MEAN CORPUSCULAR VOLUME 90 fL (80-99); MEAN PLATELET VOLUME 11.1 fL (9.0-12.2); MONOCYTES # (AUTO) 0.6 10^3/uL (0.0-1.0); MONOCYTES % (AUTO) 8 % (0-12); NEUTROPHILS # (AUTO) 5.4 10^3/uL (1.8-7.8); NEUTROPHILS % (AUTO) 78 % (42-75); PLATELET COUNT 263 10^3/uL (130-400); WHITE BLOOD COUNT 6.9 10^3/uL (4.3-11.0)
[2020-04-11 02:39] LABS: ALLENS TEST YES-POS; INSPIRED O2 90%; PATIENT TEMP 37.3; VENTILATOR YES
[2020-04-11] MEDS: IPRATROPIUM INHALER (ATROVENT) 12.9 GM INH SCH ×6 (02:49→22:33)
[2020-04-11] MEDS: RT-ALBUTEROL INHALER HFA (VENTOLIN HFA) 18 GM IH SCH ×6 (02:49→22:32)
[2020-04-11 02:52] LABS: BUN/CREATININE RATIO 24; CALCIUM 8.7 MG/DL (8.5-10.1); CARBON DIOXIDE 27 MMOL/L (21-32); CHLORIDE 97 MMOL/L (98-107); CREATININE SERUM 0.67 MG/DL (0.60-1.30); GFR ESTIMATED > 60; GLUCOSE 153 MG/DL (70-105); MAGNESIUM 1.6 MG/DL (1.6-2.4); PHOSPHORUS 4.3 MG/DL (2.3-4.7); SODIUM 136 MMOL/L (135-145); TRIGLYCERIDES 277 MG/DL (<150)
[2020-04-11] MEDS: POTASSIUM CL 10MEQ/50ML IVPB 50 ML IV SCH (03:06)
[2020-04-11] MEDS: MAGNESIUM 1 GM/100 ML IVPB 100 ML IV SCH ×2 (03:06→03:47)
[2020-04-11] MEDS: inSUlin ASPART (NovoLOG) 1 UNIT/0.01 ML (CHARGE PER UNIT) SC SCH ×4 (03:07→23:37)
[2020-04-11] MEDS: KCL 20 MEQ TAB (K-DUR) PO SCH (03:07)
[2020-04-11] MEDS: LACTATED RINGERS 1,000 ML IV SCH (03:47)
[2020-04-11] MEDS: LEVOTHYROXINE 100 MCG (LEVOTHROID) TAB PO SCH (05:56)
--- NOTE | 2020-04-11 06:24 | Pulmonary Progress Note ---
Subjective Time Seen by a Provider: 06:19 Sepsis Event Evaluation Height, Weight, BMI Height: '" Weight: lbs. oz. kg; 67.00 BMI Method: Exam Exam Vital Signs Date Time Temp Pulse Resp B/P (MAP) Pulse Ox O2 Delivery O2 Flow Rate FiO2 04/11/20 05:00 37.2 77 24 108/62 (77) 95 Mechanical Ventilator 90.00 04/11/20 04:00 37.1 80 23 112/64 (80) 95 Mechanical Ventilator 90.00 04/11/20 03:00 37.2 88 24 118/67 (84) 95 Mechanical Ventilator 90.00 04/11/20 02:49 85 24 94 90 04/11/20 02:00 37.4 84 24 131/74 (93) 95 Mechanical Ventilator 90.00 04/11/20 01:00 37.5 81 23 129/78 (95) 93 Mechanical Ventilator 90.00 04/11/20 01:00 81 04/11/20 00:57 80 129/79 04/11/20 00:00 37.7 81 23 131/77 (95) 93 Mechanical Ventilator 90.00 04/10/20 23:00 37.7 81 23 129/77 (94) 91 Mechanical Ventilator 90.00 04/10/20 22:25 81 24 90 90 04/10/20 22:00 37.7 80 23 125/75 (92) 91 Mechanical Ventilator 90.00 04/10/20 21:00 37.7 80 24 122/76 (91) 90 Mechanical Ventilator 90.00 04/10/20 21:00 93 Mechanical Ventilator 90 04/10/20 20:27 Mechanical Ventilator 90.00 04/10/20 20:00 37.6 80 24 124/76 (92) 90 Mechanical Ventilator 90.00 04/10/20 19:00 37.6 87 23 121/76 (91) 90 Mechanical Ventilator 90.00 04/10/20 19:00 88 04/10/20 18:58 77 24 90 90 04/10/20 18:00 37.3 75 23 122/80 (94) 91 Mechanical Ventilator 100.00 04/10/20 17:18 73 24 119/75 04/10/20 17:00 37.3 73 24 118/75 (89) 92 Mechanical Ventilator 100.00 04/10/20 16:00 37.3 71 24 112/74 (87) 92 Mechanical Ventilator 100.00 04/10/20 15:27 70 24 93 90 04/10/20 15:00 37.3 70 24 113/73 (86) 92 Mechanical Ventilator 100.00 04/10/20 14:00 37.3 67 23 113/75 (88) 93 Mechanical Ventilator 100.00 04/10/20 13:00 37.3 65 24 109/70 (83) 93 Mechanical Ventilator 100.00 04/10/20 12:22 63 04/10/20 12:00 37.3 62 24 109/71 (84) 94 Mechanical Ventilator 100.00 04/10/20 11:00 37.4 62 24 105/71 (82) 94 Mechanical Ventilator 100.00 04/10/20 10:43 64 24 94 90 04/10/20 10:00 37.4 151/84 (106) 91 Mechanical Ventilator 100.00 04/10/20 09:00 93 Mechanical Ventilator 95 04/10/20 09:00 37.5 58 23 118/75 (89) 94 Mechanical Ventilator 100.00 04/10/20 08:57 37.5 04/10/20 08:00 37.5 57 23 125/71 (89) 93 Mechanical Ventilator 100.00 04/10/20 07:17 57 24 93 90 04/10/20 07:00 37.4 53 24 122/70 (87) 93 Mechanical Ventilator 100.00 04/10/20 06:47 52 I & O 04/11/20 06:59 Intake Total 1190 ml Output Total 2500 ml Balance -1310 ml Height & Weight Height: '" Weight: lbs. oz. kg; 67.00 BMI Method: General Appearance: No Apparent Distress, WD/WN, Moderate Distress Neck: Full Range of Motion Respiratory: No Normal Breath Sounds; Respiratory Distress, Rhonci (Coarse rhonchus breath sounds throughout bilateral lung fuller) Cardiovascular: Regular Rate, Rhythm, Tachycardia Capillary Refill: Less Than 3 Seconds Extremity: Other (1-2+ edema bilateral lower extremities. Both lower extremities are tender to palpation) Neurologic/Psychiatric: Alert, Oriented x3, No Motor/Sensory Deficits, Normal Mood/Affect, solar/renewable energy sales II-XII Norm as Tested Results Lab Laboratory Tests 04/10/20 03:00 04/11/20 02:10 Assessment/Plan Assessment/Plan Acute respiratory failure secondary to COVID -19 with PNA with ARDS -Intubated 03/27 -s/p Remdesivir, CVP -Currently on Precedex and Fentanyl -Change precedex to Versed pt is not ready for weaning at this time. -Will give 40mg of Lasix. -Vent setting 370, 24, peep -- increase from 12 to 16. currently requiring 90% oxygen -SW was consulted 04/08. -Resume proning -Labs pending -Continue TF -Decadron -Change IVF to LR and decrease to 30cc/hr -Check BNP, PCT, and Ddimer -LR currently at 30cc/hr PNA - pt is requiring 90% oxygen and more PEEP -PCT is up -Restart Merrem -Repeat cuadra cultures - -Improving leukocytosis Morbid obesity Debility GI/DVT ppx -Lovenox ppx WINIFRED LEON DO Apr 11, 2020 06:24
[2020-04-11] MEDS ORDERED: WATER (STERILE) FOR INJECTION 10 ML ONE (06:25)
[2020-04-11] MEDS ORDERED: MEROPENEM 500 MG VIAL (MERREM) IV ONE (06:25)
[2020-04-11] MEDS ORDERED: MEROPENEM 1,000 MG in WATER (STERILE) FOR INJECTION 20 ML IV SCH (06:30)
[2020-04-11] MEDS: MEROPENEM 500 MG/SWFI 10 ML IV PUSH IV SCH ×4 (06:45→14:00)
[2020-04-11 07:04] VITALS: BP 119/69
[2020-04-11 07:09] LABS: BILIRUBIN,URINE NEGATIVE (NEGATIVE); CLARITY,URINE SL CLOUDY; COLOR,URINE YELLOW; GLUCOSE, URINE (UA) NEGATIVE (NEGATIVE); KETONES,URINE 1+ (NEGATIVE); LEUKOCYTE ESTERASE ,URINE TRACE (NEGATIVE); NITRITE,URINE POSITIVE (NEGATIVE); PROTEIN,URINE NEGATIVE (NEGATIVE)
[2020-04-11 07:22] LABS: AMORPHOUS SEDIMENT,UR LARGE AMOR URATES /LPF; BACTERIA,URINE MODERATE /HPF; YEAST,URINE FEW /HPF
--- NOTE | 2020-04-11 07:28 | Diagnostic Imaging Report ---
CHEST 1 VIEW, AP/PA ONLY Indication: Hypoxia Comparison: 04/10/2020 Findings: Stable ET and enteric tubes. Diffuse bilateral pulmonary opacities have progressed. Potential small left pleural effusion is unchanged. No pneumothorax. Stable right PICC. Grossly stable cardiomediastinal silhouette. Impression: 1. Worsening of bilateral pulmonary opacities which could be due to edema and/or ARDS superimposed on infection. Dictated by: Dictated on workstation # [id number]
[2020-04-11] MEDS: DOCUSATE SODIUM 10 MG/ML 10 ML UDC (COLACE) PO SCH ×2 (08:57→20:30)
[2020-04-11] MEDS: METOCLOPRAMIDE INJ 10 MG/2 ML (REGLAN) IVP SCH ×2 (08:57→20:30)
[2020-04-11] MEDS: ENOXAPARIN 60 MG/0.6 ML (LOVENOX) SYR SC SCH ×2 (08:57→20:30)
[2020-04-11] MEDS: FAMOTIDINE 20MG/2ML IV (PEPCID) IV SCH ×2 (08:57→20:30)
[2020-04-11] MEDS: ARTIFICIAL TEARS OINT (LACRI-LUBE) 3.5 GM TUBE OU SCH ×2 (08:58→20:32)
[2020-04-11] MEDS: APAP 325 MG/10.15 ML LIQ (TYLENOL) UDC PO PRN (08:58)
[2020-04-11] MEDS: MICONAZOLE NITRATE 2% CRM 30 GM TP SCH ×2 (08:59→21:34)
--- NOTE | 2020-04-11 09:31 | Physical Therapy Progress Note ---
Therapy Progress Note PT performed PROM to bilateral extremities, has increasing tightness in BLE, restraints on at the end of tx. Proper PPE donned before entering room. Patient O2 sats did not decrease during ROM. HU JOYA PT Apr 11, 2020 09:31
--- NOTE | 2020-04-11 09:36 | NUR ---
CM/SS: Referral Sent to [facility]. [phone] - Referral line request a face sheet to be faxed. Face sheet sent/faxed [phone].
--- NOTE | 2020-04-11 09:42 | NUR ---
CM/SS: 04/08/2020 - Referral sent to [facility] - Information/clinicals faxed. At this time they do not have an open bed.
--- NOTE | 2020-04-11 10:31 | Diagnostic Imaging Report ---
Indication: OG tube placement. Frontal chest obtained at 1004 a.m. and compared to 0141 a.m. the same day. ET tube tip overlies mid trachea. Right-sided PICC line unchanged tip overlying the SVC. OG tube tip is below the film, recommend abdominal film. There is cardiomegaly and central vascular congestion again noted with bibasilar atelectatic change and/or infiltrate. IMPRESSION: OG tube has been advanced compared to the prior study, tip is not well seen and appears to be below the film. ET tube and PICC line unchanged. No change in central vascular congestion and bibasilar infiltrate versus atelectasis. Dictated by: Dictated on workstation # [id number]
[2020-04-11 10:48] VITALS: BP 119/69
[2020-04-11] MEDS: DexMEDEtomidine PRE MIX 100 ML IV SCH (12:41)
--- NOTE | 2020-04-11 14:21 | NUR ---
Note pt had some feeding issues since update on 04/10. Pt had TF suctioned from her lungs. Would recommend restarting TF back at 60ml bolus feeds q4h when medically able. Flush with 30ml free water before/after each bolus feed. Recommend increase TF by 30ml q8h as medically able and as tolerated toward goal rate of 150ml bolus feeds q4h. Will continue to follow and reassess as pt needs, intake, and status change. Srinivasa Franks MS RD LD [phone] cell
[2020-04-11 14:51] VITALS: BP 119/69
--- NOTE | 2020-04-11 15:47 | NUR ---
CM/SS: CALVIN Sim called to update sister of pt Adela on pt's current health status. This worker is able to speak with Adela once the nurse is finished with the update. She is updated on the referrals that have been sent out. Thomas Hwang [facility], currently no beds, [facility]. Note: they have about 26 on a wait list, and report that their priority is from the [facility], and it is unlikely that they will be taking a referral from [facility] due to the need in their area. The intake person asked that I send the referral. This worker sent the information. They will work to process it. Also, a referral was sent to [facility] in [place]. They too have a wait list and will process the request. Sister is also reminded that pt will need to be medically in a better place, prior to being transferred to a assisted acute hospital. She verbalizes understanding and shares she is not sure if her going to [place] is such a good idea due to it being far away. This worker shares with her that she will follow up with her at a later time. She thanks this worker for calling.
[2020-04-11 19:05] VITALS: BP 134/78
[2020-04-11] MEDS: MEROPENEM 500 MG in WATER (STERILE) FOR INJECTION 10 ML IV SCH (20:31)
[2020-04-11 22:32] VITALS: BP 149/77
[2020-04-12] MEDS: fentaNYL DRIP PRE-MIX 250 ML IV SCH ×5 (01:03→20:52)
[2020-04-12] MEDS: MIDAZOLAM DRIP PRE-MIX 100 ML IV SCH ×2 (01:03→15:46)
[2020-04-12 01:25] VITALS: BP 149/84
[2020-04-12] MEDS: RT-ALBUTEROL INHALER HFA (VENTOLIN HFA) 18 GM IH SCH ×6 (01:25→22:13)
[2020-04-12] MEDS: IPRATROPIUM INHALER (ATROVENT) 12.9 GM INH SCH ×6 (01:26→22:14)
[2020-04-12 01:54] LABS: ABG BASE EXCESS 3.9 MMOL/L (-2.5-2.5); ABG OXYGEN SATURATION 99 % (94-100); ABG PCO2 55 MMHG (35-45); ABG PH 7.35 (7.37-7.43); ABG PO2 211 MMHG (79-93); ABG TCO2 30.9 MMOL/L (21.0-31.0)
[2020-04-12] MEDS: MEROPENEM 500 MG in WATER (STERILE) FOR INJECTION 10 ML IV SCH ×4 (01:54→20:18)
[2020-04-12 01:57] LABS: ALLENS TEST ARTLINE; INSPIRED O2 85%; PATIENT TEMP 36.8; VENTILATOR YES
[2020-04-12 02:19] LABS: BASOPHILS % (AUTO) 1 % (0-10); EOSINOPHILS # (AUTO) 0.1 10^3/uL (0.0-0.3); EOSINOPHILS % (AUTO) 1 % (0-10); HEMATOCRIT 33 % (35-52); HEMOGLOBIN 10.3 g/dL (11.5-16.0); LYMPHOCYTES # (AUTO) 0.7 10^3/uL (1.0-4.0); LYMPHOCYTES % (AUTO) 11 % (12-44); MEAN CORPUSCULAR HEMOGLOBIN 28 pg (25-34); MEAN CORPUSCULAR HGB CONC 31 g/dL (32-36); MEAN CORPUSCULAR VOLUME 90 fL (80-99); MEAN PLATELET VOLUME 11.1 fL (9.0-12.2); MONOCYTES # (AUTO) 0.6 10^3/uL (0.0-1.0); MONOCYTES % (AUTO) 10 % (0-12); NEUTROPHILS % (AUTO) 77 % (42-75); PLATELET COUNT 255 10^3/uL (130-400); WHITE BLOOD COUNT 6.4 10^3/uL (4.3-11.0)
[2020-04-12 02:22] LABS: CHLORIDE 97 MMOL/L (98-107); POTASSIUM 4.3 MMOL/L (3.6-5.0); SODIUM 134 MMOL/L (135-145)
[2020-04-12 02:24] LABS: CALCIUM 8.5 MG/DL (8.5-10.1)
[2020-04-12 02:45] LABS: GLUCOSE 147 MG/DL (70-105)
[2020-04-12 02:46] LABS: CARBON DIOXIDE 27 MMOL/L (21-32)
[2020-04-12 02:48] LABS: CREATININE SERUM 0.61 MG/DL (0.60-1.30); GFR ESTIMATED > 60; PHOSPHORUS 4.4 MG/DL (2.3-4.7)
[2020-04-12 02:49] LABS: BUN/CREATININE RATIO 25
[2020-04-12 02:50] LABS: MAGNESIUM 1.6 MG/DL (1.6-2.4)
--- NOTE | 2020-04-12 04:11 | Pulmonary Progress Note ---
Subjective Time Seen by a Provider: 04:06 Subjective/Events-last exam Pt is sedated on vent. Sepsis Event Evaluation Height, Weight, BMI Height: '" Weight: lbs. oz. kg; 67.00 BMI Method: Exam Exam Vital Signs Date Time Temp Pulse Resp B/P (MAP) Pulse Ox O2 Delivery O2 Flow Rate FiO2 04/12/20 01:25 82 24 98 90 04/12/20 01:03 81 135/76 04/12/20 01:00 81 04/11/20 23:00 37.0 76 23 134/78 (96) 98 Mechanical Ventilator 85.00 04/11/20 22:40 Mechanical Ventilator 85.00 04/11/20 22:32 87 24 97 90 04/11/20 22:00 37.0 120 24 142/80 (100) 97 Mechanical Ventilator 90.00 04/11/20 21:00 37.1 84 23 141/79 (99) 97 Mechanical Ventilator 90.00 04/11/20 21:00 97 Mechanical Ventilator 90 04/11/20 20:00 Mechanical Ventilator 90.00 04/11/20 20:00 37.2 85 24 141/76 (97) 98 Mechanical Ventilator 90.00 04/11/20 19:05 82 24 98 90 04/11/20 19:00 37.2 82 25 131/85 (100) 97 Mechanical Ventilator 90.00 04/11/20 19:00 81 04/11/20 18:00 37.3 87 23 130/79 (96) 97 Mechanical Ventilator 90.00 04/11/20 17:00 37.3 110 23 120/83 (95) 97 Mechanical Ventilator 90.00 04/11/20 16:18 110 04/11/20 16:00 37.3 101 23 129/82 (98) 97 Mechanical Ventilator 90.00 04/11/20 15:00 37.3 81 23 123/77 (92) 97 Mechanical Ventilator 90.00 04/11/20 14:51 86 24 97 90 04/11/20 14:00 37.3 84 23 97 Mechanical Ventilator 90.00 04/11/20 14:00 88 04/11/20 13:00 37.3 88 23 98 Mechanical Ventilator 90.00 04/11/20 12:00 37.3 113 24 97 Mechanical Ventilator 90.00 04/11/20 11:36 37.3 04/11/20 11:00 37.3 98 24 98 Mechanical Ventilator 90.00 04/11/20 10:48 79 24 96 90 04/11/20 10:00 37.3 93 24 158/84 (108) 95 Mechanical Ventilator 90.00 04/11/20 09:00 97 Mechanical Ventilator 90 04/11/20 08:44 103 04/11/20 08:00 37.3 80 24 124/62 (82) 95 Mechanical Ventilator 90.00 04/11/20 07:04 79 24 96 90 04/11/20 07:00 37.4 78 23 119/69 (86) 96 Mechanical Ventilator 90.00 04/11/20 07:00 78 04/11/20 06:00 37.3 75 23 105/59 (74) 96 Mechanical Ventilator 90.00 04/11/20 05:00 37.2 77 24 108/62 (77) 95 Mechanical Ventilator 90.00 I & O 04/12/20 07:00 Intake Total 490 ml Output Total 575 ml Balance -85 ml Height & Weight Height: '" Weight: lbs. oz. kg; 67.00 BMI Method: General Appearance: No Apparent Distress, WD/WN, Moderate Distress Neck: Full Range of Motion Respiratory: No Normal Breath Sounds; Respiratory Distress, Rhonci (Coarse rhonchus breath sounds throughout bilateral lung fuller) Cardiovascular: Regular Rate, Rhythm, Tachycardia Capillary Refill: Less Than 3 Seconds Extremity: Other (1-2+ edema bilateral lower extremities. Both lower extremities are tender to palpation) Neurologic/Psychiatric: Normal Mood/Affect, resident surgeon II-XII Norm as Tested Results Lab Laboratory Tests 04/11/20 02:10 04/12/20 01:55 Assessment/Plan Assessment/Plan Acute respiratory failure secondary to COVID -19 with PNA with ARDS -Intubated 03/27 -s/p Remdesivir, CVP -Currently on Precedex and Fentanyl -Change precedex to Versed pt is not ready for weaning at this time. -Will give 40mg of Lasix. -Vent setting 370, 24, peep 16. currently requiring 85% oxygen -Resume proning -Labs pending -Continue TF -Decadron -Change IVF to LR and decrease to 30cc/hr -LR currently at 30cc/hr -- increase to 75cc/hr PNA - pt is requiring 90% oxygen and more PEEP -PCT is up -Restart Merrem -Repeat cuadra cultures Hypomag -replace. Morbid obesity Debility GI/DVT ppx -Lovenox ppx WINIFRED LEON DO Apr 12, 2020 04:11
[2020-04-12] MEDS: LACTATED RINGERS 1,000 ML IV SCH ×2 (05:45→19:34)
[2020-04-12] MEDS: inSUlin ASPART (NovoLOG) 1 UNIT/0.01 ML (CHARGE PER UNIT) SC SCH ×4 (05:46→23:47)
[2020-04-12] MEDS: POTASSIUM CL 10MEQ/50ML IVPB 50 ML IV SCH (05:46)
[2020-04-12] MEDS: MAGNESIUM 1 GM/100 ML IVPB 100 ML IV SCH (05:46)
[2020-04-12] MEDS: KCL 20 MEQ TAB (K-DUR) PO SCH (05:46)
[2020-04-12] MEDS: LEVOTHYROXINE 100 MCG (LEVOTHROID) TAB PO SCH (05:46)
--- NOTE | 2020-04-12 06:14 | Diagnostic Imaging Report ---
Indication: Hypoxemia Portable chest 1:17 AM ET tube projects over the trachea. NG tube enters the stomach. There are dorsal column stimulator leads projecting over the lower thoracic spine. There are some discoid atelectasis at both lung bases. IMPRESSION: Bibasilar discoid atelectasis. No significant change from previous day. Dictated by: Dictated on workstation # [id number]
[2020-04-12 08:53] VITALS: BP 115/61
--- NOTE | 2020-04-12 09:24 | Physical Therapy Progress Note ---
Therapy Progress Note PROM bilateral extremities in supine. Restraints in place bilateral UE. AIME GIFFORD PT Apr 12, 2020 09:24
[2020-04-12] MEDS: DOCUSATE SODIUM 10 MG/ML 10 ML UDC (COLACE) PO SCH ×2 (09:28→20:23)
[2020-04-12] MEDS: METOCLOPRAMIDE INJ 10 MG/2 ML (REGLAN) IVP SCH ×2 (09:28→20:20)
[2020-04-12] MEDS: FAMOTIDINE 20MG/2ML IV (PEPCID) IV SCH ×2 (09:28→20:19)
[2020-04-12] MEDS: ENOXAPARIN 60 MG/0.6 ML (LOVENOX) SYR SC SCH ×2 (09:28→20:23)
[2020-04-12] MEDS: ARTIFICIAL TEARS OINT (LACRI-LUBE) 3.5 GM TUBE OU SCH ×2 (09:29→20:23)
[2020-04-12] MEDS: MICONAZOLE NITRATE 2% CRM 30 GM TP SCH ×2 (09:29→20:24)
[2020-04-12 11:52] VITALS: BP 129/68
--- NOTE | 2020-04-12 13:57 | NUR ---
Note pt currently receiving TF of [employer] via 60ml bolus feeds q4h with 30ml free water flushes before/after each bolus. Continue to increase TF by 30ml q8h as tolerated, toward goal of 150ml bolus feeds q4h. Will continue to follow and reassess as pt needs, intake, and status change. Srinivasa Franks, MS RD LD [phone] cell
[2020-04-12] MEDS: DexMEDEtomidine PRE MIX 100 ML IV SCH (14:03)
--- NOTE | 2020-04-12 14:12 | NUR ---
SPOKE WITH YUNIER AND UPDATED ON PATIENT CONDITION. ALL QUESTIONS ANSWERED.
[2020-04-12 15:05] VITALS: BP 134/77
[2020-04-12 18:59] VITALS: BP 136/75
[2020-04-12 22:14] VITALS: BP 134/72
[2020-04-13 01:21] VITALS: BP 134/72
[2020-04-13] MEDS: RT-ALBUTEROL INHALER HFA (VENTOLIN HFA) 18 GM IH SCH ×6 (01:21→22:47)
[2020-04-13] MEDS: IPRATROPIUM INHALER (ATROVENT) 12.9 GM INH SCH ×6 (01:21→22:47)
[2020-04-13] MEDS: fentaNYL DRIP PRE-MIX 250 ML IV SCH ×5 (02:22→22:27)
[2020-04-13] MEDS: MEROPENEM 500 MG in WATER (STERILE) FOR INJECTION 10 ML IV SCH ×4 (02:30→20:09)
[2020-04-13 03:19] LABS: BASOPHILS % (AUTO) 0 % (0-10); EOSINOPHILS % (AUTO) 0 % (0-10); HEMATOCRIT 32 % (35-52); LYMPHOCYTES % (AUTO) 14 % (12-44); MEAN CORPUSCULAR HEMOGLOBIN 28 pg (25-34); MEAN CORPUSCULAR HGB CONC 31 g/dL (32-36); MEAN CORPUSCULAR VOLUME 90 fL (80-99); MEAN PLATELET VOLUME 11.1 fL (9.0-12.2); MONOCYTES # (AUTO) 0.7 10^3/uL (0.0-1.0); MONOCYTES % (AUTO) 10 % (0-12); NEUTROPHILS # (AUTO) 5.1 10^3/uL (1.8-7.8); NEUTROPHILS % (AUTO) 74 % (42-75); PLATELET COUNT 248 10^3/uL (130-400); WHITE BLOOD COUNT 6.9 10^3/uL (4.3-11.0)
[2020-04-13 03:32] LABS: CHLORIDE 97 MMOL/L (98-107); POTASSIUM 3.8 MMOL/L (3.6-5.0); SODIUM 134 MMOL/L (135-145)
[2020-04-13 03:34] LABS: CALCIUM 8.8 MG/DL (8.5-10.1); GLUCOSE 145 MG/DL (70-105)
[2020-04-13 03:35] LABS: TRIGLYCERIDES 207 MG/DL (<150)
[2020-04-13 03:36] LABS: CARBON DIOXIDE 26 MMOL/L (21-32)
[2020-04-13 03:38] LABS: CREATININE SERUM 0.57 MG/DL (0.60-1.30); GFR ESTIMATED > 60
[2020-04-13 03:39] LABS: BUN/CREATININE RATIO 18
[2020-04-13 03:41] LABS: MAGNESIUM 1.4 MG/DL (1.6-2.4)
[2020-04-13 04:55] LABS: ABG OXYGEN SATURATION 97 % (94-100); ABG PCO2 48 MMHG (35-45); ABG PH 7.38 (7.37-7.43); ABG PO2 89 MMHG (79-93); ABG TCO2 29.1 MMOL/L (21.0-31.0)
[2020-04-13] MEDS: POTASSIUM CL 10MEQ/50ML IVPB 50 ML IV SCH (04:55)
[2020-04-13] MEDS: MAGNESIUM 1 GM/100 ML IVPB 100 ML IV SCH (04:56)
[2020-04-13] MEDS: KCL 20 MEQ TAB (K-DUR) PO SCH (04:56)
[2020-04-13 04:57] LABS: ALLENS TEST YES-POS
[2020-04-13 04:58] LABS: INSPIRED O2 35%; VENTILATOR YES
[2020-04-13] MEDS ORDERED: MAGNESIUM 1 GM/100 ML IVPB 100 ML IV ONE ×2 (05:00→06:15)
--- NOTE | 2020-04-13 05:26 | Diagnostic Imaging Report ---
EXAMINATION: Portable erect AP chest at 1:30 AM INDICATION: Respiratory distress, COVID-19 When compared to the prior exam of 04/12/2020, there does not appear to have been any significant change. The heart is enlarged but stable. There are still alveolar/interstitial infiltrates involving both lungs, particularly the left lung base. The mediastinum is not widened. The osseous structures are intact. The supportive tubes and lines seem to be stable in position. IMPRESSION: There is persistent cardiomegaly and bilateral pneumonia/atelectasis. Overall, there has been no significant change since the prior exam. Dictated by: Dictated on workstation # [id number]
[2020-04-13] MEDS: LACTATED RINGERS 1,000 ML IV SCH ×3 (05:30→20:11)
[2020-04-13] MEDS: inSUlin ASPART (NovoLOG) 1 UNIT/0.01 ML (CHARGE PER UNIT) SC SCH ×3 (05:42→17:57)
--- NOTE | 2020-04-13 06:17 | Pulmonary Progress Note ---
Subjective Time Seen by a Provider: 06:15 Subjective/Events-last exam Sedated on vent. Sepsis Event Evaluation Height, Weight, BMI Height: '" Weight: lbs. oz. kg; 67.00 BMI Method: Exam Exam Vital Signs Date Time Temp Pulse Resp B/P (MAP) Pulse Ox O2 Delivery O2 Flow Rate FiO2 04/13/20 05:00 37.0 97 23 129/76 (93) 94 Mechanical Ventilator 35.00 04/13/20 04:00 36.9 91 24 140/82 (101) 92 Mechanical Ventilator 35.00 04/13/20 03:00 36.9 88 23 151/79 (103) 93 Mechanical Ventilator 35.00 04/13/20 02:00 37.1 88 24 168/85 (112) 94 Mechanical Ventilator 35.00 04/13/20 01:21 85 24 96 35 04/13/20 01:00 37.4 87 24 148/89 (108) 94 Mechanical Ventilator 35.00 04/13/20 01:00 87 04/13/20 00:00 37.4 90 23 143/76 (98) 94 Mechanical Ventilator 35.00 04/12/20 23:00 37.5 88 24 149/79 (102) 92 Mechanical Ventilator 35.00 04/12/20 22:14 85 24 95 35 04/12/20 22:00 37.3 81 23 160/82 (108) 95 Mechanical Ventilator 35.00 04/12/20 21:00 95 Mechanical Ventilator 35 04/12/20 21:00 37.3 84 31 127/71 (89) 95 Mechanical Ventilator 35.00 04/12/20 20:00 37.4 84 24 123/69 (87) 94 Mechanical Ventilator 35.00 04/12/20 19:00 82 04/12/20 19:00 37.4 82 24 136/70 (92) 95 Mechanical Ventilator 35.00 04/12/20 18:59 83 24 97 40 04/12/20 18:00 37.5 82 24 131/68 (83) 94 Mechanical Ventilator 45.00 04/12/20 17:45 37.5 82 24 131/67 (92) 94 04/12/20 17:30 37.5 83 19 129/71 (93) 92 04/12/20 17:15 37.5 84 24 128/70 (93) 93 04/12/20 17:00 37.5 85 24 133/70 (90) 92 Mechanical Ventilator 45.00 04/12/20 16:45 37.5 85 23 129/72 (85) 94 04/12/20 16:30 37.6 84 23 128/68 (89) 94 20 16:15 37.5 84 23 127/69 (89) 94 04/12/20 16:00 37.5 84 23 134/67 (91) 95 Mechanical Ventilator 45.00 04/12/20 15:46 89 04/12/20 15:45 37.5 90 24 138/75 (100) 92 04/12/20 15:30 37.5 84 24 132/71 (95) 94 04/12/20 15:15 37.5 84 24 139/76 (89) 91 04/12/20 15:05 83 24 92 40 04/12/20 15:00 37.5 85 23 134/77 (101) 92 Mechanical Ventilator 45.00 04/12/20 14:45 37.4 82 24 135/73 (95) 93 04/12/20 14:30 37.4 81 24 131/72 (93) 95 04/12/20 14:15 37.4 80 24 128/70 (91) 95 04/12/20 14:00 37.4 80 24 121/70 (90) 94 Mechanical Ventilator 45.00 04/12/20 13:45 37.4 82 24 120/69 (84) 94 04/12/20 13:30 37.4 81 23 120/68 (86) 94 04/12/20 13:15 37.4 80 24 129/69 (92) 94 04/12/20 13:00 85 04/12/20 13:00 37.4 80 24 128/71 (91) 94 Mechanical Ventilator 45.00 04/12/20 12:45 37.4 80 24 129/71 (88) 94 04/12/20 12:30 37.4 82 24 125/71 (87) 92 04/12/20 12:15 37.4 82 24 132/70 (91) 91 04/12/20 12:00 37.5 82 23 131/68 (90) 92 Mechanical Ventilator 45.00 04/12/20 11:52 84 24 95 75 04/12/20 11:45 37.6 84 24 129/68 (82) 94 04/12/20 11:30 37.6 84 23 128/73 (90) 93 04/12/20 11:15 37.6 82 23 126/66 (82) 93 04/12/20 11:00 37.6 82 24 131/68 (82) 93 Mechanical Ventilator 45.00 04/12/20 10:50 37.5 83 23 137/69 (91) 97 04/12/20 10:30 37.5 81 22 132/69 (92) 90 04/12/20 10:15 37.5 78 22 110/63 (76) 93 04/12/20 10:00 37.5 86 119/60 (77) 93 Mechanical Ventilator 45.00 04/12/20 09:45 37.4 87 118/64 (80) 93 04/12/20 09:34 45.00 04/12/20 09:30 37.4 88 120/65 (82) 93 04/12/20 09:26 94 Mechanical Ventilator 55 04/12/20 09:15 37.4 86 22 119/63 (81) 96 04/12/20 09:00 37.4 87 42 112/62 (82) 96 Mechanical Ventilator 75.00 04/12/20 08:53 85 24 97 75 04/12/20 08:45 37.4 82 41 115/61 (81) 99 04/12/20 08:30 37.4 82 35 109/67 (79) 99 04/12/20 08:15 37.4 82 71 113/64 (78) 98 04/12/20 08:00 37.3 82 45 119/63 (73) 99 Mechanical Ventilator 85.00 04/12/20 07:45 37.3 82 24 111/67 (78) 99 04/12/20 07:30 37.2 82 42 114/64 (76) 99 04/12/20 07:15 37.2 81 39 114/67 (78) 98 04/12/20 07:00 37.2 80 24 112/66 (80) 99 Mechanical Ventilator 85.00 04/12/20 07:00 83 04/12/20 06:45 37.1 82 24 118/64 (76) 99 04/12/20 06:30 37.1 81 23 107/66 (77) 99 I & O 04/13/20 07:00 Intake Total 485 ml Output Total 1100 ml Balance -615 ml Height & Weight Height: '" Weight: lbs. oz. kg; 67.00 BMI Method: General Appearance: No Apparent Distress, WD/WN, Moderate Distress Neck: Full Range of Motion Respiratory: No Normal Breath Sounds; Respiratory Distress, Rhonci (Coarse rhonchus breath sounds throughout bilateral lung fuller) Cardiovascular: Regular Rate, Rhythm, Tachycardia Capillary Refill: Less Than 3 Seconds Extremity: Other (1-2+ edema bilateral lower extremities. 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 -Will give 40mg of Lasix. -Vent setting 370, 24, peep 16. currently requiring 35% oxygen -Decrease PEep to 14 -Continue proning -Labs pending -Continue TF -Decadron -Change IVF to LR and decrease to 30cc/hr -LR currently at 30cc/hr -- increase to 75cc/hr PNA - -PCT is up -Restart Merrem -Repeat cuadra cultures Hypomag -replace. Morbid obesity Debility GI/DVT ppx -Lovenox ppx WINIFRED LEON DO Apr 13, 2020 06:17
[2020-04-13] MEDS: LEVOTHYROXINE 100 MCG (LEVOTHROID) TAB PO SCH (06:56)
[2020-04-13] MEDS: ARTIFICIAL TEARS OINT (LACRI-LUBE) 3.5 GM TUBE OU SCH ×2 (08:17→20:11)
[2020-04-13] MEDS: METOCLOPRAMIDE INJ 10 MG/2 ML (REGLAN) IVP SCH ×2 (08:17→20:09)
[2020-04-13] MEDS: DOCUSATE SODIUM 10 MG/ML 10 ML UDC (COLACE) PO SCH ×2 (08:17→20:09)
[2020-04-13] MEDS: ENOXAPARIN 60 MG/0.6 ML (LOVENOX) SYR SC SCH ×2 (08:17→20:09)
[2020-04-13] MEDS: FAMOTIDINE 20MG/2ML IV (PEPCID) IV SCH ×2 (08:17→20:09)
[2020-04-13] MEDS: MICONAZOLE NITRATE 2% CRM 30 GM TP SCH ×2 (08:18→20:10)
[2020-04-13 08:40] VITALS: BP 132/70
[2020-04-13] MEDS: MIDAZOLAM DRIP PRE-MIX 100 ML IV SCH (10:19)
[2020-04-13] MEDS: DexMEDEtomidine PRE MIX 100 ML IV SCH (13:08)
--- NOTE | 2020-04-13 13:13 | NUR ---
attempted to call pts sister tom for update, no answer.
--- NOTE | 2020-04-13 13:26 | NUR ---
PTS SISTER CALLED THIS RN BACK, PASSWORD OBTAINED, SISTER UPDATED ON PTS STATUS. NO QUESTIONS/CONCERNS VOICED.
[2020-04-13 15:16] VITALS: BP 159/77
[2020-04-13 18:02] VITALS: BP 161/82
[2020-04-13 22:48] VITALS: BP 162/83
[2020-04-14] MEDS: inSUlin ASPART (NovoLOG) 1 UNIT/0.01 ML (CHARGE PER UNIT) SC SCH ×4 (01:14→18:25)
[2020-04-14] MEDS: RT-ALBUTEROL INHALER HFA (VENTOLIN HFA) 18 GM IH SCH ×6 (01:43→21:24)
[2020-04-14 01:44] VITALS: BP 146/72
[2020-04-14] MEDS: IPRATROPIUM INHALER (ATROVENT) 12.9 GM INH SCH ×6 (01:44→21:24)
[2020-04-14] MEDS: KCL 20 MEQ TAB (K-DUR) PO SCH (02:20)
[2020-04-14] MEDS: MAGNESIUM 1 GM/100 ML IVPB 100 ML IV SCH ×2 (02:20→07:54)
[2020-04-14] MEDS: POTASSIUM CL 10MEQ/50ML IVPB 50 ML IV SCH (02:20)
[2020-04-14 03:31] LABS: ABG BASE EXCESS 3.5 MMOL/L (-2.5-2.5); ABG OXYGEN SATURATION 97 % (94-100); ABG PCO2 49 MMHG (35-45); ABG PH 7.38 (7.37-7.43); ABG PO2 97 MMHG (79-93); ABG TCO2 29.9 MMOL/L (21.0-31.0)
[2020-04-14 03:32] LABS: BASOPHILS % (AUTO) 0 % (0-10); EOSINOPHILS # (AUTO) 0.1 10^3/uL (0.0-0.3); EOSINOPHILS % (AUTO) 2 % (0-10); HEMATOCRIT 32 % (35-52); HEMOGLOBIN 9.9 g/dL (11.5-16.0); LYMPHOCYTES # (AUTO) 0.8 10^3/uL (1.0-4.0); LYMPHOCYTES % (AUTO) 12 % (12-44); MEAN CORPUSCULAR HEMOGLOBIN 28 pg (25-34); MEAN CORPUSCULAR HGB CONC 31 g/dL (32-36); MEAN CORPUSCULAR VOLUME 90 fL (80-99); MEAN PLATELET VOLUME 10.7 fL (9.0-12.2); MONOCYTES # (AUTO) 0.6 10^3/uL (0.0-1.0); MONOCYTES % (AUTO) 10 % (0-12); NEUTROPHILS % (AUTO) 75 % (42-75); PLATELET COUNT 237 10^3/uL (130-400); WHITE BLOOD COUNT 6.7 10^3/uL (4.3-11.0)
[2020-04-14] MEDS: MEROPENEM 500 MG in WATER (STERILE) FOR INJECTION 10 ML IV SCH ×4 (03:34→19:58)
[2020-04-14 03:35] LABS: ALLENS TEST NEGATIVE; INSPIRED O2 30; PATIENT TEMP 36.6; VENTILATOR YES
[2020-04-14 03:39] LABS: CHLORIDE 96 MMOL/L (98-107); POTASSIUM 3.8 MMOL/L (3.6-5.0); SODIUM 133 MMOL/L (135-145)
[2020-04-14 03:41] LABS: CALCIUM 8.8 MG/DL (8.5-10.1); GLUCOSE 139 MG/DL (70-105)
[2020-04-14 03:43] LABS: CARBON DIOXIDE 26 MMOL/L (21-32)
[2020-04-14 03:45] LABS: CREATININE SERUM 0.54 MG/DL (0.60-1.30); GFR ESTIMATED > 60; PHOSPHORUS 3.5 MG/DL (2.3-4.7)
[2020-04-14 03:46] LABS: BUN/CREATININE RATIO 13
[2020-04-14 03:47] LABS: MAGNESIUM 1.5 MG/DL (1.6-2.4)
[2020-04-14] MEDS: fentaNYL DRIP PRE-MIX 250 ML IV SCH ×4 (03:59→20:00)
--- NOTE | 2020-04-14 05:41 | Pulmonary Progress Note ---
Subjective Time Seen by a Provider: 05:40 Subjective/Events-last exam Pt is sedated on vent. Sepsis Event Evaluation Height, Weight, BMI Height: '" Weight: lbs. oz. kg; 67.00 BMI Method: Exam Exam Vital Signs Date Time Temp Pulse Resp B/P (MAP) Pulse Ox O2 Delivery O2 Flow Rate FiO2 04/14/20 05:00 36.9 97 22 154/74 (100) 96 Mechanical Ventilator 30.00 04/14/20 04:00 36.7 95 24 156/81 (106) 96 Mechanical Ventilator 30.00 04/14/20 03:00 36.6 93 24 165/81 (109) 96 Mechanical Ventilator 30.00 04/14/20 02:00 36.9 96 23 165/85 (111) 94 Mechanical Ventilator 30.00 04/14/20 01:44 90 24 97 30 04/14/20 01:00 37.0 87 23 154/76 (102) 96 Mechanical Ventilator 30.00 04/14/20 01:00 87 04/14/20 00:00 37.2 86 23 143/72 (95) 96 Mechanical Ventilator 30.00 04/13/20 23:00 37.2 89 19 148/80 (102) 95 Mechanical Ventilator 30.00 04/13/20 22:48 90 24 97 30 04/13/20 22:00 37.2 89 23 153/73 (99) 95 Mechanical Ventilator 30.00 04/13/20 21:00 93 Mechanical Ventilator 35 04/13/20 21:00 37.3 92 24 142/78 (99) 95 Mechanical Ventilator 30.00 04/13/20 20:03 37.4 92 23 138/74 (95) 96 Mechanical Ventilator 30.00 04/13/20 20:00 37.4 90 24 149/74 (99) 96 Mechanical Ventilator 30.00 04/13/20 19:00 93 04/13/20 19:00 37.5 93 16 138/74 (95) 95 Mechanical Ventilator 30.00 04/13/20 18:02 92 24 98 35 04/13/20 18:00 37.6 92 23 161/82 (113) 98 Mechanical Ventilator 35.00 04/13/20 17:45 37.5 92 15 158/76 (100) 95 04/13/20 17:30 37.5 93 24 160/77 (101) 94 04/13/20 17:15 34.7 93 24 153/75 (104) 94 20 17:00 35.9 92 23 154/78 (103) 94 Mechanical Ventilator 35.00 20 16:45 37.2 92 16 167/81 (110) 94 20 16:30 37.2 90 23 167/80 (108) 95 04/13/20 16:15 36.6 91 24 156/75 (103) 95 04/13/20 16:00 35.8 91 24 148/77 (99) 96 Mechanical Ventilator 35.00 04/13/20 15:45 36.9 92 23 160/75 (97) 95 04/13/20 15:30 36 90 24 157/75 (105) 95 04/13/20 15:16 92 24 93 35 04/13/20 15:15 37.6 91 24 159/77 (105) 93 04/13/20 15:00 37.6 91 24 154/79 (105) 93 04/13/20 14:43 37.5 90 24 161/85 (110) 93 Mechanical Ventilator 35.00 04/13/20 14:30 37.5 90 23 146/79 (100) 92 04/13/20 14:15 37.5 89 23 152/78 (106) 92 04/13/20 14:00 37.5 87 24 158/82 (106) 92 Mechanical Ventilator 35.00 04/13/20 13:45 37.4 89 23 149/78 (92) 92 04/13/20 13:30 37.4 88 23 158/84 (111) 92 04/13/20 13:15 37.4 85 23 157/84 (107) 94 04/13/20 13:00 37.4 89 23 148/80 (99) 94 Mechanical Ventilator 35.00 04/13/20 12:52 91 04/13/20 12:45 37.4 89 24 147/78 (99) 94 04/13/20 12:30 37.4 88 23 146/79 (103) 94 04/13/20 12:15 37.4 89 23 157/79 (102) 94 04/13/20 12:00 37.3 89 24 150/82 (100) 94 Mechanical Ventilator 35.00 04/13/20 11:45 37.3 90 19 157/84 (110) 93 04/13/20 11:30 37.3 89 14 158/92 (101) 92 04/13/20 11:15 37.3 88 24 133/74 (91) 92 04/13/20 11:00 37.4 89 24 143/79 (94) 93 Mechanical Ventilator 35.00 04/13/20 10:45 37.4 89 23 138/76 (91) 92 04/13/20 10:30 37.4 90 24 145/79 (106) 92 04/13/20 10:19 75 24 121/68 04/13/20 10:15 37.4 89 23 147/85 (105) 92 04/13/20 10:00 37.4 87 24 142/76 (97) 90 Mechanical Ventilator 35.00 04/13/20 09:45 37.2 86 22 115/62 (79) 94 04/13/20 09:30 37.3 75 24 123/64 (85) 94 04/13/20 09:15 37.3 73 24 129/67 (86) 95 04/13/20 09:00 92 Mechanical Ventilator 35 04/13/20 09:00 37.2 75 24 121/68 (83) 94 Mechanical Ventilator 35.00 04/13/20 08:45 37.2 131/73 (92) 04/13/20 08:40 77 24 94 35 04/13/20 08:30 37.2 80 24 132/70 (91) 94 04/13/20 08:27 Mechanical Ventilator 35.00 04/13/20 08:15 37.1 79 24 136/70 (90) 95 04/13/20 08:00 37.1 80 24 122/65 (80) 94 Mechanical Ventilator 35.00 04/13/20 07:45 37.1 81 23 125/64 (80) 94 04/13/20 07:30 37.1 82 23 124/66 (88) 93 04/13/20 07:15 37 80 24 125/64 (83) 93 04/13/20 07:00 37 69 23 120/66 (83) 94 Mechanical Ventilator 35.00 04/13/20 07:00 76 04/13/20 06:45 37 113/63 (80) 04/13/20 06:30 37 76 23 114/65 (79) 94 04/13/20 06:15 37 80 24 116/64 (81) 95 04/13/20 06:00 37.0 23 23 116/64 (81) 95 Mechanical Ventilator 35.00 I & O 04/14/20 07:00 Intake Total 2009 ml Output Total 1125 ml Balance 885 ml Height & Weight Height: '" Weight: lbs. oz. kg; 67.00 BMI Method: General Appearance: No Apparent Distress, WD/WN, Moderate Distress Neck: Full Range of Motion Respiratory: No Normal Breath Sounds; Respiratory Distress, Rhonci (Coarse rhonchus breath sounds throughout bilateral lung fuller) Cardiovascular: Regular Rate, Rhythm, Tachycardia Capillary Refill: Less Than 3 Seconds Extremity: Other (1-2+ edema bilateral lower extremities. 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 -Vent setting 370, 24, peep 16. currently requiring 35% oxygen -Decrease PEep to 12 -Continue proning -Labs pending -Continue TF -Decadron -Change IVF to LR and decrease to 30cc/hr -LR currently at 30cc/hr -- increase to 75cc/hr PNA - -PCT is up -Merrem Hypomag -replace. Morbid obesity Debility GI/DVT ppx -Lovenox ppx WINIFRED LEON DO Apr 14, 2020 05:41
[2020-04-14] MEDS: LEVOTHYROXINE 100 MCG (LEVOTHROID) TAB PO SCH (06:42)
[2020-04-14] MEDS: MIDAZOLAM DRIP PRE-MIX 100 ML IV SCH (06:42)
--- NOTE | 2020-04-14 06:49 | Diagnostic Imaging Report ---
EXAMINATION: Portable erect AP chest at 1:51 AM INDICATION: Hypoxia The cardiomegaly and bibasilar pneumonia/atelectasis seen on the prior exam of 04/13/2020 are again evident and not significantly changed. The central pulmonary vascularity, however, may be somewhat greater. This does raise a question of mild pulmonary edema. The mediastinum is not widened. The osseous structures are intact. The supportive tubes and lines are stable. IMPRESSION: The slight prominence of the central pulmonary vascularity when compared to the prior exam suggests that there is now an element of pulmonary edema present in addition to the bibasilar pneumonia/atelectasis. A follow-up study would be recommended for continued evaluation. Dictated by: Dictated on workstation # [id number]
[2020-04-14 06:58] VITALS: BP 146/72
[2020-04-14] MEDS: ENOXAPARIN 60 MG/0.6 ML (LOVENOX) SYR SC SCH ×2 (07:55→19:59)
[2020-04-14] MEDS: FAMOTIDINE 20MG/2ML IV (PEPCID) IV SCH ×2 (07:55→19:58)
[2020-04-14] MEDS: DOCUSATE SODIUM 10 MG/ML 10 ML UDC (COLACE) PO SCH ×2 (07:55→19:58)
[2020-04-14] MEDS: METOCLOPRAMIDE INJ 10 MG/2 ML (REGLAN) IVP SCH ×2 (07:56→19:58)
[2020-04-14] MEDS: MICONAZOLE NITRATE 2% CRM 30 GM TP SCH ×2 (07:56→21:04)
[2020-04-14] MEDS: ARTIFICIAL TEARS OINT (LACRI-LUBE) 3.5 GM TUBE OU SCH ×2 (07:56→19:59)
[2020-04-14] MEDS: LACTATED RINGERS 1,000 ML IV SCH ×2 (07:57→19:57)
[2020-04-14 11:01] VITALS: BP 178/90
--- NOTE | 2020-04-14 12:20 | NUR ---
DR LEON INFORMED OF PTS ELEVATED BP, NEW ORDERS RECEIVED.
[2020-04-14] MEDS: DexMEDEtomidine PRE MIX 100 ML IV SCH (12:24)
[2020-04-14] MEDS: hydrALAZINE (APESOLINE) 20 MG/ML VIAL IV PRN (12:44)
--- NOTE | 2020-04-14 13:00 | NUR ---
PT'S SISTER YUNIER UPDATED ON CONDITION BY PHONE. NO QUESTIONS/CONCERNS VOICED.
[2020-04-14 15:31] VITALS: BP 169/79
[2020-04-14 18:31] VITALS: BP 151/81
[2020-04-14 21:24] VITALS: BP 144/77
[2020-04-15] MEDS: inSUlin ASPART (NovoLOG) 1 UNIT/0.01 ML (CHARGE PER UNIT) SC SCH ×4 (00:35→17:57)
[2020-04-15] MEDS: fentaNYL DRIP PRE-MIX 250 ML IV SCH ×5 (01:10→19:38)
[2020-04-15 01:11] VITALS: BP 157/78
[2020-04-15] MEDS: RT-ALBUTEROL INHALER HFA (VENTOLIN HFA) 18 GM IH SCH ×6 (01:11→21:21)
[2020-04-15] MEDS: IPRATROPIUM INHALER (ATROVENT) 12.9 GM INH SCH ×6 (01:11→21:21)
[2020-04-15] MEDS: MIDAZOLAM DRIP PRE-MIX 100 ML IV SCH ×2 (01:42→19:49)
[2020-04-15 02:19] LABS: ABG BASE EXCESS 4.2 MMOL/L (-2.5-2.5); ABG OXYGEN SATURATION 100 % (94-100); ABG PCO2 41 MMHG (35-45); ABG PH 7.45 (7.37-7.43); ABG PO2 172 MMHG (79-93); ABG TCO2 29.4 MMOL/L (21.0-31.0)
[2020-04-15 02:20] LABS: ALLENS TEST POSITIVE; INSPIRED O2 45; PATIENT TEMP 36.5; VENTILATOR YES
[2020-04-15 02:23] LABS: BASOPHILS % (AUTO) 0 % (0-10); EOSINOPHILS # (AUTO) 0.1 10^3/uL (0.0-0.3); EOSINOPHILS % (AUTO) 2 % (0-10); HEMATOCRIT 30 % (35-52); HEMOGLOBIN 9.4 g/dL (11.5-16.0); LYMPHOCYTES # (AUTO) 0.7 10^3/uL (1.0-4.0); LYMPHOCYTES % (AUTO) 13 % (12-44); MEAN CORPUSCULAR HEMOGLOBIN 28 pg (25-34); MEAN CORPUSCULAR HGB CONC 31 g/dL (32-36); MEAN CORPUSCULAR VOLUME 90 fL (80-99); MEAN PLATELET VOLUME 10.7 fL (9.0-12.2); MONOCYTES # (AUTO) 0.5 10^3/uL (0.0-1.0); MONOCYTES % (AUTO) 8 % (0-12); NEUTROPHILS # (AUTO) 4.3 10^3/uL (1.8-7.8); NEUTROPHILS % (AUTO) 76 % (42-75); PLATELET COUNT 237 10^3/uL (130-400); WHITE BLOOD COUNT 5.7 10^3/uL (4.3-11.0)
[2020-04-15 02:35] LABS: CHLORIDE 97 MMOL/L (98-107); POTASSIUM 3.7 MMOL/L (3.6-5.0); SODIUM 134 MMOL/L (135-145)
[2020-04-15 02:36] LABS: CALCIUM 8.3 MG/DL (8.5-10.1)
[2020-04-15 02:37] LABS: GLUCOSE 125 MG/DL (70-105)
[2020-04-15 02:38] LABS: CARBON DIOXIDE 26 MMOL/L (21-32)
[2020-04-15 02:40] LABS: CREATININE SERUM 0.49 MG/DL (0.60-1.30); GFR ESTIMATED > 60; PHOSPHORUS 3.4 MG/DL (2.3-4.7)
[2020-04-15 02:41] LABS: BUN/CREATININE RATIO 12
[2020-04-15 02:43] LABS: MAGNESIUM 1.6 MG/DL (1.6-2.4)
[2020-04-15] MEDS: MEROPENEM 500 MG in WATER (STERILE) FOR INJECTION 10 ML IV SCH ×4 (03:20→19:39)
[2020-04-15] MEDS: MAGNESIUM 1 GM/100 ML IVPB 100 ML IV SCH ×2 (03:20→05:28)
--- NOTE | 2020-04-15 04:20 | Pulmonary Progress Note ---
Subjective Time Seen by a Provider: 04:15 Subjective/Events-last exam Pt appears to be doing better. Currently sedated on vent. Sepsis Event Evaluation Height, Weight, BMI Height: '" Weight: lbs. oz. kg; 67.00 BMI Method: Exam Exam Vital Signs Date Time Temp Pulse Resp B/P (MAP) Pulse Ox O2 Delivery O2 Flow Rate FiO2 04/15/20 04:00 36.5 92 24 125/65 (85) 98 Mechanical Ventilator 45.00 04/15/20 03:00 36.4 93 24 143/67 (92) 97 Mechanical Ventilator 45.00 04/15/20 02:00 36.6 95 23 165/80 (108) 97 Mechanical Ventilator 45.00 04/15/20 01:42 93 155/75 04/15/20 01:11 99 26 94 45 04/15/20 01:00 36.9 92 16 157/78 (104) 94 Mechanical Ventilator 45.00 04/15/20 01:00 92 04/15/20 00:00 36.9 92 25 159/80 (106) 95 Mechanical Ventilator 45.00 04/14/20 23:00 36.9 93 23 154/79 (104) 94 Mechanical Ventilator 45.00 04/14/20 22:00 37.0 93 23 151/79 (103) 93 Mechanical Ventilator 45.00 04/14/20 21:24 95 24 94 45 04/14/20 21:00 37.1 94 18 143/81 (101) 92 Mechanical Ventilator 45.00 04/14/20 21:00 92 Mechanical Ventilator 45 04/14/20 20:03 Mechanical Ventilator 45.00 04/14/20 20:00 37.2 96 23 143/75 (97) 95 Mechanical Ventilator 45.00 04/14/20 19:00 98 04/14/20 19:00 37.4 98 23 143/74 (97) 94 Mechanical Ventilator 45.00 04/14/20 18:31 98 24 94 45 04/14/20 18:00 37.5 100 23 145/82 (96) 92 Mechanical Ventilator 45.00 04/14/20 17:45 37.6 99 23 145/77 (96) 93 04/14/20 17:30 37.6 98 23 149/75 (89) 95 04/14/20 17:15 37.6 99 23 144/75 (91) 94 04/14/20 17:00 37.6 101 23 152/81 (105) 92 Mechanical Ventilator 45.00 04/14/20 16:45 37.6 98 24 151/75 (95) 95 04/14/20 16:30 37.6 100 23 144/76 (94) 95 04/14/20 16:15 37.7 98 19 149/75 (99) 95 04/14/20 16:00 37.7 101 23 155/78 (100) 93 Mechanical Ventilator 45.00 04/14/20 15:45 37.7 100 24 153/77 (98) 94 04/14/20 15:31 94 24 93 50 04/14/20 15:30 37.7 84 11 169/76 (104) 94 04/14/20 15:15 37.7 89 23 157/74 (101) 93 04/14/20 15:00 37.7 92 19 163/77 (106) 92 Mechanical Ventilator 45.00 04/14/20 14:45 37.6 81 23 164/77 (98) 93 04/14/20 14:30 37.6 81 24 162/76 (105) 93 04/14/20 14:15 37.6 91 24 160/81 (104) 95 04/14/20 14:00 37.6 91 25 165/77 (109) 95 Mechanical Ventilator 45.00 04/14/20 13:45 37.6 89 24 166/79 (96) 95 04/14/20 13:30 37.5 93 20 174/79 (107) 95 04/14/20 13:15 37.5 92 23 165/82 (105) 96 04/14/20 13:00 37.5 93 176/82 (103) Mechanical Ventilator 45.00 04/14/20 13:00 91 04/14/20 12:45 37.5 98 27 191/89 (111) 94 04/14/20 12:30 37.5 89 23 170/82 (109) 91 04/14/20 12:15 37.4 93 23 186/87 (115) 91 04/14/20 12:10 Mechanical Ventilator 45.00 04/14/20 11:45 37.4 92 174/82 (112) 04/14/20 11:30 37.4 93 23 175/85 (114) 89 04/14/20 11:15 37.4 94 21 172/89 (121) 90 04/14/20 11:06 Mechanical Ventilator 35.00 04/14/20 11:01 93 24 95 50 04/14/20 11:00 37.4 92 24 178/90 (110) 95 Mechanical Ventilator 50.00 04/14/20 10:45 37.5 91 24 186/95 (124) 91 04/14/20 10:30 37.5 90 23 177/89 (113) 93 04/14/20 10:22 Mechanical Ventilator 50.00 04/14/20 10:15 37.5 89 191/101 (132) 76 04/14/20 10:00 37.5 90 124/68 (83) 94 Mechanical Ventilator 30.00 04/14/20 09:45 37.5 92 127/71 (84) 93 04/14/20 09:30 37.5 93 126/74 (89) 92 04/14/20 09:15 37.5 90 133/78 (95) 93 04/14/20 09:00 37.4 115 24 113/71 (92) 92 Mechanical Ventilator 30.00 04/14/20 08:45 37.4 114 23 125/77 (93) 92 04/14/20 08:30 37.4 117 23 130/80 (92) 91 04/14/20 08:25 92 Mechanical Ventilator 30 04/14/20 08:15 37.3 101 12 164/81 (102) 91 04/14/20 08:13 Mechanical Ventilator 30.00 04/14/20 08:00 37.3 80 23 121/75 (89) 93 04/14/20 07:45 37.3 79 18 131/72 (86) 94 04/14/20 07:30 37.2 117 23 119/75 (91) 95 04/14/20 07:15 37.2 84 15 121/74 (86) 94 04/14/20 07:00 37.2 96 24 136/72 (85) 95 04/14/20 07:00 95 04/14/20 06:58 95 24 95 30 04/14/20 06:45 37.1 85 13 119/71 (85) 94 04/14/20 06:42 97 22 154/74 04/14/20 06:30 37.1 88 19 130/73 (89) 94 04/14/20 06:15 37.1 94 23 128/74 (88) 97 04/14/20 06:00 37.0 94 23 128/74 (92) 96 Mechanical Ventilator 30.00 04/14/20 05:00 36.9 97 22 154/74 (100) 96 Mechanical Ventilator 30.00 I & O 04/15/20 07:00 Intake Total 1680 ml Output Total 1225 ml Balance 455 ml Height & Weight Height: '" Weight: lbs. oz. kg; 67.00 BMI Method: General Appearance: WD/WN Neck: Full Range of Motion Respiratory: No Normal Breath Sounds; Respiratory Distress, Rhonci (Coarse rho nchus breath sounds throughout bilateral lung fuller) Cardiovascular: Regular Rate, Rhythm, Tachycardia Capillary Refill: Less Than 3 Seconds Extremity: Other (1-2+ edema bilateral lower extremities. Both lower extremities are tender to palpation) Neurologic/Psychiatric: Normal Mood/Affect, interventional cardiologist II-XII Norm as Tested Results Lab Laboratory Tests 04/14/20 03:15 04/15/20 02:00 Assessment/Plan Assessment/Plan Acute respiratory failure secondary to COVID -19 with PNA with ARDS -Intubated 03/27 -s/p Remdesivir, CVP - Fentanyl and versed -Vent setting 370, 24, peep 16. currently requiring 45% oxygen -Decrease PEep to 10 -d/c proning -Continue TF -Decadron -Change IVF to LR and decrease to 30cc/hr PNA - -Merrem Hypomag -replace. Morbid obesity Debility GI/DVT ppx -Lovenox ppx WINIFRED LEON DO Apr 15, 2020 04:20
[2020-04-15] MEDS: POTASSIUM CL 10MEQ/50ML IVPB 50 ML IV SCH (05:28)
[2020-04-15] MEDS: KCL 20 MEQ TAB (K-DUR) PO SCH (05:28)
[2020-04-15] MEDS: LEVOTHYROXINE 100 MCG (LEVOTHROID) TAB PO SCH (05:59)
[2020-04-15 07:21] VITALS: BP 123/67
--- NOTE | 2020-04-15 07:41 | Diagnostic Imaging Report ---
EXAM: CHEST 1 VIEW, AP/PA ONLY INDICATION: Respiratory failure. COVID pneumonia. COMPARISON: Chest radiograph 04/14/2020. FINDINGS: ETT tip at the level of the clavicles. NG tube tip below the [id number]-oaky. Epidural spinal stimulator. Heart size is accentuated by low lung volumes. Dense perihilar consolidation in both lungs. No pleural effusion or pneumothorax. Right IJ CVC tip lower SVC. IMPRESSION: 1. Support lines in the expected positions. 2. Dense airspace opacification in the perihilar lungs bilaterally. Dictated by: Dictated on workstation # [id number]
[2020-04-15] MEDS: ARTIFICIAL TEARS OINT (LACRI-LUBE) 3.5 GM TUBE OU SCH ×2 (08:27→19:40)
[2020-04-15] MEDS: METOCLOPRAMIDE INJ 10 MG/2 ML (REGLAN) IVP SCH ×2 (08:28→19:39)
[2020-04-15] MEDS: ENOXAPARIN 60 MG/0.6 ML (LOVENOX) SYR SC SCH ×2 (08:28→19:39)
[2020-04-15] MEDS: DOCUSATE SODIUM 10 MG/ML 10 ML UDC (COLACE) PO SCH ×2 (08:28→19:39)
[2020-04-15] MEDS: MICONAZOLE NITRATE 2% CRM 30 GM TP SCH ×2 (08:28→19:40)
[2020-04-15] MEDS: FAMOTIDINE 20MG/2ML IV (PEPCID) IV SCH ×2 (08:28→19:39)
[2020-04-15] MEDS: LACTATED RINGERS 1,000 ML IV SCH (08:29)
[2020-04-15] MEDS ORDERED: NS IV 1000 ML 1,000 ML ONE (09:31)
--- NOTE | 2020-04-15 09:37 | Physical Therapy Progress Note ---
Therapy Progress Note Patient remains on mechanical ventilator. PT will continue to monitor patient status. AIME GIFFORD PT Apr 15, 2020 09:37
[2020-04-15 10:16] VITALS: BP 160/76
--- NOTE | 2020-04-15 12:50 | NUR ---
PT'S SISTER YUNIER UPDATED ON CONDITION BY PHONE. NO QUESTIONS/CONCERNS VOICED.
[2020-04-15] MEDS: DexMEDEtomidine PRE MIX 100 ML IV SCH (12:55)
--- NOTE | 2020-04-15 13:30 | Anesthesia-Procedure Note ---
Procedures/Interventions Procedure Start/Stop/Diagnosis Date of Procedure: Apr 15, 2020 Start Time: 12:20 Stop Time: 13:20 Arterial Line Arterial Line Catheter: 20G Type: Radial Location: Right Procedure: prepped, draped in sterile fashion, good wave-form was obtained, patient tolerated procedure well, no immediate complications, post procedure area cleaned, post procedure dressing applied TRUE CASTRO CRNA Apr 15, 2020 13:30
[2020-04-15] MEDS: hydrALAZINE (APESOLINE) 20 MG/ML VIAL IV PRN (13:37)
[2020-04-15 14:16] VITALS: BP 167/63
[2020-04-15] MEDS: APAP 325 MG/10.15 ML LIQ (TYLENOL) UDC PO PRN ×2 (16:46→20:34)
--- NOTE | 2020-04-15 16:57 | NUR ---
Note pt currently receiving TF via 60ml bolus feeds q4h with 30ml free water flushes before/after each bolus. Continue to increase TF by 30ml q8h as tolerated, toward goal of 150ml bolus feeds q4h. Will continue to follow and reassess as pt needs, intake, and status change. Srinivasa Franks, MS RD LD [phone] cell
[2020-04-15 18:35] VITALS: BP 113/53
[2020-04-15 21:21] VITALS: BP 101/54
[2020-04-16] MEDS: fentaNYL DRIP PRE-MIX 250 ML IV SCH ×5 (00:47→19:47)
[2020-04-16] MEDS: inSUlin ASPART (NovoLOG) 1 UNIT/0.01 ML (CHARGE PER UNIT) SC SCH ×4 (00:48→18:17)
[2020-04-16] MEDS: RT-ALBUTEROL INHALER HFA (VENTOLIN HFA) 18 GM IH SCH ×6 (01:48→21:36)
[2020-04-16 01:49] VITALS: BP 119/54
[2020-04-16] MEDS: IPRATROPIUM INHALER (ATROVENT) 12.9 GM INH SCH ×6 (01:49→21:36)
[2020-04-16] MEDS: MEROPENEM 500 MG in WATER (STERILE) FOR INJECTION 10 ML IV SCH ×4 (02:00→19:46)
[2020-04-16 02:17] LABS: ABG BASE EXCESS 6.9 MMOL/L (-2.5-2.5); ABG OXYGEN SATURATION 94 % (94-100); ABG PCO2 47 MMHG (35-45); ABG PH 7.44 (7.37-7.43); ABG PO2 74 MMHG (79-93); ABG TCO2 32.5 MMOL/L (21.0-31.0)
[2020-04-16 02:18] LABS: ALLENS TEST POSITIVE; INSPIRED O2 35; PATIENT TEMP 37.3; VENTILATOR YES
[2020-04-16 02:24] LABS: BASOPHILS % (AUTO) 0 % (0-10); EOSINOPHILS # (AUTO) 0.1 10^3/uL (0.0-0.3); EOSINOPHILS % (AUTO) 2 % (0-10); HEMATOCRIT 28 % (35-52); HEMOGLOBIN 8.8 g/dL (11.5-16.0); LYMPHOCYTES # (AUTO) 0.5 10^3/uL (1.0-4.0); LYMPHOCYTES % (AUTO) 11 % (12-44); MEAN CORPUSCULAR HEMOGLOBIN 28 pg (25-34); MEAN CORPUSCULAR HGB CONC 32 g/dL (32-36); MEAN CORPUSCULAR VOLUME 89 fL (80-99); MEAN PLATELET VOLUME 10.9 fL (9.0-12.2); MONOCYTES # (AUTO) 0.4 10^3/uL (0.0-1.0); MONOCYTES % (AUTO) 8 % (0-12); NEUTROPHILS # (AUTO) 3.7 10^3/uL (1.8-7.8); NEUTROPHILS % (AUTO) 78 % (42-75); PLATELET COUNT 228 10^3/uL (130-400); WHITE BLOOD COUNT 4.7 10^3/uL (4.3-11.0)
[2020-04-16 02:30] LABS: CHLORIDE 99 MMOL/L (98-107)
[2020-04-16 02:31] LABS: SODIUM 137 MMOL/L (135-145)
[2020-04-16 02:32] LABS: CALCIUM 8.4 MG/DL (8.5-10.1); GLUCOSE 139 MG/DL (70-105)
[2020-04-16 02:34] LABS: CARBON DIOXIDE 27 MMOL/L (21-32)
[2020-04-16 02:36] LABS: CREATININE SERUM 0.49 MG/DL (0.60-1.30); GFR ESTIMATED > 60; PHOSPHORUS 3.7 MG/DL (2.3-4.7)
[2020-04-16 02:37] LABS: BUN/CREATININE RATIO 12
[2020-04-16 02:39] LABS: MAGNESIUM 1.7 MG/DL (1.6-2.4)
[2020-04-16] MEDS: MAGNESIUM 1 GM/100 ML IVPB 100 ML IV SCH ×2 (03:05→07:16)
--- NOTE | 2020-04-16 05:16 | Pulmonary Progress Note ---
Subjective Time Seen by a Provider: 05:13 Subjective/Events-last exam Pt is sedated on vent currently. Sepsis Event Evaluation Height, Weight, BMI Height: '" Weight: lbs. oz. kg; 67.00 BMI Method: Exam Exam Vital Signs Date Time Temp Pulse Resp B/P (MAP) Pulse Ox O2 Delivery O2 Flow Rate FiO2 04/16/20 04:00 37.2 93 24 109/56 (73) 91 Mechanical Ventilator 35.00 04/16/20 03:00 37.3 96 23 106/55 (72) 92 Mechanical Ventilator 35.00 04/16/20 02:00 37.3 95 24 106/51 (69) 92 Mechanical Ventilator 35.00 04/16/20 01:49 94 24 92 35 04/16/20 01:00 37.4 95 22 110/52 (71) 90 Mechanical Ventilator 35.00 04/16/20 01:00 95 04/16/20 00:00 37.5 95 23 113/52 (72) 90 Mechanical Ventilator 35.00 04/15/20 23:00 37.5 96 24 122/56 (78) 90 Mechanical Ventilator 35.00 04/15/20 22:00 37.7 128 33 103/55 (71) 92 Mechanical Ventilator 35.00 04/15/20 21:21 130 24 92 35 04/15/20 21:04 37.9 04/15/20 21:00 95 Mechanical Ventilator 35 04/15/20 21:00 38.0 131 24 97/54 (68) 92 Mechanical Ventilator 35.00 04/15/20 20:34 38.0 04/15/20 20:00 38.0 101 24 92/49 (63) 92 Mechanical Ventilator 35.00 04/15/20 19:53 Mechanical Ventilator 35.00 04/15/20 19:49 102 100/50 04/15/20 19:00 105 04/15/20 19:00 38.1 105 26 107/53 (71) 93 Mechanical Ventilator 35.00 04/15/20 18:35 109 25 93 35 04/15/20 18:16 38.1 110 24 113/52 (72) 92 Mechanical Ventilator 35.00 04/15/20 17:26 38.1 04/15/20 17:00 38.1 111 25 150/58 (88) 92 Mechanical Ventilator 35.00 04/15/20 16:46 38.1 04/15/20 16:09 37.3 04/15/20 16:00 36.8 105 23 136/57 (83) 93 Mechanical Ventilator 35.00 04/15/20 15:04 36.8 107 25 140/56 (84) 91 Mechanical Ventilator 35.00 04/15/20 14:16 128 28 92 35 04/15/20 13:42 125 04/15/20 11:15 36.9 04/15/20 11:00 36.8 101 25 157/82 (107) 92 Mechanical Ventilator 35.00 04/15/20 10:16 98 26 93 35 04/15/20 10:00 36.8 115 25 150/80 (103) 89 Mechanical Ventilator 35.00 04/15/20 09:15 95 Mechanical Ventilator 35 04/15/20 09:00 36.8 98 58 140/70 (93) 95 Mechanical Ventilator 35.00 04/15/20 08:48 Mechanical Ventilator 35.00 04/15/20 08:00 36.8 95 24 132/69 (90) 95 Mechanical Ventilator 35.00 04/15/20 07:21 90 26 96 35 04/15/20 07:00 36.8 93 23 125/65 (85) 97 Mechanical Ventilator 35.00 04/15/20 07:00 94 04/15/20 06:00 36.8 92 24 114/63 (80) 97 Mechanical Ventilator 45.00 I & O 04/16/20 06:59 Intake Total 1910 ml Output Total 1750 ml Balance 160 ml Height & Weight Height: '" Weight: lbs. oz. kg; 67.00 BMI Method: General Appearance: WD/WN Neck: Full Range of Motion Respiratory: No Normal Breath Sounds; Respiratory Distress, Rhonci (Coarse rhonchus breath sounds throughout bilateral lung fuller) Cardiovascular: Regular Rate, Rhythm, Tachycardia Capillary Refill: Less Than 3 Seconds Extremity: Other (1-2+ edema bilateral lower extremities. Both lower extremities are tender to palpation) Neurologic/Psychiatric: Normal Mood/Affect, veterinary virologist II-XII Norm as Tested Results Lab Laboratory Tests 04/15/20 02:00 04/16/20 02:00 Assessment/Plan Assessment/Plan Acute respiratory failure secondary to COVID -19 with PNA with ARDS -Intubated 03/27 -s/p Remdesivir, CVP - Fentanyl and versed -Vent setting 370, 24, peep 10. currently requiring 35% oxygen -Decrease PEep to 8 -Will transfer to [place] when possible -d/c proning -Continue TF -Decadron -Change IVF to LR and decrease to 30cc/hr PNA - -Merrem Hypomag -replace. Morbid obesity Debility GI/DVT ppx -Lovenox ppx WINIFRED LEON DO Apr 16, 2020 05:15
[2020-04-16 06:21] VITALS: BP 103/53
[2020-04-16] MEDS: LEVOTHYROXINE 100 MCG (LEVOTHROID) TAB PO SCH (06:21)
[2020-04-16] MEDS: POTASSIUM CL 10MEQ/50ML IVPB 50 ML IV SCH (07:15)
[2020-04-16] MEDS: KCL 20 MEQ TAB (K-DUR) PO SCH (07:16)
--- NOTE | 2020-04-16 07:52 | Diagnostic Imaging Report ---
INDICATION: COVID positive, mechanical ventilation. TECHNIQUE: Single view chest 2:36 AM. CORRELATION STUDY: 04/15/2020 FINDINGS: Endotracheal tube and gastric tube as well as right-sided central line all remain in place. Heart size enlarged. Vasculature slightly prominent. Bibasilar areas of atelectasis and/or infiltrate along with small effusions are present. However, there is overall improved aeration to the lung fuller. IMPRESSION: 1. Bibasilar areas of atelectasis and/or infiltrate are present. However there is improving aeration to the lung fuller. 2. Overall appears less congestion. 3. Stable appearance about support lines and tubes. Dictated by: Dictated on workstation # [id number]
[2020-04-16] MEDS: METOCLOPRAMIDE INJ 10 MG/2 ML (REGLAN) IVP SCH ×2 (08:17→19:46)
[2020-04-16] MEDS: DOCUSATE SODIUM 10 MG/ML 10 ML UDC (COLACE) PO SCH ×2 (08:17→19:46)
[2020-04-16] MEDS: FAMOTIDINE 20MG/2ML IV (PEPCID) IV SCH ×2 (08:17→19:46)
[2020-04-16] MEDS: ENOXAPARIN 60 MG/0.6 ML (LOVENOX) SYR SC SCH ×2 (08:17→19:47)
[2020-04-16] MEDS: MICONAZOLE NITRATE 2% CRM 30 GM TP SCH (08:18)
[2020-04-16] MEDS: ARTIFICIAL TEARS OINT (LACRI-LUBE) 3.5 GM TUBE OU SCH ×2 (08:25→19:47)
[2020-04-16] MEDS: LACTATED RINGERS 1,000 ML IV SCH (08:29)
[2020-04-16] MEDS: MIDAZOLAM DRIP PRE-MIX 100 ML IV SCH ×2 (08:29→19:49)
--- NOTE | 2020-04-16 09:02 | NUR ---
phone call placed to sisterAdela. Updates given and questions answered. Had long discussion regarding [facility]. Family would like patient to go to [facility] as soon as bed becomes available. Family has questions regarding facility. This RN will have rico Henderson clinical liaison call family. Family states they have no questions or concerns at this time.
--- NOTE | 2020-04-16 10:24 | Physical Therapy Progress Note ---
Therapy Progress Note PROM all extremities in supine. Sedated and intubated. AIME GIFFORD PT Apr 16, 2020 10:24
[2020-04-16 10:36] VITALS: BP 138/59
--- NOTE | 2020-04-16 14:43 | NUR ---
Note pt currently receiving TF via 90ml bolus feeds q4h with 30ml free water flushes before/after each bolus. Continue to increase TF by 30ml q8h as tolerated, toward goal of 150ml bolus feeds q4h. Will continue to follow and reassess as pt needs, intake, and status change. Srinivasa Franks, MS RD LD [phone] cell
[2020-04-16] MEDS: DexMEDEtomidine PRE MIX 100 ML IV SCH (14:53)
[2020-04-16 15:04] VITALS: BP 137/61
[2020-04-16 18:09] VITALS: BP 113/61
[2020-04-16] MEDS ORDERED: MICONAZOLE NITRATE 2% CRM 30 GM TP PRN (18:45)
[2020-04-16] MEDS: MICONAZOLE 2% POWDER (DESENEX AF) 90 GM TOP SCH (19:48)
[2020-04-16 21:36] VITALS: BP 131/62
[2020-04-17] MEDS: LACTATED RINGERS 1,000 ML IV SCH
[2020-04-17] MEDS: fentaNYL DRIP PRE-MIX 250 ML IV SCH ×5 (00:01→20:03)
[2020-04-17] MEDS: MEROPENEM 500 MG in WATER (STERILE) FOR INJECTION 10 ML IV SCH ×4 (01:13→19:46)
[2020-04-17 01:36] LABS: ABG BASE EXCESS 6.6 MMOL/L (-2.5-2.5); ABG OXYGEN SATURATION 95 % (94-100); ABG PCO2 50 MMHG (35-45); ABG PH 7.41 (7.37-7.43); ABG PO2 81 MMHG (79-93); ABG TCO2 32.6 MMOL/L (21.0-31.0)
[2020-04-17 01:38] LABS: BASOPHILS % (AUTO) 0 % (0-10); EOSINOPHILS # (AUTO) 0.3 10^3/uL (0.0-0.3); EOSINOPHILS % (AUTO) 6 % (0-10); HEMATOCRIT 30 % (35-52); HEMOGLOBIN 9.1 g/dL (11.5-16.0); LYMPHOCYTES # (AUTO) 0.6 10^3/uL (1.0-4.0); LYMPHOCYTES % (AUTO) 13 % (12-44); MEAN CORPUSCULAR HEMOGLOBIN 28 pg (25-34); MEAN CORPUSCULAR HGB CONC 31 g/dL (32-36); MEAN CORPUSCULAR VOLUME 90 fL (80-99); MEAN PLATELET VOLUME 10.4 fL (9.0-12.2); MONOCYTES # (AUTO) 0.3 10^3/uL (0.0-1.0); MONOCYTES % (AUTO) 7 % (0-12); NEUTROPHILS # (AUTO) 3.2 10^3/uL (1.8-7.8); NEUTROPHILS % (AUTO) 72 % (42-75); PLATELET COUNT 255 10^3/uL (130-400); WHITE BLOOD COUNT 4.5 10^3/uL (4.3-11.0)
[2020-04-17 01:39] LABS: ALLENS TEST POSITIVE; INSPIRED O2 60; PATIENT TEMP 37.5; VENTILATOR YES
[2020-04-17 01:45] LABS: CHLORIDE 100 MMOL/L (98-107); POTASSIUM 3.6 MMOL/L (3.6-5.0); SODIUM 138 MMOL/L (135-145)
[2020-04-17 01:46] LABS: CALCIUM 8.3 MG/DL (8.5-10.1)
[2020-04-17 01:47] LABS: GLUCOSE 113 MG/DL (70-105)
[2020-04-17 01:48] LABS: CARBON DIOXIDE 27 MMOL/L (21-32)
[2020-04-17 01:50] LABS: PHOSPHORUS 3.4 MG/DL (2.3-4.7)
[2020-04-17 01:51] LABS: BUN/CREATININE RATIO 13; CREATININE SERUM 0.47 MG/DL (0.60-1.30); GFR ESTIMATED > 60
[2020-04-17 01:54] LABS: MAGNESIUM 1.7 MG/DL (1.6-2.4)
[2020-04-17 01:59] VITALS: BP 158/70
[2020-04-17] MEDS: IPRATROPIUM INHALER (ATROVENT) 12.9 GM INH SCH ×6 (01:59→21:37)
[2020-04-17] MEDS: RT-ALBUTEROL INHALER HFA (VENTOLIN HFA) 18 GM IH SCH ×6 (01:59→21:37)
[2020-04-17] MEDS: hydrALAZINE (APESOLINE) 20 MG/ML VIAL IV PRN ×2 (03:48→19:57)
[2020-04-17] MEDS: MAGNESIUM 1 GM/100 ML IVPB 100 ML IV SCH ×3 (03:49→05:48)
[2020-04-17] MEDS: POTASSIUM CL 10MEQ/50ML IVPB 50 ML IV SCH ×7 (03:49→08:08)
--- NOTE | 2020-04-17 04:47 | Pulmonary Progress Note ---
Subjective Time Seen by a Provider: 04:40 Subjective/Events-last exam Pt is now requiring 90% oxygen. Sepsis Event Evaluation Height, Weight, BMI Height: '" Weight: lbs. oz. kg; 67.00 BMI Method: Exam Exam Vital Signs Date Time Temp Pulse Resp B/P (MAP) Pulse Ox O2 Delivery O2 Flow Rate FiO2 04/17/20 01:59 94 24 90 60 04/17/20 01:15 Mechanical Ventilator 60.00 04/17/20 01:00 118 04/16/20 23:00 37.5 92 24 126/57 (80) 90 Mechanical Ventilator 55.00 04/16/20 22:00 37.6 88 23 126/58 (80) 90 Mechanical Ventilator 55.00 04/16/20 21:39 Mechanical Ventilator 55.00 04/16/20 21:36 94 24 89 50 04/16/20 21:00 37.6 95 24 124/59 (80) 90 Mechanical Ventilator 50.00 04/16/20 21:00 95 Mechanical Ventilator 50 04/16/20 20:00 Mechanical Ventilator 50.00 04/16/20 20:00 37.6 95 20 123/59 (80) 90 Mechanical Ventilator 50.00 04/16/20 19:49 94 128/61 04/16/20 19:00 37.7 96 23 117/58 (77) 90 Mechanical Ventilator 50.00 04/16/20 19:00 96 04/16/20 18:09 124 24 90 50 04/16/20 18:00 122 24 119/61 (80) 89 Mechanical Ventilator 50.00 04/16/20 17:00 93 23 131/59 (83) 90 Mechanical Ventilator 50.00 04/16/20 16:00 93 23 134/60 (84) 90 Mechanical Ventilator 50.00 04/16/20 15:04 94 24 90 50 04/16/20 15:00 97 24 132/59 (83) 89 Mechanical Ventilator 50.00 04/16/20 14:59 87 Mechanical Ventilator 50.00 04/16/20 14:52 Mechanical Ventilator 45.00 04/16/20 14:26 87 50.00 04/16/20 14:00 97 24 121/59 (79) 86 Mechanical Ventilator 40.00 04/16/20 13:00 89 23 134/59 (84) 89 Mechanical Ventilator 40.00 04/16/20 13:00 117 12/22/20 12:00 37.4 90 23 134/63 (86) 89 Mechanical Ventilator 40.00 04/16/20 11:00 37.4 90 23 134/61 (85) 89 Mechanical Ventilator 40.00 04/16/20 10:36 90 24 90 40 04/16/20 10:00 37.4 82 23 117/54 (75) 90 Mechanical Ventilator 40.00 04/16/20 09:00 37.2 87 19 91/56 (68) 85 Mechanical Ventilator 40.00 04/16/20 09:00 95 Mechanical Ventilator 40 04/16/20 08:29 92 24 103/53 04/16/20 08:16 24 89 Mechanical Ventilator 40.00 04/16/20 08:00 37.2 87 19 91/56 (68) 85 Mechanical Ventilator 35.00 04/16/20 07:00 37.2 80 24 110/52 (71) 90 Mechanical Ventilator 35.00 04/16/20 07:00 93 04/16/20 06:21 92 24 90 35 04/16/20 06:00 37.2 92 23 107/55 (72) 91 Mechanical Ventilator 35.00 04/16/20 05:00 37.2 115 24 100/58 (72) 88 Mechanical Ventilator 35.00 I & O 04/17/20 07:00 Intake Total 1020 ml Output Total 945 ml Balance 75 ml Height & Weight Height: '" Weight: lbs. oz. kg; 67.00 BMI Method: General Appearance: WD/WN Neck: Full Range of Motion Respiratory: No Normal Breath Sounds; Respiratory Distress, Rhonci (Coarse rhonchus breath sounds throughout bilateral lung fuller) Cardiovascular: Regular Rate, Rhythm, Tachycardia Capillary Refill: Less Than 3 Seconds Extremity: Other (1-2+ edema bilateral lower extremities. Both lower extremities are tender to palpation) Neurologic/Psychiatric: Normal Mood/Affect, material controller II-XII Norm as Tested Results Lab Laboratory Tests 04/16/20 02:00 04/17/20 01:20 Assessment/Plan Assessment/Plan Acute respiratory failure secondary to COVID -19 with PNA with ARDS -Intubated 03/27 -s/p Remdesivir, CVP - Fentanyl and versed -Vent setting 370, 24, peep 10. 35% oxygen --- Currently on 90% oxygen -PEep to 8 --- Increase to 12 -Pt is doing worse today. Will hold off on [facility]. -Resume proning -Check DDIMER, PCT -Give Lasix 40mg x 1 -Continue TF -Decadron -Change IVF to LR 30cc/hr PNA - -Merrem Hypokalemia -Replace Hypomag -replace. Morbid obesity Debility GI/DVT ppx -Lovenox ppx WINIFRED LEON DO Apr 17, 2020 04:47
[2020-04-17] MEDS ORDERED: meTOprolol TARTRATE 50 MG (LOPRESSOR) TAB ONE (04:54)
[2020-04-17] MEDS ORDERED: FUROSEMIDE 40 MG/4 ML INJ (LASIX) ONE (04:56)
[2020-04-17] MEDS: LEVOTHYROXINE 100 MCG (LEVOTHROID) TAB PO SCH (05:27)
[2020-04-17] MEDS: MIDAZOLAM DRIP PRE-MIX 100 ML IV SCH ×2 (05:29→17:17)
[2020-04-17] MEDS: KCL 20 MEQ TAB (K-DUR) PO SCH (05:48)
[2020-04-17] MEDS: inSUlin ASPART (NovoLOG) 1 UNIT/0.01 ML (CHARGE PER UNIT) SC SCH ×4 (05:48→17:18)
[2020-04-17 07:12] VITALS: BP 120/66
--- NOTE | 2020-04-17 07:55 | Diagnostic Imaging Report ---
Indication: COVID pneumonia AP view of the chest is obtained with comparison made to study of one day earlier. Endotracheal tube remains in place with tip at the level of the thoracic inlet. There is mild cardiomegaly and pulmonary venous congestion. Bilateral airspace disease appears to be predominantly perihilar in distribution. There is blunting of costophrenic sulci, greater on the left. Overall findings have not significantly changed. IMPRESSION: Bilateral airspace disease, greater on the left with associated pleural fluid. No new abnormality is identified. Report was faxed to [facility] by myles at 7:55am. Dictated by: Dictated on workstation # [id number]
[2020-04-17] MEDS: DOCUSATE SODIUM 10 MG/ML 10 ML UDC (COLACE) PO SCH ×2 (08:08→19:47)
[2020-04-17] MEDS: ARTIFICIAL TEARS OINT (LACRI-LUBE) 3.5 GM TUBE OU SCH ×2 (08:08→19:47)
[2020-04-17] MEDS: METOCLOPRAMIDE INJ 10 MG/2 ML (REGLAN) IVP SCH ×2 (08:08→19:46)
[2020-04-17] MEDS: ENOXAPARIN 60 MG/0.6 ML (LOVENOX) SYR SC SCH ×2 (08:08→19:47)
[2020-04-17] MEDS: MICONAZOLE 2% POWDER (DESENEX AF) 90 GM TOP SCH ×2 (08:08→19:47)
[2020-04-17] MEDS: FAMOTIDINE 20MG/2ML IV (PEPCID) IV SCH ×2 (08:08→19:46)
[2020-04-17 11:01] VITALS: BP 144/89
[2020-04-17] MEDS: DexMEDEtomidine PRE MIX 100 ML IV SCH (11:35)
--- NOTE | 2020-04-17 14:02 | NUR ---
Phone call placed to Adela, sister. Updates given and questions answered. Adela states she has no further questions or concerns at this time.
[2020-04-17 15:19] VITALS: BP 147/92
[2020-04-17 18:51] VITALS: BP 179/110
[2020-04-17 21:38] VITALS: BP 153/89
[2020-04-18] MEDS: inSUlin ASPART (NovoLOG) 1 UNIT/0.01 ML (CHARGE PER UNIT) SC SCH ×4 (00:03→17:45)
[2020-04-18] MEDS: LACTATED RINGERS 1,000 ML IV SCH ×2 (00:59→08:28)
[2020-04-18] MEDS: fentaNYL DRIP PRE-MIX 250 ML IV SCH ×6 (00:59→23:17)
[2020-04-18 01:47] VITALS: BP 153/89
[2020-04-18] MEDS: RT-ALBUTEROL INHALER HFA (VENTOLIN HFA) 18 GM IH SCH ×6 (01:47→20:56)
[2020-04-18] MEDS: IPRATROPIUM INHALER (ATROVENT) 12.9 GM INH SCH ×6 (01:47→20:56)
[2020-04-18] MEDS: MEROPENEM 500 MG in WATER (STERILE) FOR INJECTION 10 ML IV SCH ×4 (03:33→20:07)
[2020-04-18 03:35] LABS: ABG BASE EXCESS 5.9 MMOL/L (-2.5-2.5); ABG OXYGEN SATURATION 96 % (94-100); ABG PCO2 47 MMHG (35-45); ABG PH 7.43 (7.37-7.43); ABG PO2 95 MMHG (79-93); ABG TCO2 31.6 MMOL/L (21.0-31.0)
[2020-04-18 03:42] LABS: BASOPHILS % (AUTO) 0 % (0-10); EOSINOPHILS # (AUTO) 0.2 10^3/uL (0.0-0.3); EOSINOPHILS % (AUTO) 3 % (0-10); HEMATOCRIT 34 % (35-52); HEMOGLOBIN 10.8 g/dL (11.5-16.0); LYMPHOCYTES # (AUTO) 0.8 10^3/uL (1.0-4.0); LYMPHOCYTES % (AUTO) 12 % (12-44); MEAN CORPUSCULAR HEMOGLOBIN 28 pg (25-34); MEAN CORPUSCULAR HGB CONC 31 g/dL (32-36); MEAN CORPUSCULAR VOLUME 90 fL (80-99); MEAN PLATELET VOLUME 10.5 fL (9.0-12.2); MONOCYTES # (AUTO) 0.5 10^3/uL (0.0-1.0); MONOCYTES % (AUTO) 7 % (0-12); NEUTROPHILS # (AUTO) 5.2 10^3/uL (1.8-7.8); NEUTROPHILS % (AUTO) 77 % (42-75); PLATELET COUNT 316 10^3/uL (130-400); WHITE BLOOD COUNT 6.8 10^3/uL (4.3-11.0)
[2020-04-18 03:45] LABS: INSPIRED O2 45%; PATIENT TEMP 37.3; VENTILATOR YES
[2020-04-18 03:48] LABS: CHLORIDE 96 MMOL/L (98-107); POTASSIUM 4.4 MMOL/L (3.6-5.0); SODIUM 134 MMOL/L (135-145)
[2020-04-18 03:49] LABS: CALCIUM 8.8 MG/DL (8.5-10.1)
[2020-04-18 03:50] LABS: GLUCOSE 169 MG/DL (70-105)
[2020-04-18 03:51] LABS: CARBON DIOXIDE 25 MMOL/L (21-32)
[2020-04-18 03:53] LABS: GFR ESTIMATED > 60; PHOSPHORUS 4.5 MG/DL (2.3-4.7)
[2020-04-18 03:54] LABS: BUN/CREATININE RATIO 12
[2020-04-18 03:56] LABS: MAGNESIUM 1.7 MG/DL (1.6-2.4)
[2020-04-18] MEDS: KCL 20 MEQ TAB (K-DUR) PO SCH (04:43)
[2020-04-18] MEDS: POTASSIUM CL 10MEQ/50ML IVPB 50 ML IV SCH (04:43)
[2020-04-18] MEDS: MAGNESIUM 1 GM/100 ML IVPB 100 ML IV SCH (04:43)
[2020-04-18] MEDS: LEVOTHYROXINE 100 MCG (LEVOTHROID) TAB PO SCH (05:21)
[2020-04-18] MEDS: MIDAZOLAM DRIP PRE-MIX 100 ML IV SCH ×2 (05:21→15:03)
[2020-04-18 07:05] VITALS: BP 133/68
--- NOTE | 2020-04-18 07:45 | Diagnostic Imaging Report ---
INDICATION: Respiratory failure Portable chest 1:54 AM ET tube projects over the trachea. NG tube projects over the stomach. There are diffuse alveolar infiltrates in the lungs. IMPRESSION: Diffuse alveolar infiltrate in the lungs. No appreciable change compared to the previous day. Dictated by: Dictated on workstation # [id number]
[2020-04-18] MEDS: DOCUSATE SODIUM 10 MG/ML 10 ML UDC (COLACE) PO SCH ×2 (08:22→20:08)
[2020-04-18] MEDS: METOCLOPRAMIDE INJ 10 MG/2 ML (REGLAN) IVP SCH ×2 (08:23→20:07)
[2020-04-18] MEDS: ENOXAPARIN 60 MG/0.6 ML (LOVENOX) SYR SC SCH ×2 (08:23→20:08)
[2020-04-18] MEDS: FAMOTIDINE 20MG/2ML IV (PEPCID) IV SCH ×2 (08:23→20:07)
[2020-04-18] MEDS: MICONAZOLE 2% POWDER (DESENEX AF) 90 GM TOP SCH ×2 (08:23→20:08)
[2020-04-18] MEDS: ARTIFICIAL TEARS OINT (LACRI-LUBE) 3.5 GM TUBE OU SCH ×2 (08:28→20:08)
--- NOTE | 2020-04-18 08:33 | Physical Therapy Progress Note ---
Therapy Progress Note This note is for 04/17/2020. PROM B U/LE in all available planes RANJANA ANDERSON PT Apr 18, 2020 08:33
--- NOTE | 2020-04-18 09:30 | NUR ---
Permission for pt to trial supine with turns q2 after reviewing pt's chart with TOY Flores.
[2020-04-18 10:53] VITALS: BP 138/67
[2020-04-18] MEDS: DexMEDEtomidine PRE MIX 100 ML IV SCH (12:32)
[2020-04-18 15:05] VITALS: BP 159/79
--- NOTE | 2020-04-18 15:17 | Progress Note - Hospitalist ---
Subjective HPI/CC On Admission Date Seen by Provider: Apr 18, 2020 Time Seen by Provider: 10:35 Subjective/Events-last exam She is intubated and sedated. Objective Exam Vital Signs Vital Signs Date Time Temp Pulse Resp B/P (MAP) Pulse Ox O2 Delivery O2 Flow Rate FiO2 04/18/20 15:05 118 24 92 50 04/18/20 11:00 36.9 Mechanical Ventilator 50.00 Capillary Refill : Less Than 3 Seconds General Appearance: No Apparent Distress, Obese Respiratory: No Respiratory Distress, Decreased Breath Sounds, Other (intubated and mechanically ventilated) Cardiovascular: Regular Rate, Rhythm, No Murmur Gastrointestinal: Normal Bowel Sounds, Soft Extremity: Normal Inspection, Pedal Edema Neurologic/Psychiatric: Other (sedated) Skin: Normal Color, Warm/Dry Results/Procedures Lab Laboratory Tests 04/18/20 03:15 Patient resulted labs reviewed. Imaging: Reviewed Imaging Report Assessment/Plan Assessment and Plan Assess & Plan/Chief Complaint Acute respiratory distress syndrome due to COVID-19 Pneumonia Decadron s/p Remdesivir and convalescent plasma eICU assisting with ventilator management Ventilator requirements improving Proning Continue Merrem Hypokalemia Hypomagnesemia Continue to monitor and replace as needed Super-super obesity Clinically significant, no acute management needs DVT Prophylaxis: Lovenox Diagnosis/Problems Diagnosis/Problems (1) Acute respiratory distress syndrome (ARDS) due to COVID-19 virus Status: Acute (2) PNA (pneumonia) Status: Acute (3) Super-super obese Status: Chronic (4) Hypothyroidism Status: Chronic (5) Hypokalemia Status: Resolved Resolution Date/Time: 04/18/20 @ 15:18 (6) Hypomagnesemia Status: Resolved Resolution Date/Time: 04/18/20 @ 15:18 Clinical Quality Measures DVT/VTE Risk/Contraindication: Risk Factor Score Per Nursin RFS Level Per Nursing on Admit: 4+=Very High MONA SPRAGUE MD Apr 18, 2020 15:17
[2020-04-18 17:59] VITALS: BP 153/89
[2020-04-18 20:56] VITALS: BP 153/89
[2020-04-19 01:07] VITALS: BP 173/70
[2020-04-19] MEDS: RT-ALBUTEROL INHALER HFA (VENTOLIN HFA) 18 GM IH SCH ×6 (01:07→23:22)
[2020-04-19] MEDS: MIDAZOLAM DRIP PRE-MIX 100 ML IV SCH ×3 (01:08→17:58)
[2020-04-19] MEDS: inSUlin ASPART (NovoLOG) 1 UNIT/0.01 ML (CHARGE PER UNIT) SC SCH ×5 (01:08→23:48)
[2020-04-19] MEDS: MEROPENEM 500 MG in WATER (STERILE) FOR INJECTION 10 ML IV SCH ×4 (03:15→20:40)
[2020-04-19 04:01] LABS: ABG BASE EXCESS 6.9 MMOL/L (-2.5-2.5); ABG OXYGEN SATURATION 96 % (94-100); ABG PCO2 45 MMHG (35-45); ABG PH 7.45 (7.37-7.43); ABG PO2 76 MMHG (79-93); ABG TCO2 32.6 MMOL/L (21.0-31.0)
[2020-04-19 04:02] LABS: ALLENS TEST ART LINE; BASOPHILS % (AUTO) 0 % (0-10); EOSINOPHILS # (AUTO) 0.1 10^3/uL (0.0-0.3); EOSINOPHILS % (AUTO) 2 % (0-10); HEMATOCRIT 31 % (35-52); HEMOGLOBIN 9.8 g/dL (11.5-16.0); INSPIRED O2 40%; LYMPHOCYTES # (AUTO) 0.4 10^3/uL (1.0-4.0); LYMPHOCYTES % (AUTO) 6 % (12-44); MEAN CORPUSCULAR HEMOGLOBIN 28 pg (25-34); MEAN CORPUSCULAR HGB CONC 31 g/dL (32-36); MEAN CORPUSCULAR VOLUME 90 fL (80-99); MEAN PLATELET VOLUME 10.5 fL (9.0-12.2); MONOCYTES # (AUTO) 0.5 10^3/uL (0.0-1.0); MONOCYTES % (AUTO) 7 % (0-12); NEUTROPHILS # (AUTO) 5.9 10^3/uL (1.8-7.8); NEUTROPHILS % (AUTO) 84 % (42-75); PATIENT TEMP 36.1; PLATELET COUNT 287 10^3/uL (130-400); VENTILATOR YES
[2020-04-19 04:10] LABS: CHLORIDE 93 MMOL/L (98-107); POTASSIUM 4.5 MMOL/L (3.6-5.0); SODIUM 132 MMOL/L (135-145)
[2020-04-19 04:11] LABS: CALCIUM 8.8 MG/DL (8.5-10.1)
[2020-04-19 04:12] LABS: GLUCOSE 149 MG/DL (70-105)
[2020-04-19 04:13] LABS: CARBON DIOXIDE 27 MMOL/L (21-32)
[2020-04-19 04:15] LABS: PHOSPHORUS 4.3 MG/DL (2.3-4.7)
[2020-04-19 04:16] LABS: CREATININE SERUM 0.53 MG/DL (0.60-1.30); GFR ESTIMATED > 60
[2020-04-19 04:17] LABS: BUN/CREATININE RATIO 13
[2020-04-19 04:18] LABS: MAGNESIUM 1.6 MG/DL (1.6-2.4)
[2020-04-19] MEDS: fentaNYL DRIP PRE-MIX 250 ML IV SCH ×5 (04:46→22:43)
[2020-04-19] MEDS: POTASSIUM CL 10MEQ/50ML IVPB 50 ML IV SCH (06:33)
[2020-04-19] MEDS: KCL 20 MEQ TAB (K-DUR) PO SCH (06:33)
[2020-04-19] MEDS: MAGNESIUM 1 GM/100 ML IVPB 100 ML IV SCH ×3 (06:33→09:15)
[2020-04-19] MEDS: LEVOTHYROXINE 100 MCG (LEVOTHROID) TAB PO SCH (06:34)
[2020-04-19 07:20] VITALS: BP 150/70
[2020-04-19] MEDS: IPRATROPIUM INHALER (ATROVENT) 12.9 GM INH SCH ×5 (07:20→23:23)
[2020-04-19] MEDS: DOCUSATE SODIUM 10 MG/ML 10 ML UDC (COLACE) PO SCH ×2 (08:15→20:40)
[2020-04-19] MEDS: MICONAZOLE 2% POWDER (DESENEX AF) 90 GM TOP SCH ×2 (08:16→20:40)
[2020-04-19] MEDS: METOCLOPRAMIDE INJ 10 MG/2 ML (REGLAN) IVP SCH ×2 (08:16→20:40)
[2020-04-19] MEDS: ENOXAPARIN 60 MG/0.6 ML (LOVENOX) SYR SC SCH ×2 (08:16→20:39)
[2020-04-19] MEDS: FAMOTIDINE 20MG/2ML IV (PEPCID) IV SCH ×2 (08:16→20:40)
[2020-04-19] MEDS: ARTIFICIAL TEARS OINT (LACRI-LUBE) 3.5 GM TUBE OU SCH ×2 (08:16→20:41)
--- NOTE | 2020-04-19 09:09 | Diagnostic Imaging Report ---
INDICATION: COVID Positive. EXAMINATION: Chest from 04/19/2020 COMPARISON: 04/18/2020 FINDINGS: Single view chest demonstrates an ET tube tip unremarkable in positioning. There is a right sided PICC line tip in the distal SVC. Heart is prominent. Pulmonary vasculature slightly congested. Findings of edema seen in both lungs. Minimal bibasal atelectasis. No pneumothorax. IMPRESSION: 1. Mild pulmonary edema. Other findings as above. Dictated by: Dictated on workstation # [id number]
[2020-04-19] MEDS: LACTATED RINGERS 1,000 ML IV SCH (10:24)
[2020-04-19 10:28] VITALS: BP 125/72
[2020-04-19] MEDS ORDERED: FUROSEMIDE 40 MG/4 ML INJ (LASIX) IVP ONE (10:30)
--- NOTE | 2020-04-19 11:25 | NUR ---
attempted to change picc line caps 1/2 caps changed due to second cap being on to tight.
--- NOTE | 2020-04-19 12:11 | Progress Note - Hospitalist ---
Subjective HPI/CC On Admission Date Seen by Provider: Apr 19, 2020 Time Seen by Provider: 07:40 Subjective/Events-last exam She remains intubated and sedated. Objective Exam Vital Signs Vital Signs Date Time Temp Pulse Resp B/P (MAP) Pulse Ox O2 Delivery O2 Flow Rate FiO2 04/19/20 11:00 37.3 101 24 160/81 (103) 96 Mechanical Ventilator 40.00 04/19/20 10:28 40 Capillary Refill : Less Than 3 Seconds General Appearance: No Apparent Distress, WD/WN Respiratory: No Respiratory Distress, Decreased Breath Sounds, Other (intubated and mechanically ventilated) Cardiovascular: No Murmur, Tachycardia Gastrointestinal: Normal Bowel Sounds, Soft Extremity: Normal Inspection, Pedal Edema Neurologic/Psychiatric: Other (sedated) Skin: Normal Color, Warm/Dry Results/Procedures Lab Laboratory Tests 04/19/20 03:20 Patient resulted labs reviewed. Imaging: Reviewed Imaging Report Assessment/Plan Assessment and Plan Assess & Plan/Chief Complaint Acute respiratory distress syndrome due to COVID-19 Pneumonia Decadron s/p Remdesivir and convalescent plasma eICU assisting with ventilator management Ventilator requirements improving Proning as tolerated Continue Merrem Hypokalemia Hypomagnesemia Continue to monitor and replace as needed Super-super obesity Clinically significant, no acute management needs DVT Prophylaxis: Lovenox Diagnosis/Problems Diagnosis/Problems (1) Acute respiratory distress syndrome (ARDS) due to COVID-19 virus Status: Acute (2) PNA (pneumonia) Status: Acute (3) Super-super obese Status: Chronic (4) Hypothyroidism Status: Chronic (5) Hypokalemia Status: Resolved Resolution Date/Time: 04/18/20 @ 15:18 (6) Hypomagnesemia Status: Resolved Resolution Date/Time: 04/18/20 @ 15:18 Clinical Quality Measures DVT/VTE Risk/Contraindication: Risk Factor Score Per Nursin RFS Level Per Nursing on Admit: 4+=Very High MONA SPRAGUE MD Apr 19, 2020 12:11
[2020-04-19] MEDS: DexMEDEtomidine PRE MIX 100 ML IV SCH (13:12)
[2020-04-19 14:27] VITALS: BP 147/78
[2020-04-19] MEDS: APAP 325 MG/10.15 ML LIQ (TYLENOL) UDC PO PRN (18:10)
[2020-04-19 20:45] VITALS: BP 136/72
[2020-04-19 23:23] VITALS: BP 128/66
[2020-04-20] MEDS: APAP 325 MG/10.15 ML LIQ (TYLENOL) UDC PO PRN (00:34)
[2020-04-20] MEDS: MIDAZOLAM DRIP PRE-MIX 100 ML IV SCH ×2 (03:15→12:50)
[2020-04-20] MEDS: fentaNYL DRIP PRE-MIX 250 ML IV SCH ×3 (03:15→12:50)
[2020-04-20 03:21] LABS: BASOPHILS % (AUTO) 1 % (0-10); EOSINOPHILS # (AUTO) 0.3 10^3/uL (0.0-0.3); EOSINOPHILS % (AUTO) 5 % (0-10); HEMATOCRIT 29 % (35-52); HEMOGLOBIN 8.9 g/dL (11.5-16.0); LYMPHOCYTES # (AUTO) 0.7 10^3/uL (1.0-4.0); LYMPHOCYTES % (AUTO) 12 % (12-44); MEAN CORPUSCULAR HEMOGLOBIN 28 pg (25-34); MEAN CORPUSCULAR HGB CONC 31 g/dL (32-36); MEAN CORPUSCULAR VOLUME 89 fL (80-99); MEAN PLATELET VOLUME 10.5 fL (9.0-12.2); MONOCYTES # (AUTO) 0.5 10^3/uL (0.0-1.0); MONOCYTES % (AUTO) 9 % (0-12); NEUTROPHILS # (AUTO) 4.2 10^3/uL (1.8-7.8); NEUTROPHILS % (AUTO) 73 % (42-75); PLATELET COUNT 328 10^3/uL (130-400); WHITE BLOOD COUNT 5.7 10^3/uL (4.3-11.0)
[2020-04-20 03:21] LABS: ABG BASE EXCESS 11.2 MMOL/L (-2.5-2.5); ABG OXYGEN SATURATION 96 % (94-100); ABG PCO2 48 MMHG (35-45); ABG PH 7.48 (7.37-7.43); ABG PO2 82 MMHG (79-93); ABG TCO2 36.7 MMOL/L (21.0-31.0)
[2020-04-20 03:23] LABS: ALLENS TEST YES-POS; INSPIRED O2 40%; PATIENT TEMP 37.5; VENTILATOR YES
[2020-04-20 03:31] LABS: CHLORIDE 93 MMOL/L (98-107); POTASSIUM 3.9 MMOL/L (3.6-5.0); SODIUM 135 MMOL/L (135-145)
[2020-04-20 03:33] LABS: CALCIUM 8.7 MG/DL (8.5-10.1); GLUCOSE 141 MG/DL (70-105)
[2020-04-20 03:35] LABS: CARBON DIOXIDE 31 MMOL/L (21-32)
[2020-04-20 03:37] LABS: CREATININE SERUM 0.54 MG/DL (0.60-1.30); GFR ESTIMATED > 60; PHOSPHORUS 3.8 MG/DL (2.3-4.7)
[2020-04-20 03:38] LABS: BUN/CREATININE RATIO 13
[2020-04-20 03:39] LABS: MAGNESIUM 1.8 MG/DL (1.6-2.4)
[2020-04-20] MEDS: MEROPENEM 500 MG in WATER (STERILE) FOR INJECTION 10 ML IV SCH ×2 (03:56→07:44)
[2020-04-20] MEDS: POTASSIUM CL 10MEQ/50ML IVPB 50 ML IV SCH (05:51)
[2020-04-20] MEDS: MAGNESIUM 1 GM/100 ML IVPB 100 ML IV SCH (05:52)
[2020-04-20] MEDS: inSUlin ASPART (NovoLOG) 1 UNIT/0.01 ML (CHARGE PER UNIT) SC SCH ×2 (05:52→12:41)
[2020-04-20] MEDS: KCL 20 MEQ TAB (K-DUR) PO SCH (05:52)
--- NOTE | 2020-04-20 06:40 | Progress Note - Hospitalist ---
Subjective HPI/CC On Admission Date Seen by Provider: Apr 20, 2020 Time Seen by Provider: 04:45 Subjective/Events-last exam she remains intubated and sedated. Objective Exam Vital Signs Vital Signs Date Time Temp Pulse Resp B/P (MAP) Pulse Ox O2 Delivery O2 Flow Rate FiO2 04/20/20 05:00 37.3 92 23 143/70 (91) 96 Mechanical Ventilator 40.00 04/19/20 23:23 40 Capillary Refill : Less Than 3 Seconds General Appearance: No Apparent Distress, Obese, Other (intubated and sedated) Respiratory: No Respiratory Distress, Decreased Breath Sounds, Other (intubated and mechanically ventilated) Cardiovascular: No Murmur, Tachycardia Gastrointestinal: Normal Bowel Sounds, Soft Extremity: Normal Inspection, Pedal Edema Neurologic/Psychiatric: Other (sedated) Skin: Normal Color, Warm/Dry Results/Procedures Lab Laboratory Tests 04/20/20 03:00 Patient resulted labs reviewed. Imaging: Reviewed Imaging Report Assessment/Plan Assessment and Plan Assess & Plan/Chief Complaint Acute respiratory distress syndrome due to COVID-19 Pneumonia s/p Decadron, Remdesivir and convalescent plasma eICU assisting with ventilator management Ventilator requirements improving Proning as tolerated Continue Merrem Super-super obesity Clinically significant, no acute management needs DVT Prophylaxis: Lovenox Hypokalemia, resolved Hypomagnesemia, resolved Diagnosis/Problems Diagnosis/Problems (1) Acute respiratory distress syndrome (ARDS) due to COVID-19 virus Status: Acute (2) PNA (pneumonia) Status: Acute (3) Super-super obese Status: Chronic (4) Hypothyroidism Status: Chronic (5) Hypokalemia Status: Resolved Resolution Date/Time: 04/18/20 @ 15:18 (6) Hypomagnesemia Status: Resolved Resolution Date/Time: 04/18/20 @ 15:18 Clinical Quality Measures DVT/VTE Risk/Contraindication: Risk Factor Score Per Nursin RFS Level Per Nursing on Admit: 4+=Very High MONA SPRAGUE MD Apr 20, 2020 06:40
[2020-04-20] MEDS: LEVOTHYROXINE 100 MCG (LEVOTHROID) TAB PO SCH (06:49)
[2020-04-20] MEDS: RT-ALBUTEROL INHALER HFA (VENTOLIN HFA) 18 GM IH SCH ×2 (07:20→10:30)
[2020-04-20] MEDS: IPRATROPIUM INHALER (ATROVENT) 12.9 GM INH SCH ×2 (07:20→10:31)
[2020-04-20 07:21] VITALS: BP 140/69
[2020-04-20] MEDS: METOCLOPRAMIDE INJ 10 MG/2 ML (REGLAN) IVP SCH (07:44)
[2020-04-20] MEDS: ENOXAPARIN 60 MG/0.6 ML (LOVENOX) SYR SC SCH (07:44)
[2020-04-20] MEDS: DOCUSATE SODIUM 10 MG/ML 10 ML UDC (COLACE) PO SCH (07:45)
[2020-04-20] MEDS: ARTIFICIAL TEARS OINT (LACRI-LUBE) 3.5 GM TUBE OU SCH (07:45)
[2020-04-20] MEDS: FAMOTIDINE 20MG/2ML IV (PEPCID) IV SCH (07:45)
[2020-04-20] MEDS: MICONAZOLE 2% POWDER (DESENEX AF) 90 GM TOP SCH (07:46)
--- NOTE | 2020-04-20 08:23 | Diagnostic Imaging Report ---
EXAMINATION: Chest radiograph, portable AP view. DATE: 04/20/2020 5:12 AM INDICATION: 59-year-old female, COVID positive. Intubation. COMPARISON: April 19, 2020. FINDINGS: The endotracheal tube is approximately 3.1 cm above the candice. The right-sided PICC line overlies the mid SVC. Stable overall appearance of the cardia mediastinal silhouette. There is no identified pneumothorax. There is multifocal bilateral lung consolidation which is essentially unchanged. IMPRESSION: 1. Unchanged multifocal bilateral lung consolidation. 2. Support lines and tubes as above. Dictated by: Dictated on workstation # [id number]
[2020-04-20 10:32] VITALS: BP 131/72
[2020-04-20] MEDS ORDERED: AC160U10 PO (11:47)
[2020-04-20] MEDS ORDERED: ALBU18HF2 IH (11:47)
[2020-04-20] MEDS ORDERED: ZINC57OI6 TOP (11:47)
[2020-04-20] MEDS ORDERED: METO5VIA3 IVP (11:47)
[2020-04-20] MEDS ORDERED: IPR14IN INH ×2 (11:47)
[2020-04-20] MEDS ORDERED: ENOX60DI7 SC (11:47)
[2020-04-20] MEDS ORDERED: [UNRECOGNIZED DRUG - CODE] IV (11:47)
[2020-04-20] MEDS ORDERED: [UNRECOGNIZED DRUG - CODE] IV (11:47)
[2020-04-20] MEDS ORDERED: FAMO20VI8 IV (11:47)
[2020-04-20] MEDS ORDERED: MICO90PO TOP (11:47)
[2020-04-20] MEDS ORDERED: LEVO100T PO (11:47)
[2020-04-20] MEDS ORDERED: MERO500V22 IV (11:47)
[2020-04-20] MEDS ORDERED: HYDR20VI7 IV (11:47)
[2020-04-20] MEDS ORDERED: [UNRECOGNIZED DRUG - CODE] IV (11:47)
[2020-04-20] MEDS ORDERED: Artificial Tears OU (11:47)
--- NOTE | 2020-04-20 13:16 | Discharge Summary ---
Discharge Summary Hospital Course Was the Problem List Reviewed?: Yes Problems/Dx: (1) Acute respiratory distress syndrome (ARDS) due to COVID-19 virus Status: Acute (2) PNA (pneumonia) Status: Acute (3) Super-super obese Status: Chronic (4) Hypothyroidism Status: Chronic (5) Hypokalemia Status: Resolved (6) Hypomagnesemia Status: Resolved Hospital Course Date of Admission: Mar 27, 2020 at 13:33 Admission Diagnosis : Acute respiratory failure due to COVID-19 Family Physician/Provider: Mike Curry DO Date of Discharge: 04/20/20 Discharge Diagnosis: Acute respiratory distress syndrome due to COVID-19 Hospital Course: Beata Horn is a 59 year old female who was admitted with acute respiratory failure due to COVID-19. She was initially on BiPAP but rapidly declined and required intubation 03/27. She remained on the ventilator throughout her hospitalization. She was treated with Decadron, Remdesivir, and convalescent plasma. She was treated with IV antibiotics for bacterial pneumonia. Due to her prolonged mechanical ventilation and slow weaning process, [facility] 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 She was transferred to [facility] in critical (requiring mechanical ventilation) but stable condition. Labs and Pending Lab Test: Laboratory Tests 04/19/20 17:01: Glucometer 122H 04/19/20 23:38: Glucometer 150H 04/20/20 03:00: White Blood Count 5.7, Red Blood Count 3.23L, Hemoglobin 8.9L, Hematocrit 29L, Mean Corpuscular Volume 89, Mean Corpuscular Hemoglobin 28, Mean Corpuscular Hemoglobin Concent 31L, Red Cell Distribution Width 15.5H, Platelet Count 328, Mean Platelet Volume 10.5, Immature Granulocyte % (Auto) 1, Neutrophils (%) (Auto) 73, Lymphocytes (%) (Auto) 12, Monocytes (%) (Auto) 9, Eosinophils (%) (Auto) 5, Basophils (%) (Auto) 1, Neutrophils # (Auto) 4.2, Lymphocytes # (Auto) 0.7L, Monocytes # (Auto) 0.5, Eosinophils # (Auto) 0.3, Basophils # (Auto) 0.0, Immature Granulocyte # (Auto) 0.0, Sodium Level 135, Potassium Level 3.9, Chloride Level 93L, Carbon Dioxide Level 31, Anion Gap 11, Blood Urea Nitrogen 7, Creatinine 0.54L, Estimat Glomerular Filtration Rate > 60, BUN/Creatinine Ratio 13, Glucose Level 141H, Calcium Level 8.7, Phosphorus Level 3.8, Magnesium Level 1.8 04/20/20 03:10: Blood Gas Puncture Site LEFT RADIAL, Blood Gas Patient Temperature 37.5, Arterial Blood pH 7.48H, Arterial Blood Partial Pressure CO2 48H, Arterial Blood Partial Pressure O2 82, Arterial Blood HCO3 35H, Arterial Blood Total CO2 36.7H, Arterial Blood Oxygen Saturation 96, Arterial Blood Base Excess 11.2H, Luis Test YES-POS, Blood Gas Ventilator Setting YES, Blood Gas Inspired Oxygen 40% 04/20/20 12:11: Glucometer 120H Microbiology 04/11/20 Gram Stain - Final, Complete 04/11/20 Sputum Culture - Final, Complete Enterobacter cloacae complex 04/11/20 Urine Culture - Final, Complete Enterobacter cloacae complex Enterococcus faecium Mixed Bacterial Lacey 04/11/20 Blood Culture - Final, Complete Staph, Coag Neg (RISK OFFICER) Home Meds Active Boudreauxs (Zinc Oxide) 57 Gm Oint...g. 0 Gm TOP NEEDED PRN 28 Days Lotrimin AF (Miconazole Nitrate) 90 Gm Powder 0 Gm TOP BID 28 Days Synthroid (Levothyroxine Sodium) 100 Mcg Tablet 200 Mcg PO DAILY@0630 30 Days Metoclopramide HCl 5 Mg/1 Ml Vial 10 Mg IVP BID 28 Days Famotidine 20 mg/2 ml Vial (Famotidine/Pf) 20 Mg/2 Ml Vial 20 Mg IV BID 28 Days [Artificial Tears] 3.5 GM Oint 0 Gm OU BID Lactated Ringers (Ringers Solution,Lactated) 1,000 Ml Iv.soln 1,000 Ml IV DAILY 28 Days 30 MLS PER HOUR. Midazolam 100Mg/100Ml-0.8%NaCl (Midazolam in NaCl,Iso-Osmot/Pf) 100 Mg/100 Ml Vial 100 Mg IV Q1HR 28 Days TITRATE MEDICATION TO KEEP PATIENT COMFORTABLE ON VENTILATOR. CURRENTLY RUNNING AT 10. Acetaminophen 325 Mg/10.15 Ml Soln 650 Mg PO Q4H PRN 28 Days Merrem (Meropenem) 500 Mg Vial 500 Mg IV Q6H 2 Days LAST DOSE TO BE ON THE March Fentanyl 1,250 Mcg/50-0.9%NaCl (Fentanyl Citrate-0.9 % NaCl/Pf) 1,250 Mcg/50 Ml Tobacco Flavorer.syring 1,250 Mcg IV Q1HR 28 Days 1250 MCG IN 250 NS, TITRATE MED TO KEEP PATIENT COMFORTABLE. CURRENT RATE 275 MCG/HR. Hydralazine HCl 20 Mg/1 Ml Vial 10 Mg IV Q6HR PRN 28 Days Enoxaparin Sodium 60 Mg/0.6 Ml Syringe 60 Mg SC Q12H 28 Days Ventolin Hfa (Albuterol Sulfate) 18 Gm Hfa.aer.ad 0 Gm IH RTQ4HR 28 Days Atrovent Hfa (Ipratropium Bryan) 12.9 Gm Aers 0 Gm INH RTQ2H PRN 28 Days Atrovent Hfa (Ipratropium Bryan) 12.9 Gm Aers 0 Gm INH RTQ4HR 28 Days Assessment/Pt Instructions Patient transferred to [facility]. Handoff was given to Dr. Pepe. Discharge Planning: >30 minutes discharge planning Discharge Physical Examination Vital Signs Vital Signs Date Time Temp Pulse Resp B/P (MAP) Pulse Ox O2 Delivery O2 Flow Rate FiO2 04/20/20 12:50 93 21 131/72 04/20/20 10:32 88 35 04/20/20 10:00 37.3 Mechanical Ventilator 35.00 Allergies: Coded Allergies: Penicillins (Verified Allergy, Unknown, 03/27/20) acetylcholine (Verified Allergy, Unknown, 03/27/20) amoxicillin (Verified Allergy, Unknown, 03/27/20) clarithromycin (Verified Allergy, Unknown, 03/27/20) levofloxacin (Verified Allergy, Unknown, 03/27/20) Copy Copies To 1: MIKE CURRY DO Discharge Summary Date of Admission Mar 27, 2020 at 13:33 Date of Discharge Discharge Date: Apr 20, 2020 Discharge Time: 13:09 Admission Diagnosis Acute respiratory failure due to COVID-19 Consults/Procedures Consulations Pulmonology Discharge Diagnosis Acute respiratory distress syndrome due to COVID-19 (1) Acute respiratory distress syndrome (ARDS) due to COVID-19 virus Status: Acute (2) PNA (pneumonia) Status: Acute (3) Super-super obese Status: Chronic (4) Hypothyroidism Status: Chronic (5) Hypokalemia Status: Resolved (6) Hypomagnesemia Status: Resolved Clinical Quality Measures DVT/VTE Risk/Contraindication: Risk Factor Score Per Nursin RFS Level Per Nursing on Admit: 4+=Very High MONA SPRAGUE MD Apr 20, 2020 13:04
[2020-04-20 13:45] VITALS: BP 131/72
== END 2020-04-20 13:45 | DRG 207 ==
LOC: ER 11:53 → ICU 13:33
PROVIDERS: ADMIT Family Medicine; ATTEND Internal Medicine
PROC: XW033E5 Introduction of Remdesivir Anti-infective into Peripheral Vein, Percutaneous Approach, New Technology Group 5 (ICD-10-PCS; principal; 2020-03-27)
PROC: 5A1955Z Respiratory Ventilation, Greater than 96 Consecutive Hours (ICD-10-PCS; 2020-03-27)
PROC: XW13325 Transfusion of Convalescent Plasma (Nonautologous) into Peripheral Vein, Percutaneous Approach, New Technology Group 5 (ICD-10-PCS; 2020-03-27)
PROC: 0BH17EZ Insertion of Endotracheal Airway into Trachea, Via Natural or Artificial Opening (ICD-10-PCS; 2020-03-27)
PROC: 02HV33Z Insertion of Infusion Device into Superior Vena Cava, Percutaneous Approach (ICD-10-PCS; 2020-04-15)
DX: U07.1 COVID-19 (principal); J80 Acute respiratory distress syndrome; J12.89 Other viral pneumonia; J15.9 Unspecified bacterial pneumonia; G72.81 Critical illness myopathy; N39.0 Urinary tract infection, site not specified; Z68.44 Body mass index [BMI] 60.0-69.9, adult; E03.9 Hypothyroidism, unspecified; E87.6 Hypokalemia; E83.42 Hypomagnesemia; E66.01 Morbid (severe) obesity due to excess calories; E11.9 Type 2 diabetes mellitus without complications; K21.9 Gastro-esophageal reflux disease without esophagitis; M19.90 Unspecified osteoarthritis, unspecified site; F32.9 Major depressive disorder, single episode, unspecified; J45.909 Unspecified asthma, uncomplicated; Z73.0 Burn-out; Z88.0 Allergy status to penicillin; Z88.1 Allergy status to other antibiotic agents; Z79.4 Long term (current) use of insulin
CPT/HCPCS: 36415; 36569; 51702; 71045; 76937; 80048; 80053; 81000; 82805; 82962; 83605; 83735; 83880; 84100; 84145; 84478; 85025; 85379; 85610; 85730; 86141; 86900; 86901; 87040; 87070; 87077; 87081; 87088; 87186; 87205; 94002; 94003; 94640; 94660; 94799; 99291